=== PATIENT | female | born 1950 | race Two or more races ===

== ENCOUNTER 2019-05-08 20:40 | Inpatient (IN) ==
[2019-05-08] MEDS ORDERED: ONDANSETRON INJ 2 MG/ML 2 ML VIAL IV STA (21:48)
[2019-05-08] MEDS ORDERED: SODIUM CHLORIDE 0.9% 1000ML 1,000 ML IV ONE (21:48)
[2019-05-08 22:01] LABS: Hemoglobin 13.7 g/dL (12.0-16.0); Mean Corpuscular Hgb Conc 34.3 g/dL (32-36); Mean Corpuscular Volume 84.6 fL (80-100); Mean Platelet Volume 10.4 fL (7.4-10.4); Platelet Count 448 K/uL (130-400); RDW Coefficient of Variation 13.1 % (11.5-14.5); RDW Standard Deviation 40.2 fL (36.4-46.3); Red Blood Count 4.73 M/uL (4.2-5.4); White Blood Count 19.02 K/uL (4.8-10.8)
[2019-05-08 22:17] LABS: Alanine Aminotransferase 19 U/L (12-78); Albumin Level 3.5 gm/dl (3.4-5.0); Aspartate Aminotransferase 14 U/L (15-37); BUN Creatinine Ratio 14.8 (10-20); Blood Urea Nitrogen 19 mg/dl (7-18); Calcium 8.9 mg/dl (8.5-10.1); Carbon Dioxide 28 mmol/L (21-32); Chloride 89 mmol/L (98-107); Creatinine Clr Calc Pharmacy 48.2 ml/min; Est GFR (African American) 48.5; Est GFR (Non-African American) 41.8; Glucose 138 mg/dl (70-99); Lipase 323 U/L (73-393); Potassium 3.8 mmol/L (3.5-5.1); Sodium 128 mmol/L (136-145)
[2019-05-08 22:21] LABS: Albumin Globulin Ratio 0.7 (0.9-2); Alkaline Phosphatase 70 U/L (45-117); Bilirubin,Total 0.3 mg/dl (0.2-1); Total Protein 8.5 gm/dl (6.4-8.2); Troponin I < 0.015 ng/ml (0-0.045)
--- NOTE | 2019-05-08 22:48 | Ultrasound Report ---
US gallbladder HISTORY: Pain epigastric pain COMPARISON: None. FINDINGS: Fatty infiltration of liver. Limited visibility the pancreas is unremarkable. Normal gallbladder. Col or wall 5 mm possibly secondary to contracted state. Common bile duct 4 mm. Right kidney is negative for hydronephrosis. Extrarenal pelvis is present. IMPRESSION: 1. Moderately contracted gallbladder. 2. No shadowing gallstones. 3. Slight prominence of the renal pelvis versus extrarenal pelvis. The above report was generated using voice recognition software. It may contain grammatical, syntax or spelling errors. Electronically signed by: Irving Ren M.D. 05/08/2019 10:47 PM
--- NOTE | 2019-05-08 22:49 | XRay Report ---
XR chest 1V portable CLINICAL HISTORY: epigastric pain pain COMPARISON STUDY: No previous studies for comparison. FINDINGS: Interstitial infiltrate left base. Lungs otherwise appear clear. Diaphragms are smooth. IMPRESSION: Interstitial infiltrate left base. The above report was generated using voice recognition software. It may contain grammatical, syntax or spelling errors. Electronically signed by: Irving Ren M.D. 05/08/2019 10:48 PM
[2019-05-08 22:59] LABS: Basophils # (auto) 0.05 K/uL (0-0.2); Basophils % (auto) 0.3 %; Eosinophils # (auto) 0.17 K/uL (0-0.5); Eosinophils % (auto) 0.9 %; Immature Granulocytes # (auto) 0.09 K/uL (0.00-0.02); Immature Granulocytes % (auto) 0.5 %; Lymphocytes # (auto) 7.64 K/uL (1.2-3.4); Lymphocytes % (auto) 40.2 %; Monocytes # (auto) 1.36 K/uL (0.11-0.59); Monocytes % (auto) 7.2 %; Neutrophils # (auto) 9.71 K/uL (1.4-6.5); Neutrophils % (auto) 50.9 %
[2019-05-08 23:22] LABS: Appearance Urine Clear (Clear); Bilirubin Urine Negative (Negative); Blood Urine Negative (Negative); Color Urine Yellow; Glucose Urine UA Negative (Negative); Ketones Urine Negative (Negative); Leukocyte Esterase Urine Negative (Negative); Nitrite Urine Negative (Negative); Protein Urine Negative (Negative); Specific Gravity Urine 1.008 (1.000-1.030); Urobilinogen Urine Negative (Negative); pH Urine 6.5 (4.5-7.5)
--- NOTE | 2019-05-09 | Emergency Department Note ---
Entered by Erinn Cordon acting as a scribe for History of Present Illness General Chief complaint: Vomiting Stated complaint: VOMIT, TROUBLE EATING Time Seen by Provider: 05/08/19 21:35 Source: patient and family History of Present Illness Location: head (Vomiting) Pain Consistency: + other (persistent) Maximum Pain Intensity: 6 Quality: + other (Vomiting) Relieved By: not by medication (Increased diabetic medications) Exacerbated By: + eating Associated symptoms: + cough, + nausea/vomiting and + other (Positive abdominal pain, constipated. Negative dysuria, black or bloody stools.); no chest pain Treatments prior to arrival: none (Azithromycin ) The patient is a 68 year old female presenting to the Emergency Department complaining of persistent vomiting starting 2 weeks. The patients family reports that the patient has been vomiting and nauseous. They state that that the patient has been dealing with a cough. They explain that that her abdomen is painful. They note that the patient is a diabetic and that her Metformin and Insulin were both recently increased. They add that the patient has been taking Azithromycin for the past 5 days. The patients family reports that the patients symptoms worsen when she eats food. They state that the patient is constipated. They explain that the patient follows with Dr. Hamilton PCP. The patient denies dysuria, chest pain and black or bloody stools. History obtained through son interpreting, patient offered language line but declined, rather having her son interpret. Home Medications Home Medications Medication Instructions Recorded Confirmed Type atorvastatin 40 mg PO DAILY 05/08/19 05/08/19 History glimepiride 4 mg PO BID 05/08/19 05/08/19 History hydrochlorothiazide 12.5 mg PO DAILY 05/08/19 05/08/19 History insulin glargine [Basaglar KwikPen 40 unit SUBCUT QPM 05/08/19 05/08/19 History U-100 Insulin] irbesartan 300 mg PO DAILY 05/08/19 05/08/19 History levothyroxine 25 mcg PO UD 05/08/19 05/08/19 History levothyroxine 50 mcg PO .UD 05/08/19 05/08/19 History levothyroxine 100 mcg PO DAILY 05/08/19 05/08/19 History meloxicam 7.5 mg PO DAILY 05/08/19 05/08/19 History metformin 1,000 mg PO BID 05/08/19 05/08/19 History metoprolol succinate 25 mg PO DAILY 05/08/19 05/08/19 History sitagliptin [Januvia] 100 mg PO DAILY 05/08/19 05/08/19 History Allergies Allergy/AdvReac Type Severity Reaction Status Date / Time No Known Allergies Allergy Unverified 05/08/19 23:26 Past Med/Surg History Medical History High cholesterol Arthritis DM (diabetes mellitus) HTN (hypertension) Surgical History History of cholecystectomy Social History Communication Tools: IPad Feels Safe at Home: Yes Smoking Status: Never smoker Review of Systems See HPI for pertinent positives & negatives. and A total of 10 systems reviewed and were otherwise negative Physical Exam Vital Signs Vital Signs - 24 hr 05/08/19 20:47 05/08/19 23:00 05/08/19 23:46 Temperature 36.7 C Temperature Source Oral Sepsis Recent Fever Within 48 Hours No Sepsis New/Unexplained Change in Mental Status No Sepsis Action Taken by Nursing No Action Required Pulse Rate 80 Pulse Rate [Right Finger] 66 67 Respiratory Rate 20 18 18 Respiratory Effort / Characteristics Non-Labored Spontaneous Respiratory Depth Normal Respiratory Pattern Regular Blood Pressure 140/84 Blood Pressure [Left Arm] 137/74 142/75 H Blood Pressure Mean 102 Blood Pressure Mean [Left Arm] 95 97 Blood Pressure Position Sitting Blood Pressure Position [Left Arm] Sitting Sitting Pulse Oximetry 94 95 97 Oxygen Delivery Method Room Air Room Air Room Air General: Uncomfortable appearing middle aged female in no acute distress. HEENT: Normal cephalic atraumatic. Pupils are equal round and reactive to light. Extraocular movements are intact. Oropharynx is pink with moist mucous membranes. No swelling of the mouth lips or tongue. Neck: Supple with a midline trachea. No meningeal signs or stiffness, no JVD or bruits. No Stridor. Chest: Clear to auscultation bilaterally. No wheezes or rhonchi. No increased work of breathing. Heart: regular rate and rhythm. Abdomen: Tender to palpation in epigastric area. Soft, nondistended without rebound guarding or rigidity. Extremities: No cyanosis clubbing or edema. No calf tenderness or asymmetry Spine/Back. Non tender to palpation. No CVA tenderness Skin: Good turgor without rashes. Neurologic exam: Cranial nerves two through 12 are intact. Motor and sensation are intact and symmetrical throughout. Course 2137: The patient was evaluated in room C7, and a complete history and physical examination were performed. 2255: I reevaluated the patient at this time. 2329: I reevaluated the patient at this time and spoke with her family. I am waiting on her CT. 0045: I discussed the patient's case with Dr. Bowling [facility] hospitalist. He will evaluate the patient for further management. Administered Medications Discontinued Medications Sodium Chloride (Nss 1000ml) 1,000 mls @ 999 mls/hr IV .Q1H1M ONE Stop: 05/08/19 22:48 Last Infusion: 05/08/19 22:46 Dose: 0 mls/hr Documented by: [id number] Admin: 05/08/19 21:53 Dose: 999 mls/hr Documented by: [id number] Ondansetron HCl (Zofran) 4 mg IV NOW STA Stop: 05/08/19 21:49 Last Admin: 05/08/19 21:53 Dose: 4 mg Documented by: [id number] Medical Decision Making Differential Diagnosis Differentials include gallbladder disease, electrolyte or metabolic abnormality, cardiac disease, gastritis and peptic ulcer disease amongst others. Medical Records Attestation: I reviewed the patient's medical records. Home Medications Current Medication List: was personally reviewed by me Laboratory Data Attestation: I reviewed the patient's lab results. Result diagrams: 05/08/19 21:29 05/08/19 21:29 Lab Results 05/08/19 05/08/19 05/08/19 Range/Units 21:29 21:29 23:15 WBC 19.02 H (4.8-10.8) K/uL RBC 4.73 (4.2-5.4) M/uL Hgb 13.7 (12.0-16.0) g/dL Hct 40.0 (37-47) % MCV 84.6 (80-100) fL MCH 29.0 (25-34) pg MCHC 34.3 (32-36) g/dL RDW Std Deviation 40.2 (36.4-46.3) fL RDW Coeff of Margaret 13.1 (11.5-14.5) % Plt Count 448 H (130-400) K/uL MPV 10.4 (7.4-10.4) fL Immature Gran % (Auto) 0.5 % Neut % (Auto) 50.9 % Lymph % (Auto) 40.2 % [place] % (Auto) 7.2 % Eos % (Auto) 0.9 % Baso % (Auto) 0.3 % Immature Gran # (Auto) 0.09 H (0.00-0.02) K/uL Neut # (Auto) 9.71 H (1.4-6.5) K/uL Lymph # (Auto) 7.64 H (1.2-3.4) K/uL [place] # (Auto) 1.36 H (0.11-0.59) K/uL Eos # (Auto) 0.17 (0-0.5) K/uL Baso # (Auto) 0.05 (0-0.2) K/uL Sodium 128 L (136-145) mmol/L Potassium 3.8 (3.5-5.1) mmol/L Chloride 89 L (98-107) mmol/L Carbon Dioxide 28 (21-32) mmol/L Anion Gap 11.0 (3-11) BUN 19 H (7-18) mg/dl Creatinine 1.30 H (0.6-1.2) mg/dl Est Cr Clr Drug Dosing 48.2 ml/min Est GFR ( Amer) 48.5 Est GFR (Non-Af Amer) 41.8 BUN/Creatinine Ratio 14.8 (10-20) Glucose 138 H (70-99) mg/dl Calcium 8.9 (8.5-10.1) mg/dl Total Bilirubin 0.3 (0.2-1) mg/dl AST 14 L (15-37) U/L ALT 19 (12-78) U/L Alkaline Phosphatase 70 (45-117) U/L Troponin I < 0.015 (0-0.045) ng/ml Total Protein 8.5 H (6.4-8.2) gm/dl Albumin 3.5 (3.4-5.0) gm/dl Globulin 5.0 H (2.5-4.0) gm/dl Albumin/Globulin Ratio 0.7 L (0.9-2) Lipase 323 (73-393) U/L Urine Color Yellow Urine Appearance Clear (Clear) Urine pH 6.5 (4.5-7.5) Ur Specific [place] 1.008 (1.000-1.030) Urine Protein Negative (Negative) Urine Glucose (UA) Negative (Negative) Urine Ketones Negative (Negative) Urine Blood Negative (Negative) Urine Nitrite Negative (Negative) Urine Bilirubin Negative (Negative) Urine Urobilinogen Negative (Negative) Ur Leukocyte Esterase Negative (Negative) Imaging Data Radiologist's Impression: Radiology results as stated below per my review and the radiologist's interpretation: US gallbladder HISTORY: Pain epigastric pain COMPARISON: None. FINDINGS: Fatty infiltration of liver. Limited visibility the pancreas is unremarkable. Normal gallbladder. Color wall 5 mm possibly secondary to contracted state. Common bile duct 4 mm. Right kidney is negative for hydronephrosis. Extrarenal pelvis is present. IMPRESSION: 1. Moderately contracted gallbladder. 2. No shadowing gallstones. 3. Slight prominence of the renal pelvis versus extrarenal pelvis. The above report was generated using voice recognition software. It may contain grammatical, syntax or spelling errors. Electronically signed by: Irving Ren M.D. 05/08/2019 10:47 PM XR chest 1V portable CLINICAL HISTORY: epigastric pain pain COMPARISON STUDY: No previous studies for comparison. FINDINGS: Interstitial infiltrate left base. Lungs otherwise appear clear. Diaphragms are smooth. IMPRESSION: Interstitial infiltrate left base. The above report was generated using voice recognition software. It may contain grammatical, syntax or spelling errors. Electronically signed by: Irving Ren M.D. 05/08/2019 10:48 PM ECG Data Attestation: I personally reviewed and interpreted this ECG as follows: Indication: + abdominal pain and + vomiting Rate (beats per minute): 73 Rhythm: + normal sinus ECG ST segments: no ST depression and no ST elevation ECG Findings: no PACs and no PVCs Comparison ECG Date: no prior available Blood Pressure Blood Pressure Findings: Elevated blood pressure Blood Pressure Disposition: further management by hospitalist [facility] Narrative This patient comes in after having vomiting for several days. Her son thinks that this may be related to some medications that she has been on. They changed several of her diabetic medications. She also was on amoxicillin recently as well. She had a cough last week but none since she had no fever she complain of epigastric pain. IV access was established. she was hydrated with a 1 L IV normal saline bolus. Chest x-ray shows a possible infiltrate in the left base. She was she does have an elevated white count of 19,000. She has no acute electrolyte or metabolic abnormalities. Her liver functions are lipase are normal which would go against gallbladder liver and pancreas disease. Gallbladder ultrasound was unremarkable. Her sodium is low at 128. BUN and creatinine are also mildly elevated consistent with dehydration. She was also given IV Zofran. I did do a CAT scan of her abdomen as well. CAT scan shows a small hiatal hernia but no other acute findings. It is possible she could have a pneumonia although clinically I think that is less likely at this point I do think she is mostly just dehydrated and has gastritis. I do think she needs to be admitted for further hydration and evaluation. I have consulted Dr. Bowling to admit/observe her for these measures. Impression & Plan Epigastric pain, Dehydration, Vomiting, Elevated WBC count, Hyponatremia Discharge Plan Visit Data Chief Complaint: Vomiting Stated Complaint: VOMIT, TROUBLE EATING ED Provider: Giorgi Pickett Discharge Problem: Epigastric pain, Dehydration, Vomiting, Elevated WBC count, Hyponatremia Patient Disposition: Being Evaluated by Hospitalist Forms Stand Alone Forms: [facility] Prescriptions Prescriptions: No Action metformin 500 mg tablet extended release 24 hr 1,000 mg PO BID RF: 0 hydrochlorothiazide 12.5 mg capsule 12.5 mg PO DAILY RF: 0 Maniaglmor Lara U-100 Insulin 100 unit/mL (3 mL) insulin pen 40 unit subcut QPM RF: 0 atorvastatin 40 mg tablet 40 mg PO DAILY RF: 0 metoprolol succinate 25 mg tablet extended release 24 hr 25 mg PO DAILY RF: 0 glimepiride 4 mg tablet 4 mg PO BID RF: 0 meloxicam 7.5 mg Tablet 7.5 mg PO DAILY RF: 0 Januvia 100 mg tablet 100 mg PO DAILY RF: 0 levothyroxine 100 mcg tablet 100 mcg PO DAILY RF: 0 levothyroxine 50 mcg tablet 50 mcg PO .UD RF: 0 levothyroxine 50 mcg tablet 25 mcg PO UD RF: 0 irbesartan 300 mg tablet 300 mg PO DAILY RF: 0 Referrals Referrals: Yolis Loja MD [Primary Care Provider] - Discharge Problem: Vomiting Qualifiers: Vomiting type: unspecified Vomiting Intractability: unspecified Nausea presence: with nausea Qualified Code(s): R11.2 - Nausea with vomiting, unspecified Elevated WBC count Qualifiers: Leukocytosis type: unspecified Qualified Code(s): D72.829 - Elevated white blood cell count, unspecified The scribe's documentation has been prepared under my direction and personally reviewed by me in its entirety. I confirm that the note above accurately reflects all work, treatment, procedures, and medical decision making performed by me.
[2019-05-09] MEDS ORDERED: ACETAMINOPHEN 325 MG TAB PO PRN (03:06)
[2019-05-09] MEDS ORDERED: LEVOTHYROXINE SODIUM 50 MCG TABLET PO SCH (03:06)
[2019-05-09] MEDS ORDERED: ONDANSETRON INJ 2 MG/ML 2 ML VIAL IV PRN (03:06)
[2019-05-09] MEDS ORDERED: SODIUM CHLORIDE 0.9% 1000ML 1,000 ML IV SCH (03:06)
[2019-05-09] MEDS: FAMOTIDINE 20 MG in SYRINGE 3 ML IV SCH ×2 (03:35→21:06)
[2019-05-09] MEDS: cefTRIAXone SODIUM 2,000 MG in DEXTROSE 5% 50 ML IV SCH (03:36)
[2019-05-09] MEDS ORDERED: AZITHROMYCIN 500 MG in DEXTROSE 5% 250 ML IV ONE (04:00)
[2019-05-09] MEDS ORDERED: CARBOHYDRATES FOR HYPOGLYCEMIA PO PRN (04:15)
[2019-05-09] MEDS ORDERED: DEXTROSE 50% 50 ML SYRINGE IV PRN (04:15)
[2019-05-09] MEDS ORDERED: GLUCAGON FOR INJ 1 MG VIAL IM PRN (04:15)
[2019-05-09] MEDS ORDERED: GLUCOSE 40% GEL 15 GM TUBE PO PRN (04:15)
[2019-05-09] MEDS ORDERED: GLUCOSE 10 TABS/TUBE PO PRN (04:15)
--- NOTE | 2019-05-09 04:43 | History and Physical Report ---
DATE OF ADMISSION: 05/09/2019 CHIEF COMPLAINT: Nausea, vomiting and epigastric abdominal pain. HISTORY OF PRESENT ILLNESS: This is a 68-year-old female with past medical history significant for diabetes type 2, hypothyroidism, hyperlipidemia, hypertension, chronic bilateral low back pain, presents with nausea, vomiting and epigastric abdominal pain since last 4-5 days. The patient speaks Swedish, so all information has got from the welt rougher. Early when the ER physician was examined, her son was there, but her son left. The patient since last 4 or 5 days, she is having several episodes of vomiting and also having epigastric pain. She attributes it to the recent increase in her diabetes medication. She was taking 1 tablet twice daily, now they increased to 2 tablets twice daily. She is also on antibiotic for sinus/URI infection but she thinks her symptoms from diabetic medication. She is not able to keep anything down. She is vomiting whatever she eats. Initially, she thought there could have been small amount of blood in the initial episode, but right now there is no blood in the vomitus. Bowels are moving fine. No black stools or blood in the stools. Pain is in the epigastric region. When she came in, it was 8/10 in severity, but after giving medication in the ER, now pain is much improved. She seems comfortable and hemodynamically stable. A couple of weeks ago, she had cold symptoms with runny nose, sore throat and lot of cough and also left eye redness. She was treated with antibiotics and her symptoms almost gone except she still has some cough, though it is not as bad as before still coughing some yellowish phlegm. Denies any chest pain currently, no shortness of breath currently. Ambulates okay for short distances, has had bilateral knee pains. No blurred visions. She has headaches on and off. ALLERGIES: No known drug allergies. PAST MEDICAL HISTORY: As mentioned above. PAST SURGICAL HISTORY: Colonoscopy, removal of thyroid gland. MEDICATIONS AT HOME: The patient is currently on amoxicillin 500 mg p.o. t.i.d. for 10 days; last dose was 05/13/2019. Basaglar insulin 40 units at bedtime; metformin ER 1000 mg b.i.d.; Januvia 100 mg p.o. daily; hydrochlorothiazide 12.5 mg p.o. daily; Avapro 300 mg p.o. at bedtime; levothyroxine 100 mcg daily; levothyroxine 50 mcg on Wednesday; levothyroxine 25 mcg on Wednesday, Wednesday, Wednesday, , Wednesday, Wednesday; Toprol-XL 25 mg p.o. daily; Lipitor 40 mg p.o. daily; triamcinolone apply topically b.i.d.; loratadine 10 mg p.o. daily; meloxicam 7.5 mg p.o. daily; calcium acetate-magnesium 1 tablet daily; vitamin D 5000 units p.o. daily; aspirin 81 mg p.o. daily. FAMILY HISTORY: Significant for sister who has breast cancer. SOCIAL HISTORY: , currently lives with her son? No smoking, no alcohol, no drug use. REVIEW OF SYMPTOMS: As per HPI. PHYSICAL EXAMINATION: GENERAL: The patient is alert and awake, not in acute distress. VITAL SIGNS: Temperature 36.7, pulse 63, respiratory rate 16, blood pressure 145/77, oxygen 94% room air. HEENT: No pallor, no icterus. Pupils equal, round, and reactive to light. Oral mucosa dry. NECK: No JVD, no neck masses, no carotid bruit. CARDIOVASCULAR: S1, S2 heard, regular rate and rhythm, no murmur, no gallop. RESPIRATORY SYSTEM: Normal AP diameter. No accessory muscle use. No wheezing, no crackles. ABDOMEN: Epigastric tenderness present, no guarding, no rigidity. No distention, no rebound tenderness. CENTRAL NERVOUS SYSTEM: Alert and awake. Obeys simple commands. Moves extremities. EXTREMITIES: No lower extremity edema present, no erythema seen. LABORATORIES DATA: WBC 19, hemoglobin 13.7, hematocrit 40, platelets 448. Sodium 128, potassium 3.8, chloride 89, bicarbonate 28, BUN 19, creatinine 1.3, serum glucose 138, calcium 8.9, total bilirubin 0.3, AST 14, ALT 19, alkaline phosphatase 70. Troponin I less than 0.015. Urinalysis negative. Chest x-ray, interstitial infiltrate left base. Gallbladder ultrasound, moderately contracted gallbladder, no shadowing gallstones, slight prominence of right renal pelvis versus extrarenal.CT bd/pelvis pending EKG: Normal sinus rhythm with rate of 73, no acute ST changes seen. ASSESSMENT AND PLAN: This is a 68-year-old female who recently was treated for upper respiratory symptoms / sinusitis, started on amoxicillin, to be done on 05/13/2019, comes because of nausea, vomiting and epigastric pain since last 4-5 days. She says the pain started since she her diabetes medication increased. . 1. Nausea, vomiting, abdominal pain, leukocytosis, white count 19, otherwise afebrile, hemodynamically stable, possible pneumonia on chest x-ray, left lower lobe. She is also having cough with some yellowish phlegm. It has improved with antibiotic, amoxicillin. Symptoms could be from pneumonia, could be from the recent possibly increase of metformin. We will hold metformin. We will keep her n.p.o. for now, IV antiemetics, IV gentle fluids. We will start on antibiotic Rocephin and azithromycin. Follow the blood cultures and sputum cultures. Monitor on the medical floor. Gallbladder ultrasound is okay and CT scan of the abdomen and pelvis, unofficial read is okay. We will follow the official report. If any concerns, we will consult GI. We will place on IV Pepcid b.i.d. for now. 2. Hyponatremia. Sodium of 128, most likely from nausea and vomiting. Her sodium was normal at 140s in March. She got some fluids in the ER. We will place her on normal saline at 50 mL per hour. We will closely follow the sodium levels. 3. Diabetes. She is currently n.p.o. We will cut back on the Basaglar insulin to 20 units at bedtime, if started on diet will give her full dose. ISS. Holding the metformin, Januvia and glimepiride(glimepiride not in [facility] but seems to be filled in pharmacy). We will follow the blood sugars, follow hemoglobin A1c levels. 4. Hyperlipidemia. Continue statin. 5. Hypothyroidism. Continue Synthroid. 6. Chronic pain. Holding the meloxicam as the patient is having epigastric pain and also acute kidney injury. 7. Acute kidney injury on chronic kidney disease stage III, baseline creatinine around 1, presents with creatinine of 1.3, getting gentle fluids. We will follow the labs in am. Holding the hydrochlorothiazide. If worsens will hold irbesartan. 8. Hypertension. Continue Toprol-XL,irbesartan. Holding hydrochlorothiazide. Follow the blood pressure. 9. Ambulatory dysfunction. has knee pain pt/ot when stable. 10.Lower extremity edema. Mild. HCTZ on hold. Recent echo 09/2018 normal EF.Will monitor. 11. Deep venous thrombosis prophylaxis, sequential compression devices for now. 12. Disposition: Observation in medical floor. Level 1 full code. Addendum: recheck na 132. Stopped fluids. Will follow next labs. Also will check serum osmolality and urine osmolality. MTDD
[2019-05-09] MEDS: INSULIN ASPART 100 UNITS/ML 3 ML PEN SC SCH ×4 (05:05→21:03)
[2019-05-09] MEDS: LEVOTHYROXINE SODIUM 125 MCG TABLET PO SCH (06:26)
[2019-05-09 07:31] LABS: Hematocrit (blood only) 35.2 % (37-47); Hemoglobin 12.2 g/dL (12.0-16.0); Mean Corpuscular Hgb Conc 34.7 g/dL (32-36); Mean Corpuscular Volume 83.8 fL (80-100); Mean Platelet Volume 9.7 fL (7.4-10.4); Platelet Count 346 K/uL (130-400); RDW Coefficient of Variation 13.2 % (11.5-14.5); RDW Standard Deviation 39.8 fL (36.4-46.3); White Blood Count 13.98 K/uL (4.8-10.8)
--- NOTE | 2019-05-09 07:35 | CT Scan Report ---
CT abd pelvis wo con CLINICAL HISTORY: 68 years-old Female presenting with epigastric pain, elevated wbc count. TECHNIQUE: Multidetector CT of the abdomen and pelvis was performed without the use of intravenous co ntrast. IV contrast: None. One or more dose lowering techniques were used consistent with the princip les of ALA (as low as reasonably achievable), including automatic exposure control, mA or kV adjust ment to individual patient size, and/or use of iterative reconstruction. COMPARISON: None. CT DOSE (mGy.cm): The estimated cumulative dose is 957.18 mGy.cm. FINDINGS: Vinyl Installer topogram: Unremarkable. Lung bases: Top normal heart size. No pericardial or pleural effusion. Minimal dependent changes like ly atelectasis. Liver: Normal morphology. Normal density. Biliary: No gross biliary ductal dilatation allowing for noncontrast technique. Gallbladder decompres sed. Pancreas: Normal noncontrast appearance. Spleen: Normal noncontrast appearance. The spleen is top normal in size measuring 12 cm in maximal sa gittal dimension. Adrenal glands: Normal noncontrast appearance. Kidneys and ureters: Macroscopic fat lesion anteriorly in the interpolar region of the right kidney m easuring 1.8 cm, possibly angiomyolipoma or a prominent junctional parenchymal defect. Otherwise norm al noncontrast appearance of the kidneys. No nephrolithiasis or hydronephrosis. Ureters nondistended. Bladder: Incompletely evaluated secondary to underdistention. Pelvic organs: Normal noncontrast appearance. Bowel: Normal appendix. No bowel obstruction. Trace sliding type hiatal hernia. Diverticulum at the j ejunum. Trace if any surrounding fat stranding is present. No significant other small bowel diverticu la are present. Peritoneal cavity: No free fluid or intraperitoneal gas. Lymph nodes: Numerous enlarged lymph nodes primarily in the retroperitoneum in the abdomen measuring up to 11 mm in short axis. These are most evident in the left periaortic, aortocaval, and pericaval r egions. Prominent left axillary lymph nodes are also partially visualized though these are subcentime ter. Scattered subcentimeter prominent mesenteric lymph nodes. Vasculature: Atherosclerosis of the normal caliber abdominal aorta. Abdominal wall: Normal. Musculoskeletal: Degenerative changes of the spine. IMPRESSION: 1. Retroperitoneal lymphadenopathy. This raises concern for an underlying lymphoproliferative diseas e or metastatic disease. A systemic reactive or inflammatory etiology is also possible. This necessit ates follow-up. PET/CT may better demonstrate which of the lymph nodes are most suspicious. 2. Allowing for noncontrast technique, no acute intra-abdominal pathology. 3. Jejunal diverticulum. No convincing evidence of diverticulitis at this time. 4. Possible right renal angiomyolipoma or a prominent junctional parenchymal defect. Electronically signed by: Juan Vazquez M.D. 05/09/2019 7:34 AM
[2019-05-09 08:00] LABS: BUN Creatinine Ratio 14.8 (10-20); Calcium 8.2 mg/dl (8.5-10.1); Creatinine Clr Calc Pharmacy 59.1 ml/min; Est GFR (African American) 62.8; Est GFR (Non-African American) 54.1; Magnesium 1.6 mg/dl (1.8-2.4); Potassium 3.7 mmol/L (3.5-5.1)
[2019-05-09] MEDS: IRBESARTAN 150 MG TAB PO SCH (08:21)
[2019-05-09] MEDS: ASPIRIN 81 MG ECTAB PO SCH (08:22)
[2019-05-09] MEDS: METOPROLOL SUCC 25MG EXT REL TAB PO SCH (08:22)
[2019-05-09] MEDS: ATORVASTATIN 40 MG TAB PO SCH (08:22)
[2019-05-09 08:37] LABS: ALC (manual) 7.12 K/uL (1.2-3.4); ANC (manual) 6.61 K/uL (1.4-6.5); Basophils # (manual) 0.25 K/uL (0-0.2); Basophils % (manual) 1.8 %; Lymphocytes # (manual) 2.95 K/uL (1.2-3.4); Lymphocytes % (manual) 21.1 %; Neutrophils # (manual) 6.61 K/uL (1.4-6.5); Neutrophils % (manual) 47.3 %; Reactive Lymphocytes # (manual) 4.17 K/uL; Reactive Lymphocytes % (manual) 29.8 %
[2019-05-09 08:41] LABS: Estimated Average Glucose 177 mg/dl; Hemoglobin A1C 7.8 % (4.5-5.6)
[2019-05-09] MEDS ORDERED: FAMOTIDINE 20 MG in SYRINGE 3 ML IV SCH (09:00)
--- NOTE | 2019-05-09 14:10 | Gastrointestinal Consultation ---
Date of Consultation May 09, 2019 Assessment & Plan (1) Epigastric pain: Epigastric pain. In addition to diabetic gastroparesis and medication induced nausea, differntials considered are gastritis, ulcer disease. 1. Will plan for EGD tomorrow. 2. May have clear liquids po today. NPO after midnight. Present on Admission?: Yes (2) Vomiting: Consider decreasing the dosage of these medications and using other medication for blood sugar control. Consider NM GES if EGD normal - or can be done as an OP. Could be ordered by Dr. Rod at OP GI f/u. Present on Admission?: Yes (3) Lymphadenopathy: Due to finding of retroperitoneal lymphadenopathy, pt will need a work up to r/o malignancy including lymphoma. Consider repeat CT abd/pelvis with IV and oral contrast. This can be completed as an OP. She will follow up with Dr. Rod in the GI office in 6 wks. He will order gastric emptying and CT scan. Present on Admission?: Yes Supervising Physician Co-Signing Physician Notes I performed a history and physical examination of the patient, including specifically on physical exam - soft, nontender abdomen. I have discussed the patient's management with Marty. Please refer to the nurse practitioner's note for the documented findings and plan of care. 68 yrs old female patient presented with 5 days of nausea, vomiting and abdominal pain, this happened after her DM meds were increased including Metformin and Januvia and recent URTI requiring ABx. Also she was [place] but declined any similar symptoms there. No fever or diarrhea. Feels better now in the hospital. Labs showed some ROSIO with dehydration. CT scan showed enlarged axillary and retroperitoneal LNs. Plan: EGD tomorrow. GES as OP. Consider Hem/Onc evaluation for the enlarged LNs to r/o Lymphoma and repeat CT scan in 3 months as these may be reactive in the setting of gastroenteritis and her recent illness. History of Present Illness Reason for Consultation: abdominal pain, nausea, vomiting Requesting Physician: Dr. Hall Attending Physician: Jeronimo Hall MD History of Present Illness Ms. Brunilda Haque is a 68 yr old [place] female with a hx of DM2, hypothyroidism, hyperlipidemia, hypertension, chronic bilateral low back pain, who presented to the ED late last night for nausea, vomiting and epigastric abdominal pain. Through the use of the yoga coordinator, pt tells me that she experienced a sudden onset of symptoms. Pain is epigastric. Vomiting occurs about 3-4 times per, bringing back up what she eat 1/2 hr to a few hrs previously. She does not have blood in her emesis. Initially, she denied having any symptoms previously but eventually told us that she has chronic early satiety, upper abdomen postprandial fullness. She believes that this occurred because of these med changes: Januvia increased from 1->2 x/day; Glucophage increased from 1->4 times/day. On arrival, WBC 13.9. Hb/Hct and BUN are normal. Na is 131. Cr 1.05. A non contrast CT is suggestive of retroperitoneal lymphadenopathy. On exam, Valeria Haque appears well and has a soft, non-tender abdomen. She has been kept NPO. Allergies Allergy/AdvReac Type Severity Reaction Status Date / Time No Known Allergies Allergy Unverified 05/08/19 23:26 Home Medications Home Medications Medication Instructions Recorded Confirmed Type atorvastatin 40 mg PO DAILY 05/08/19 05/08/19 History glimepiride 4 mg PO BID 05/08/19 05/08/19 History hydrochlorothiazide 12.5 mg PO DAILY 05/08/19 05/08/19 History insulin glargine [Basaglar KwikPen 40 unit SUBCUT QPM 05/08/19 05/08/19 History U-100 Insulin] irbesartan 300 mg PO DAILY 05/08/19 05/08/19 History levothyroxine 25 mcg PO UD 05/08/19 05/08/19 History levothyroxine 50 mcg PO .UD 05/08/19 05/08/19 History levothyroxine 100 mcg PO DAILY 05/08/19 05/08/19 History meloxicam 7.5 mg PO DAILY 05/08/19 05/08/19 History metformin 1,000 mg PO BID 05/08/19 05/08/19 History metoprolol succinate 25 mg PO DAILY 05/08/19 05/08/19 History sitagliptin [Januvia] 100 mg PO DAILY 05/08/19 05/08/19 History Aspirin Low Dose 81 mg PO DAILY 05/09/19 05/09/19 History Patient History Medical History High cholesterol Arthritis DM (diabetes mellitus) HTN (hypertension) Surgical History History of cholecystectomy Social History Preferred Language: Chinese Communication Ability Comment: language barrier Communication Tools: IPad Mri Specialist Required: Video and No Beliefs That Will Affect Care: None Current Living Situation: Family Feels Safe at Home: Yes Safety Concerns: Feels Safe At This Time Smoking Status: Never smoker Hx Alcohol Use: No Hx Substance Use: No Review of Systems Review of Systems: ROS: Gen: Denies weakness, fevers, weight loss Eyes: No eye redness, or pain, no recent vision changes Resp: No SOB, no cough Cardio: No palpitations/irregular beats, no chest pain GI: + mild abdominal pain, + nausea/vomiting : Denies pain on urination Skin: No jaundice, itching or new rashes Physical Exam Constitutional: WD/WN, vitals as above + obese Eyes: PERRL, conjunctivae normal, anicteric sclerae ENMT: external ear and nose normal, oropharynx normal Neck: trachea midline, no thyromegaly Respiratory: normal respiratory effort, lungs clear to auscultation Cardiovascular: RRR, no murmur, no edema Gastrointestinal (Abdomen): Inspection/Auscultation: abdomen normal to inspection and normal bowel sounds Percussion/Palpation: + abdomen tender (mild, epigastric) and abdomen soft Musculoskeletal: no cyanosis or clubbing, extremities motor strength 5/5 Skin: no rashes, warm and dry Neurologic: patellar DTR's 2+ bilat, sensation intact Psychiatric: A+Ox3, euthymic affect Lymphatic: no cervical or axillary lymphadenopathy Results & Data Vital Signs (Past 12 Hours) Vital Signs Temp Pulse Pulse Resp BP BP Pulse Ox 05/09/19 11:32 36.4 C L 72 16 114/67 92 05/09/19 07:37 36.3 C L 65 16 116/73 94 05/09/19 02:58 36.5 C 67 16 152/91 H 92 05/09/19 02:43 61 16 148/84 H 95 Laboratory Results WBC 19->13, Hb 12/Hct 35, BUN 16, Na 128-> 131, Cr 1.05. Diagnostic Findings Non contrast CT on 05/08/19: 1. Retroperitoneal lymphadenopathy. This raises concern for an underlying lymphoproliferative disease or metastatic disease. A systemic reactive or inflammatory etiology is also possible. This necessitates follow-up. PET/CT may better demonstrate which of the lymph nodes are most suspicious. 2. Allowing for noncontrast technique, no acute intra-abdominal pathology. 3. Jejunal diverticulum. No convincing evidence of diverticulitis at this time. 4. Possible right renal angiomyolipoma or a prominent junctional parenchymal defect. US 05/08/19: 1. Moderately contracted gallbladder. 2. No shadowing gallstones. 3. Slight prominence of the renal pelvis versus extrarenal pelvis. (1) Vomiting Nausea presence: with nausea Vomiting Intractability: unspecified Vomiting type: unspecified Qualified Code(s): R11.2 - Nausea with vomiting, unspecified
[2019-05-09] MEDS ORDERED: Nursing to Pharmacy Communication ONE (14:59)
[2019-05-09] MEDS ORDERED: INSULIN GLARGINE SOLOSTAR 100 UNITS/ML 3 ML PEN SC SCH (21:00)
--- NOTE | 2019-05-09 22:48 | Hospitalist Progress Note ---
Date of Service May 09, 2019 Assessment & Plan (1) Epigastric pain: Presented with abdominal pain, nausea, vomiting. Noted small amount of blood. Was taking meloxicam until about a month ago; stopped it because of GI upset. Recently taking occasional doses of ibuprofen. Doses of metformin and sitagliptin recently increased. No acute findings on CT of abdomen and pelvis (although retroperitoneal adenopathy noted as discussed below). GI symptoms may be due to gastropathy, meds, or other etiologies. Receiving IV famotidine. GI consulted. (2) Cough: Recent cough treated with amoxicillin. Admission chest x-ray showed interstitial infiltrate left base. Treated for possible pneumonia with IV ceftriaxone. Lung bases on CT of abdomen / pelvis demonstrated minimal dependent changes, likely atelectatic. Diagnosis of pneumonia uncertain. Continue IV ceftriaxone for now. Check procalcitonin with labs tomorrow. (3) Lymphadenopathy: Retroperitoneal adenopathy noted on CT of abdomen + pelvis. Largest nodes measured 11 mm. Differential diagnosis include infection, inflammatory diseases, malignancy. No apparent systemic symptoms such as fever, sweats, weight loss. Discussed with family. Radiology recommended PET scan as outpatient. Outpatient Hematology / Oncology consultation. (4) Hyponatremia: Serum sodium 128 --> 131. HCTZ and vomiting +/- SIADH. Hold HCTZ. Follow. (5) Hypomagnesemia: Serum Mg 1.6. Replace. Follow. (6) HTN (hypertension): Hold HCTZ because of hyponatremia. Continue irbesartan. (7) Diabetes mellitus type 2, controlled: DM type 2, managed with metformin, glimepiride, sitagliptin, insulin. Recent increased doses of metformin and sitagliptin could be contributing to GI symptoms. Hgb A1C = 7.8. Lantus / NovoLog per protocol. FGS today = 138. Consider stopping or reducing metformin dose upon discharge. (8) DVT prophylaxis: SCD's. Ambulate. (9) Discharge planning issues: Anticipated discharge to home. Internal Medicine follow-up with Dr. Yolis Loja. Subjective Recheck for multiple problems. Patient seen in their room around 1100. Translation service utilized. Sons at bedside and on speakerphone. Admitted yesterday for abdominal pain, nausea, vomiting. GI symptoms improved today. Still has some epigastric discomfort. No further nausea or vomiting. Occasional cough. Review of Systems: Constitutional- no fever. Cardiac- no chest pain. Pulmonary- as noted above. GI- as noted above. - Otherwise, as noted above. Physical Exam Constitutional: no acute distress Respiratory: no respiratory distress Auscultation: lungs clear to auscultation bilaterally Cardiovascular: Rate/Rhythm: regular rate and regular rhythm Heart Sounds: no gallop, no murmur and no cardiac rub Vessels: no JVD Extremities: no calf tenderness and no edema Gastrointestinal (Abdomen): Inspection/Auscultation: normal bowel sounds Percussion/Palpation: + abdomen tender (mild epigastric) and abdomen soft; no guarding Skin: no rashes, warm and dry Psychiatric: Orientation: alert and oriented x 3 Results & Data Vital Signs (Past 12 Hours) Vital Signs Temp Pulse Resp BP BP Pulse Ox 05/09/19 19:48 36.5 C 64 16 124/77 95 05/09/19 15:21 36.7 C 70 18 119/75 95 05/09/19 11:32 36.4 C L 72 16 114/67 92 Laboratory Results 05/09/19 07:15 05/09/19 07:15
[2019-05-10] MEDS: LEVOTHYROXINE SODIUM 125 MCG TABLET PO SCH (06:16)
[2019-05-10 07:13] LABS: Hematocrit (blood only) 38.3 % (37-47); Mean Corpuscular Hemoglobin 28.8 pg (25-34); Mean Corpuscular Hgb Conc 33.9 g/dL (32-36); Mean Corpuscular Volume 84.9 fL (80-100); Mean Platelet Volume 10.1 fL (7.4-10.4); Platelet Count 397 K/uL (130-400); RDW Coefficient of Variation 13.4 % (11.5-14.5); RDW Standard Deviation 41.4 fL (36.4-46.3); Red Blood Count 4.51 M/uL (4.2-5.4); White Blood Count 14.02 K/uL (4.8-10.8)
[2019-05-10 07:41] LABS: BUN Creatinine Ratio 11.4 (10-20); Calcium 8.6 mg/dl (8.5-10.1); Creatinine Clr Calc Pharmacy 64.6 ml/min; Est GFR (African American) 69.9; Est GFR (Non-African American) 60.3; Magnesium 1.8 mg/dl (1.8-2.4); Potassium 3.8 mmol/L (3.5-5.1)
[2019-05-10] MEDS: ATORVASTATIN 40 MG TAB PO SCH (09:17)
[2019-05-10] MEDS: ASPIRIN 81 MG ECTAB PO SCH (09:17)
[2019-05-10] MEDS: METOPROLOL SUCC 25MG EXT REL TAB PO SCH (09:18)
[2019-05-10] MEDS: IRBESARTAN 150 MG TAB PO SCH (09:18)
[2019-05-10] MEDS: cefTRIAXone SODIUM 2,000 MG in DEXTROSE 5% 50 ML IV SCH (09:27)
[2019-05-10] MEDS: FAMOTIDINE 20 MG in SYRINGE 3 ML IV SCH (09:27)
[2019-05-10] MEDS: INSULIN ASPART 100 UNITS/ML 3 ML PEN SC SCH ×2 (10:05→12:00)
--- NOTE | 2019-05-10 11:38 | Anesthesiology Consultation ---
Date of Service May 10, 2019 Assessment & Plan (1) Encounter for pre-operative examination: Chart Review Chart Review: Acceptable Risk for Surgery and Patient NOT seen in Pre Admission Testing Consults Requested none History Surgery Operation Date: 05/10/19 09:00 Proposed Procedures p Esophagogastroduodenoscopy Dr Rod - Sanjay Rod MD Height/Weight Height: 5 ft 4 in Weight: 102.9 kg Allergies Allergy/AdvReac Type Severity Reaction Status Date / Time No Known Allergies Allergy Unverified 05/08/19 23:26 Medications Home Medications Medication Instructions Recorded Confirmed Last Taken atorvastatin 40 mg PO DAILY 05/08/19 05/08/19 Unknown glimepiride 4 mg PO BID 05/08/19 05/08/19 Unknown hydrochlorothiazide 12.5 mg PO DAILY 05/08/19 05/08/19 Unknown insulin glargine [Basaglar KwikPen 40 unit SUBCUT QPM 05/08/19 05/08/19 Unknown U-100 Insulin] irbesartan 300 mg PO DAILY 05/08/19 05/08/19 Unknown levothyroxine 25 mcg PO UD 05/08/19 05/08/19 Unknown levothyroxine 50 mcg PO .UD 05/08/19 05/08/19 Unknown levothyroxine 100 mcg PO DAILY 05/08/19 05/08/19 Unknown meloxicam 7.5 mg PO DAILY 05/08/19 05/08/19 Unknown metformin 1,000 mg PO BID 05/08/19 05/08/19 Unknown metoprolol succinate 25 mg PO DAILY 05/08/19 05/08/19 Unknown sitagliptin [Januvia] 100 mg PO DAILY 05/08/19 05/08/19 Unknown Aspirin Low Dose 81 mg PO DAILY 05/09/19 05/09/19 Unknown Active Medications Generic Name Dose Route Start Last Admin Trade Name Freq PRN Reason Stop Dose Admin Aspirin 81 mg 05/09/19 09:00 05/10/19 09:17 Ecotrin Ectab PO 06/08/19 08:59 81 mg DAILY TAYE Administration Atorvastatin Calcium 40 mg 05/09/19 09:00 05/10/19 09:17 Lipitor PO 06/08/19 08:59 40 mg DAILY TAYE Administration Ceftriaxone Sodium 2,000 mg/ 70 mls @ 100 mls/hr 05/09/19 03:30 11/06/19 10:30 Dextrose IV 05/16/19 03:29 Infused DAILY TAYE Infusion Protocol Famotidine 20 mg/ Syringe 5 mls @ 2.5 mls/min 05/09/19 03:30 05/10/19 09:27 IV 06/08/19 03:29 2.5 mls/min BID TAYE Administration Insulin Aspart 0 units 05/09/19 16:30 05/10/19 10:05 Novolog Flexpen SC 06/08/19 16:29 Not Given ACHS TAYE Insulin Glargine 20 units 05/09/19 21:00 05/09/19 21:02 Lantus Solostar Pen SC 06/08/19 20:59 20 units HS TAYE Administration Irbesartan 300 mg 05/09/19 09:00 05/10/19 09:18 Avapro PO 06/08/19 08:59 300 mg DAILY TAYE Administration Levothyroxine Sodium 125 mcg 05/09/19 06:30 05/10/19 06:16 Synthroid PO 06/08/19 06:29 Not Given [id number] TAYE Metoprolol Succinate 25 mg 05/09/19 09:00 05/10/19 09:18 Toprol Xl PO 06/08/19 08:59 25 mg DAILY TAYE Administration Past Medical History Medical History High cholesterol Arthritis DM (diabetes mellitus) HTN (hypertension) Past Surgical History Surgical History History of cholecystectomy Social History Smoking Status: Never smoker Hx Alcohol Use: No Hx Substance Use: No Physical Exam Vital Signs Last Vital Signs Temp 36.9 C 05/10/19 07:59 Pulse 74 05/10/19 07:59 Resp 16 05/10/19 07:59 BP 146/82 H 05/10/19 07:59 Pulse Ox 96 05/10/19 07:59 Testing Laboratory Results 05/10/19 06:10 05/10/19 06:10 Hemoglobin A1c 7.8 % (4.5-5.6) H 05/09/19 07:15 Urine Color Yellow 05/08/19 23:15 Urine Appearance Clear (Clear) 05/08/19 23:15 Urine pH 6.5 (4.5-7.5) 05/08/19 23:15 Ur Specific [place] 1.008 (1.000-1.030) 05/08/19 23:15 Urine Protein Negative (Negative) 05/08/19 23:15 Urine Glucose (UA) Negative (Negative) 05/08/19 23:15 Urine Ketones Negative (Negative) 05/08/19 23:15 Urine Nitrite Negative (Negative) 05/08/19 23:15 Ur Leukocyte Esterase Negative (Negative) 05/08/19 23:15 05/09/19 03:24 Aerobic Blood Culture - Preliminary Blood No growth in Aerobic bottle after 24 hours. Anaerobic Blood Culture - Preliminary No growth in Anaerobic bottle after 24 hours. 05/08/19 21:30 Aerobic Blood Culture - Preliminary Blood No growth in Aerobic bottle after 24 hours. Anaerobic Blood Culture - Preliminary No growth in Anaerobic bottle after 24 hours.
[2019-05-10] MEDS ORDERED: ePHEDrine sulfate 50 MG/ML AMP IV PRN ×2 (11:47→12:23)
[2019-05-10] MEDS ORDERED: ATROPINE SULFATE 0.1 MG/ML 10ML SYR IV PRN ×2 (11:47→12:23)
[2019-05-10] MEDS ORDERED: PROPOFOL IV EMULSION 10 MG/ML 20 ML VIAL IV ONE (12:06)
[2019-05-10] MEDS ORDERED: LIDOCAINE HCL 2% 2 ML VIAL/AMP(20MG/ML) INFIL ONE (12:06)
--- NOTE | 2019-05-10 12:18 | History & Physical Bridge Note ---
Date of Service May 10, 2019 History & Physical Bridge Note I have examined the patient, reviewed the History & Physical and in the interval since the performance of the History & Physical I have noted the following changes of clinical significance: no changes noted
--- NOTE | 2019-05-10 14:43 | GI REPORT ---
Patient Name: Brunilda Haque Procedure Date: 05/10/2019 12:13 PM Date of : 1950 Admit Type: Inpatient Age: 68 Gender: Female Attending MD: Sanjay Rod MD Procedure: Upper GI endoscopy Providers: Sanjay Rod MD Referring MD: Yolis Loja Indications: Epigastric abdominal pain Medicines: Propofol per Anesthesia Complications: No immediate complications. Estimated Blood Loss: Estimated blood loss: none. Procedure: Pre-Anesthesia Assessment: - Prior to the procedure, a History and Physical was performed, and patient medications, allergies and sensitivities were reviewed. The patient's tolerance of previous anesthesia was reviewed. - The risks and benefits of the procedure and the sedation options and risks were discussed with the patient. All questions were answered and informed consent was obtained. - Patient identification and proposed procedure were verified prior to the procedure by the physician and the nurse. The procedure was verified in the procedure room. - Pre-procedure physical examination revealed no contraindications to sedation. After obtaining informed consent, the endoscope was passed under direct vision. Throughout the procedure, the patient's blood pressure, pulse, and oxygen saturations were monitored continuously. The Endoscope was introduced through the mouth, and advanced to the second part of duodenum. The upper GI endoscopy was accomplished without difficulty. The patient tolerated the procedure well. Findings: A 2 cm hiatal hernia was found. The proximal extent of the gastric folds (end of tubular esophagus) was 38 cm from the incisors. The hiatal narrowing was 40 cm from the incisors. The examined esophagus was normal. Mild inflammation characterized by erosions and erythema was found in the gastric antrum. Biopsies were taken with a cold forceps for Helicobacter pylori testing. Verification of patient identification for the specimen was done by the physician and nurse using the patient's name and date. The duodenal bulb and second portion of the duodenum were normal. Biopsies were taken with a cold forceps for histology. Impression: - 2 cm hiatal hernia. - Normal esophagus. - Gastritis. Biopsied. - Normal duodenal bulb and second portion of the duodenum. Biopsied. Recommendation: - [facility]. - Await pathology results. - Use Protonix (pantoprazole) 40 mg PO daily for 3 months. - Avoid NSAIDs. - Return to GI clinic as previously scheduled. Sanjay Rod MD 05/10/2019 2:42:33 PM This report has been signed electronically. Note Initiated On: 05/10/2019 12:13 PM Number of Addenda: 0 I attest to the content of the Intraoperative Record and orders documented therein, exceptions below {[id number]}
--- NOTE | 2019-05-10 14:47 | Hospitalist Progress Note ---
Date of Service May 10, 2019 Assessment & Plan (1) Epigastric pain: Patient presented with abdominal pain, nausea, vomiting. Unclear etiology. DD: ?Medication induced (NSAIDs)--Meloxicam, Ibuprofen; recently increased on Metformin, sitagliptin; Gastroparesis --CT ABD:Retroperitoneal lymphadenopathy. This raises concern for an underlying lymphoproliferative disease or metastatic disease. A systemic reactive or inflammatory etiology is also possible. This necessitates follow-up. PET/CT may better demonstrate which of the lymph nodes are most suspicious. Allowing for noncontrast technique, no acute intra-abdominal pathology. Jejunal diverticulum. No convincing evidence of diverticulitis at this time. Possible right renal angiomyolipoma or a prominent junctional parenchymal defect. --EGD pending --Discontinue NSAIDs --Appreciate GI Input --Advance diet as tolerated --Continue Pepcid (2) Cough: Recently completed amoxicillin course CXR: Interstitial infiltrate left base. Treated for Azithromycin, IV ceftriaxone for possible pneumonia Lung bases on CT of abdomen / pelvis demonstrated minimal dependent changes, likely atelectatic. Pneumonia unlikely Normal procalcitonin, lactate levels Elevated WBC count likely due to CLL (3) Lymphadenopathy: Retroperitoneal adenopathy noted on CT of abdomen + pelvis. Largest nodes measured 11 mm. No systemic symptoms Peripheral smear with history of atypical lymphocytosis suspicious for CLL. No blast or schistocytes seen. Flow Cytometry pending Discussed with family Needs PET scan, oncology evaluation as outpatient. (4) Hyponatremia: Serum sodium 128 > 131 > 135 Likely due to HCTZ and vomiting +/- SIADH. HCTZ held for now Monitor sodium levels (5) Hypomagnesemia: Resolved Monitor (6) HTN (hypertension): BP relatively low Diuretics held Continue irbesartan with holding parameters monitor (7) Diabetes mellitus type 2, controlled: Hold PO meds Recently was increased on metformin and sitagliptin Hgb A1C: 7.8. Continue Lantus / NovoLog per protocol. Monitor BGs Consider decreasing metformin dose upon discharge. (8) DVT prophylaxis: SCDs for now (9) Discharge planning issues: Expect to discharge home when stable Internal Medicine follow-up with Dr. Yolis Loja. Subjective Patient is seen and examined at bedside Doing well today Denies any nausea, vomiting, abd pain, chest pain, SOB, dizziness Planned for EGD today Offers no other complaints Family at bedside Review of Systems Review of Systems: All systems reviewed & are unremarkable except as noted in HPI & below Physical Exam Physical Exam: Physical Exam: Vitals signs as noted above General Appearance:Obese, apparent distress Head: normocephalic, Atraumatic Eyes: normal inspection, EOMI Neck: supple, Trachea midline Respiratory/Chest: Normal breath sounds, CTA, No accessory muscle use Cardiovascular: S1, S2, No murmur Abdomen/GI:Soft, Mild tender, No guarding or rigidity, Bowel sounds present Extremities/Musculoskelatal:normal inspection, no edema Neurologic/Psych:AAOX3, grossly no focal neurological deficits Skin: normal color, warm Results & Data Vital Signs (Past 12 Hours) Vital Signs Temp Pulse Resp BP Pulse Ox 05/10/19 13:14 76 16 106/64 94 05/10/19 13:01 77 99/64 L 96 05/10/19 12:51 93 H 16 104/70 96 05/10/19 11:43 36.8 C 67 18 120/72 94 05/10/19 07:59 36.9 C 74 16 146/82 H 96 Laboratory Results Short CBC 05/10/19 Range/Units 06:10 WBC 14.02 H (4.8-10.8) K/uL Hgb 13.0 (12.0-16.0) g/dL Hct 38.3 (37-47) % Plt Count 397 (130-400) K/uL BMP 05/10/19 06:10 Sodium 135 L Potassium 3.8 Chloride 99 Carbon Dioxide 27 BUN 11 Creatinine 0.96 Glucose 137 H Calcium 8.6
--- NOTE | 2019-05-10 14:50 | Progress Note ---
Date of Service May 10, 2019 Subjective EGD showed gastritis. Plan: PO PPI. Follow up as OP. Inform PCP to follow up on Lymphadenopathy. i will see her in the office in 6-8 weeks. Recall GI if needed. Results & Data Vital Signs (Past 12 Hours) Vital Signs Temp Pulse Resp BP Pulse Ox 05/10/19 13:14 76 16 106/64 94 05/10/19 13:01 77 99/64 L 96 05/10/19 12:51 93 H 16 104/70 96 05/10/19 11:43 36.8 C 67 18 120/72 94 05/10/19 07:59 36.9 C 74 16 146/82 H 96
--- NOTE | 2019-05-10 15:34 | Discharge Summary ---
Date of Service May 10, 2019 Admission HPI Per Admitting Provider CHIEF COMPLAINT: Nausea, vomiting and epigastric abdominal pain. HISTORY OF PRESENT ILLNESS: This is a 68-year-old female with past medical history significant for diabetes type 2, hypothyroidism, hyperlipidemia, hypertension, chronic bilateral low back pain, presents with nausea, vomiting and epigastric abdominal pain since last 4-5 days. The patient speaks English, so all information has got from [place] [facility]. Early when the ER physician was examined, her son was there, but her son left. The patient since last 4 or 5 days, she is having several episodes of vomiting and also having epigastric pain. She attributes it to the recent increase in her diabetes medication. She was taking 1 tablet twice daily, now they increased to 2 tablets twice daily. She is also on antibiotic for sinus/URI infection but she thinks her symptoms from diabetic medication. She is not able to keep anything down. She is vomiting whatever she eats. Initially, she thought there could have been small amount of blood in the initial episode, but right now there is no blood in the vomitus. Bowels are moving fine. No black stools or blood in the stools. Pain is in the epigastric region. When she came in, it was 8/10 in severity, but after giving medication in the ER, now pain is much improved. She seems comfortable and hemodynamically stable. A couple of weeks ago, she had cold symptoms with runny nose, sore throat and lot of cough and also left eye redness. She was treated with antibiotics and her symptoms almost gone except she still has some cough, though it is not as bad as before still coughing some yellowish phlegm. Denies any chest pain currently, no shortness of breath currently. Ambulates okay for short distances, has had bilateral knee pains. No blurred visions. She has headaches on and off. Admission Exam Per Admitting Provider PHYSICAL EXAMINATION: GENERAL: The patient is alert and awake, not in acute distress. VITAL SIGNS: Temperature 36.7, pulse 63, respiratory rate 16, blood pressure 145/77, oxygen 94% room air. HEENT: No pallor, no icterus. Pupils equal, round, and reactive to light. Oral mucosa dry. NECK: No JVD, no neck masses, no carotid bruit. CARDIOVASCULAR: S1, S2 heard, regular rate and rhythm, no murmur, no gallop. RESPIRATORY SYSTEM: Normal AP diameter. No accessory muscle use. No wheezing, no crackles. ABDOMEN: Epigastric tenderness present, no guarding, no rigidity. No distention, no rebound tenderness. CENTRAL NERVOUS SYSTEM: Alert and awake. Obeys simple commands. Moves extremities. EXTREMITIES: No lower extremity edema present, no erythema seen. Principal Diagnosis Gastritis Lymphadenopathy Hyponatremia Discharge Data Allergies Allergy/AdvReac Type Severity Reaction Status Date / Time No Known Allergies Allergy Unverified 05/08/19 23:26 Consultations 05/09/19 01:21 ED Decision to Admit Stat 05/09/19 13:55 Consult Gastroenterology Routine Procedures Performed Operation Date: 05/10/19 09:00 Actual Procedures p EGD Biopsy Cytology - Sanjay Rod MD --CT ABD:Retroperitoneal lymphadenopathy. This raises concern for an underlying lymphoproliferative disease or metastatic disease. A systemic reactive or inflammatory etiology is also possible. This necessitates follow-up. PET/CT may better demonstrate which of the lymph nodes are most suspicious. Allowing for noncontrast technique, no acute intra-abdominal pathology. Jejunal diverticulum. No convincing evidence of diverticulitis at this time. Possible right renal angiomyolipoma or a prominent junctional parenchymal defect. --EGD: Hiatal hernia, normal esophagus, gastritis, normal duodenal bulb and second portion of duodenum. Ordered Studies 05/08/19 21:48 US gallbladder Stat 05/08/19 23:23 CT abd pelvis wo con [facility] Course (1) Epigastric pain: Patient presented with abdominal pain, nausea, vomiting.---Likely due to Gastritis Unclear etiology. DD: ?Medication induced (NSAIDs)--Meloxicam, Ibuprofen; recently increased on Metformin, sitagliptin; Gastroparesis --CT ABD:Retroperitoneal lymphadenopathy. This raises concern for an underlying lymphoproliferative disease or metastatic disease. A systemic reactive or inflammatory etiology is also possible. This necessitates follow-up. PET/CT may better demonstrate which of the lymph nodes are most suspicious. Allowing for noncontrast technique, no acute intra-abdominal pathology. Jejunal diverticulum. No convincing evidence of diverticulitis at this time. Possible right renal angiomyolipoma or a prominent junctional parenchymal defect. --EGD: Hiatal hernia, normal esophagus, gastritis, normal duodenal bulb and second portion of duodenum. --Discontinue NSAIDs --Appreciate GI Input --Advance diet as tolerated --Continue Pepcid>>> transition to PPI --Needs to continue PPI for 3 months --Biopsy results pending --Needs follow-up with GI in 6 to 8 weeks (2) Cough: Recently completed amoxicillin course CXR: Interstitial infiltrate left base. Treated for Azithromycin, IV ceftriaxone for possible pneumonia Lung bases on CT of abdomen / pelvis demonstrated minimal dependent changes, likely atelectatic. Pneumonia unlikely Normal procalcitonin, lactate levels Elevated WBC count likely due to CLL Discontinue antibiotics (3) Lymphadenopathy: Retroperitoneal adenopathy noted on CT of abdomen + pelvis. Largest nodes measured 11 mm. No systemic symptoms Peripheral smear with history of atypical lymphocytosis suspicious for CLL. No blast or schistocytes seen. Flow Cytometry pending Discussed with family Needs PET scan, oncology evaluation as outpatient. (4) Hyponatremia: Serum sodium 128 > 131 > 135 Likely due to HCTZ and vomiting +/- SIADH. HCTZ held for now Monitor sodium levels (5) Hypomagnesemia: Resolved Monitor (6) HTN (hypertension): BP relatively low Diuretics held Continue irbesartan with holding parameters monitor (7) Diabetes mellitus type 2, controlled: Hold PO meds Recently was increased on metformin and sitagliptin Hgb A1C: 7.8. Continue Lantus / NovoLog per protocol. Monitor BGs Plan to decrease metformin to 500 mg twice daily upon discharge (8) DVT prophylaxis: SCDs for now (9) Discharge planning issues: Expect to discharge home when stable Internal Medicine follow-up with Dr. Yolis Loja. Total Time Total Time Spent Total Time Spent (In Minutes): 39 minutes Total Time Includes: Examination of the Patient, Discharge Planning, Medication Reconciliation, Communication With Other Providers and Other Discharge Plan Discharge Items Patient Disposition: Home - Self-Care Reason For Visit: NAUSEA / VOMITING / EPIGASTRIC PAIN Discharge Diagnosis: Gastritis Lymphadenopathy Hyponatremia Activity: Resume your previous activity Exercise/Sports: Gradually increase as tolerated Non-emergency contact: Primary Care Provider, Ship Surveyor and Oncologist Call non-emergency contact if: you have any medication questions, your symptoms worsen, your pain is not controlled, your pain is worsening, your pain is unusual for you, your pain is concerning for you and you have a fever Follow-up/Referrals: Yolis Loja MD [Primary Care Provider] - Diet: Carb Consistent or DM2 Addtl Attending Provider Instructions: Follow-up with your primary care physician Dr. Theodore Cleary on May 15, 2019 at 10:45 AM Follow-up with your customer support advisor Sanjay Jimenez in 6-8 weeks Follow-up with your oncologist for further evaluation of your lymphadenopathy as advised Avoid any NSAID use--meloxicam, ibuprofen etc Medication changes Start taking Protonix 40 mg daily for 3 months Your Metformin is decreased to 500 mg twice a day secondary to nausea, vomiting Discuss with your Physician for further medications adjustment for your diabetes as advised Your Meloxicam is discontinued Hold aspirin for 3 days and can resume if no recurrence of bleeding Hold HCTZ for 3 days and can resume Seek immediate medical attention if your symptoms reoccur or worsen Pending Studies at Discharge: Yes Studies:: Flow cytometry study is pending at the time of discharge. Follow-up with your physician for results Stand-Alone Forms: My [facility], Smoking Cessation Medications and DC Order Prescriptions: New pantoprazole [Protonix] 40 mg tablet,delayed release (DR/EC) 40 mg PO DAILY Qty: 30 RF: 2 Continued hydrochlorothiazide 12.5 mg capsule 12.5 mg PO DAILY RF: 0 Basaglar KwikPen U-100 Insulin 100 unit/mL (3 mL) insulin pen 40 unit subcut QPM RF: 0 atorvastatin 40 mg tablet 40 mg PO DAILY RF: 0 metoprolol succinate 25 mg tablet extended release 24 hr 25 mg PO DAILY RF: 0 glimepiride 4 mg tablet 4 mg PO BID RF: 0 Januvia 100 mg tablet 100 mg PO DAILY RF: 0 levothyroxine 100 mcg tablet 100 mcg PO DAILY RF: 0 levothyroxine 50 mcg tablet 50 mcg PO .UD RF: 0 levothyroxine 50 mcg tablet 25 mcg PO UD RF: 0 irbesartan 300 mg tablet 300 mg PO DAILY RF: 0 Aspirin Low Dose 81 mg 81 mg PO DAILY RF: 0 Changed metformin 500 mg tablet extended release 24 hr 500 mg PO BID Qty: 0 RF: 0 Discontinued meloxicam 7.5 mg Tablet 7.5 mg PO DAILY RF: 0 Discharge Orders: Discharge Order (Routine); Ordered 05/10/19 Ordered By: Lazarus Blum Admission Data Admit Date/Time: 05/09/19 02:07 Attending Provider: Lazarus Blum Admit Provider: Troy Bowling Primary Care Provider: Yolis Loja Other Providers: Troy Bowling ; Marty Kemp ; Winifred Forman ; Radha Major ; Julio Cesar Hitchcock ; Irma Rice ; Eyad Duckworth ; Caro Schafer ; Mckinley Nunez ; Kwame Miller ; Aimee Shah ; Kendy Olmstead ; Corinna Zelaya ; Adelaide Mary ; Sanjay Rod Other Interventions: Discharge Summary Assessment (RN) Last Done: 05/10/19 16:23 DC Date/Time DO NOT enter until pt leaves facility: 05/10/19 17:43
--- NOTE | 2019-05-10 16:20 | Anesthesiology Progress Note ---
Date of Service May 10, 2019 Anesthesia Post Procedure Vital Signs Vital Signs: Temp Pulse Pulse Resp BP BP Pulse Ox 05/10/19 15:34 36.4 C L 69 18 112/71 92 05/10/19 13:14 76 16 106/64 94 05/10/19 13:01 77 99/64 L 96 05/10/19 12:51 93 H 16 104/70 96 05/10/19 11:43 36.8 C 67 18 120/72 94 05/10/19 07:59 36.9 C 74 16 146/82 H 96 05/09/19 23:18 36.5 C 75 16 124/71 97 05/09/19 19:48 36.5 C 64 16 124/77 95 Pain Intensity Abdomen: Pain Intensity: 5 Transfer of Care Handoff Completed per policy Notes Mental Status: alert / awake / arousable Patient Amnestic to Procedure: Yes Nausea / Vomiting: adequately controlled Pain: adequately controlled Airway Patency, RR, SpO2: stable & adequate BP & HR: stable & adequate Hydration State: stable & adequate Anesthetic Complications: no major complications apparent and Pt Satisfied with anesthetic care
[2019-05-10] MEDS ORDERED: DICYCLOMINE HCL 10 MG CAP PO SCH (16:30)
[2019-05-10] MEDS ORDERED: PANTOprazole 40 MG TAB PO SCH (21:00)
[2019-05-14] MEDS ORDERED: LEVOTHYROXINE SODIUM 150 MCG TABLET PO SCH (06:30)
--- NOTE | 2019-05-15 12:54 | Coding Query ---
CODING QUERY To promote full compliance with coding requirements relating to patient care, provider participation is requested in all cases of application security developer uncertainty. Please assist us with the question(s) below: Coding Question(s): There is documentation on the Discharge Summary of, " Treated for Azithromycin, IV ceftriaxone for possible pneumonia Lung bases on CT of abdomen / pelvis demonstrated minimal dependent changes, likely atelectatic. Pneumonia unlikely". Please clarify below, in your clinical opinion, regarding the Pneumonia. ( ) Possible Pneumonia ( X ) Pneumonia is Ruled-Out ( ) Other: Please Specify Physician's Response(s): Thank you Koki Vitale Principal Diagnosis: "that condition established after study, to be chiefly responsible for occasioning the admission of the patient to the hospital for care." Co-Existing Principal Diagnosis: "when two or more diagnoses equally meet the criteria for principal diagnosis as determined by the circumstances of admission, diagnostic work up, and/or therapy provided, and the Alphabetic Index, Tabular List, or another coding guideline does not provide sequencing direction, any one of the diagnoses may be sequenced first." "When the physician has documented what appears to be a current diagnosis in the body of the record, but has not included the diagnosis in the final diagnostic statement, the physician should be asked whether the diagnosis should be added." ([facility] 2 QTR90. p3-4) ABDIRAHMAN
== END 2019-05-10 17:43 | disposition home or self-care (01) | DRG 392 ==
LOC: 2N 20:40 → ED 20:40 → SUATTDRO 05-09 02:07 → OBSVTOIN 05-09 02:07 → 2N 05-09 02:43

== ENCOUNTER 2022-04-01 12:55 | Inpatient (IN) ==
[2022-04-01 16:11] LABS: Hematocrit (blood only) 37.5 % (34.1-44.9); Hemoglobin 12.3 g/dl (12.0-16.0); Mean Corpuscular Hgb Conc 32.8 g/dL (32.0-36.0); Mean Corpuscular Volume 82.4 fL (80.0-100.0); Mean Platelet Volume 10.2 fL (9.4-12.3); Platelet Count 358 K/uL (130-400); RDW Coefficient of Variation 15.7 % (11.5-14.5); RDW Standard Deviation 47.1 fL (36.4-46.3); Red Blood Count 4.55 M/uL (3.93-5.22); White Blood Count 23.18 K/ul (4.8-10.8)
[2022-04-01 16:31] LABS: Alanine Aminotransferase 9 U/L (7-52); Albumin Globulin Ratio 0.7 (0.9-2); Albumin Level 3.5 gm/dl (3.4-5.0); Alkaline Phosphatase 42 U/L (34-104); Anion Gap 10 (3-11); Aspartate Aminotransferase 13 U/L (13-39); BUN Creatinine Ratio 13.2 (10-20); Bilirubin,Total 0.3 mg/dl (0.2-1.0); Blood Urea Nitrogen 12 mg/dl (6-23); Calcium 8.1 mg/dl (8.5-10.1); Carbon Dioxide 23 mmol/L (21-32); Chloride 95 mmol/L (98-107); Est GFR (African American) 73.1 ml/min; Globulin 4.9 gm/dl (2.5-4.0); Glucose 217 mg/dl (70-99(Fasting)); Sodium 128 mmol/L (136-145); Total Protein 8.4 gm/dl (6.0-8.3)
[2022-04-01] MEDS ORDERED: PIPERACILLIN/TAZOBACTAM 4.5 GM/120 ML BAG IV ONE (16:46)
[2022-04-01] MEDS ORDERED: MoRPHine SULFATE 4 MG/ML 1 ML CARP\\VIAL IV STA (16:46)
[2022-04-01] MEDS ORDERED: SODIUM CHLORIDE 0.9% 1000ML 1,000 ML IV ONE (16:46)
[2022-04-01] MEDS ORDERED: ONDANSETRON INJ 2 MG/ML 2 ML VIAL IV STA (16:46)
[2022-04-01] MEDS ORDERED: ACETAMINOPHEN 325 MG TAB PO STA (16:50)
--- NOTE | 2022-04-01 16:55 | Emergency Department Note ---
Impression & Plan Sepsis, Leukocytosis, Cellulitis of face, Acute hyponatremia, Febrile ED Provider Note NAME: LESLI LINK AGE: 71 SEX: F : 1950 ARRIVES VIA: Walk-In INFORMANT: Patient ED PROVIDER(S): Chidi Cool DO CHIEF COMPLAINT: facial swelling and pain HPI: Patient is a 71-year-old female who wears dentures that presents to the ER for left lower jaw swelling. This started about 4 to 5 days ago. She had this once several months ago and resolved with IV antibiotics. She admits to feeling hot and cold and shaking chills. Denies any headache. It is painful when eating or drinking. Currently an 8 out of 10. Denies any nausea or vomiting. No dysuria, urgency, or frequency. No trouble swallowing. No other exacerbating or remitting factors. She believes that this generally comes from the dentures and they believe they generally do not fit well. ROS: See above HPI for pertinent positives & negatives. A total of 10 systems reviewed and were otherwise negative. PAST MEDICAL HISTORY:See Below PAST SURGICAL HISTORY:See Below FAMILY HISTORY:See Below SOCIAL HISTORY:See Below HOME MEDICATIONS:See Below ALLERGIES:See Below VITALS:See Below PHYSICAL EXAMINATION: GENERAL: Sitting up in bed, slightly ill-appearing, disheveled, mild distress EYE EXAM: normal conjunctiva. PERRL and EOM's grossly intact. OROPHARYNX: White exudate over the left lower cheek internally. Mucous membranes are moist. Dentures were removed both upper and lower. FACE: Swelling left lower mid mandible mandible without any overlying erythema or induration NECK: supple, no nuchal rigidity, no adenopathy, non-tender LUNGS: Clear to auscultation. Normal chest wall mechanics HEART: no murmurs, S1 normal and S2 normal ABDOMEN: abdomen soft, non-tender, normo-active bowel sounds, no masses, no rebound or guarding. UPPER EXTREMITIES: upper extremities are grossly normal. LOWER EXTREMITIES: No pitting edema. NEURO EXAM: Normal sensorium, cranial nerves II-XII grossly intact, normal speech, no gross weakness of arms, no gross weakness of legs. MEDICAL DECISION MAKING: Patient is a 71-year-old female who presents the ER for the boasting complaint. Upon presentation she is found to be tachycardic and borderline febrile. Labs show leukocytosis 23,000. No significant anemia. BMP with mild hyponatremia 128. Glucose slightly elevated at 205. UA was contaminated. COVID-negative. CT of the face shows cellulitis with no clear abscess. Was a question of a lymphoproliferative disease on CT. She was given IV Zosyn. She is updated bedside. She was given IV morphine as well. She was discussed with hospitalist admitted for further work-up. She was given IV fluids as well. Triage Nursing notes reviewed. Limited review of prior medical records performed Vital Signs: reviewed and remarkable for tachy and febrile Differential diagnosis: Differential diagnoses includes but is not limited to dental fracture, dental carries, and dental abscess. ER treatment provided: See below Diagnostics interpreted by me: ECG: none Cardiac Monitoring: An order was placed for continuous cardiac monitoring. The monitor shows a rate of 101 with sinus rhythm. Laboratory studies: As stated above and show below. Imaging studies: CT of the face as described above Consultation(s): Discussed with [facility]ist for further evaluation Procedures: none Critical Care: None Past Med/Surg History Medical History (Updated 04/01/22 @ 21:32 by Chidi Cool DO) Arthritis Chronic lymphocytic leukemia CKD (chronic kidney disease), stage III DM (diabetes mellitus) Controlled and stable GERD (gastroesophageal reflux disease) High cholesterol History of chronic lymphocytic leukemia Per records HTN (hypertension) Hypothyroid Secondary to thyroidectomy - no thyroid cancer per patient Surgical History History of colonoscopy History of esophagogastroduodenoscopy (EGD) History of tubal ligation Hx of thyroidectomy Family History Sister Breast cancer Social History Smoking Status: Never smoker Second Hand Exposure: No; Hx Alcohol Use: No Hx Substance Use: No Preferred Language: Bulgarian Communication Ability: Impaired Communication Tools: IPad Visual Impairment: No Limitations Floorperson Required: Yes Beliefs That Will Affect Care: Yazdanism Current Living Situation: Family Other Information That Helps Us Care for You: No Feels Safe at Home: Yes Safety Concerns: Afraid for Self Assistive Devices: Denture - Upper and Denture - Lower Allergies Allergies Allergy/AdvReac Type Severity Reaction Status Date / Time No Known Allergies Allergy Verified 04/01/22 18:25 Home Meds Home Medications Medication Instructions Recorded Confirmed atorvastatin 40 mg tablet 40 mg PO QAM 05/08/19 04/01/22 levothyroxine 100 mcg tablet 100 mcg PO DAILYBB 05/08/19 04/01/22 metoprolol succinate 25 mg 25 mg PO QAM 05/08/19 04/01/22 tablet,extended release 24 hr pantoprazole 40 mg tablet,delayed 40 mg PO QAM 11/30/19 04/01/22 release (Protonix) aspirin 81 mg tablet,delayed 81 mg PO DAILY 07/26/20 04/01/22 release (Shira Low Dose Aspirin) insulin glargine 100 unit/mL (3 32 unit subcut PM 07/26/20 04/01/22 mL) subcutaneous pen (Lantus Solostar U-100 Insulin) irbesartan 150 mg tablet 150 mg PO QAM 07/26/20 04/01/22 levothyroxine 50 mcg tablet 25 - 50 mcg PO UD 07/26/20 04/01/22 linagliptin 5 mg tablet (Tradjenta) 5 mg PO QAM 07/26/20 04/01/22 metformin 500 mg tablet,extended 1,000 mg PO BIDM 07/26/20 04/01/22 release 24 hr albuterol sulfate 90 mcg/actuation 2 puff inhalation QID PRN cough or 04/01/22 04/01/22 aerosol inhaler (Ventolin HFA) wheezing calcium acetate-magnesium carb 450 1 tab PO DAILY 04/01/22 04/01/22 mg-200 mg tablet cholecalciferol (vitamin D3) 125 125 mcg PO DAILY 04/01/22 04/01/22 mcg (5,000 unit) tablet (Vitamin D3) cyanocobalamin (vitamin B-12) 1,000 mcg IM .EVERY 3 MONTHS 04/01/22 04/01/22 1,000 mcg/mL injection solution diphenhydramine HCl 12.5 mg/5 mL 25 mg PO Q12 PRN allergy or itch 04/01/22 04/01/22 oral elixir fluticasone propionate 50 2 spray intranasal DAILY PRN as 04/01/22 04/01/22 mcg/actuation nasal directed spray,suspension [id number] C-Mn 500 1 cap PO DAILY 04/01/22 04/01/22 mg-400 mg capsule guaifenesin 600 mg tablet, 600 mg PO BID 04/01/22 04/01/22 extended release 12 hr ketotifen fumarate 0.025 % (0.035 1 drp OPL [facility] 04/01/22 04/01/22 %) eye drops loratadine 10 mg tablet 10 mg PO QAM 04/01/22 04/01/22 montelukast 10 mg tablet 10 mg PO HS 04/01/22 04/01/22 Results & Data (ED) Vital Signs Vital Signs - 24 hr 04/01/22 13:23 04/01/22 17:00 04/01/22 17:42 Temperature 37.8 C H 37.4 C Temperature Source Oral Oral Pulse Rate 106 H Pulse Rate [Finger] 79 Respiratory Rate 16 26 H Respiratory Effort / Characteristics Non-Labored Spontaneous Respiratory Depth Normal Respiratory Pattern Regular Blood Pressure 132/77 Blood Pressure [Left Arm] 139/81 Blood Pressure Mean 95 Blood Pressure Mean [Left Arm] 100 Pulse Oximetry 93 92 Oxygen Delivery Method Room Air Room Air Sepsis Recent Fever Within 48 Hours No Sepsis New/Unexplained Change in Mental Status No Sepsis Action Taken by Nursing No Action Required 04/01/22 18:01 04/01/22 18:30 Temperature Temperature Source Pulse Rate 73 67 Pulse Rate [Finger] Respiratory Rate 20 21 Respiratory Effort / Characteristics Respiratory Depth Respiratory Pattern Blood Pressure Blood Pressure [Left Arm] Blood Pressure Mean Blood Pressure Mean [Left Arm] Pulse Oximetry Oxygen Delivery Method Sepsis Recent Fever Within 48 Hours Sepsis New/Unexplained Change in Mental Status Sepsis Action Taken by Nursing Laboratory Data Result diagrams: 04/01/22 15:35 04/01/22 15:35 Lab Results 04/01/22 04/01/22 Range/Units 15:35 15:35 WBC 23.18 H (4.8-10.8) K/ul RBC 4.55 (3.93-5.22) M/uL Hgb 12.3 (12.0-16.0) g/dl Hct 37.5 (34.1-44.9) % MCV 82.4 (80.0-100.0) fL MCH 27.0 (25.0-34.0) pg MCHC 32.8 (32.0-36.0) g/dL RDW Std Deviation 47.1 H (36.4-46.3) fL RDW Coeff of Margaret 15.7 H (11.5-14.5) % Plt Count 358 (130-400) K/uL MPV 10.2 (9.4-12.3) fL Immature Gran % (Auto) 0.5 % Neut % (Auto) 34.1 % Lymph % (Auto) 58.1 % Ray % (Auto) 6.4 % Eos % (Auto) 0.4 % Baso % (Auto) 0.5 % Neut # (Auto) 7.90 H (1.4-6.5) K/uL Lymph # (Auto) 13.47 H (1.2-3.4) K/uL Ray # (Auto) 1.49 H (0.24-0.82) K/uL Eos # (Auto) 0.09 (0-0.50) K/uL Baso # (Auto) 0.12 (0-0.2) K/uL Immature Gran # (Auto) 0.11 H (0.00-0.02) K/uL Sodium 128 L (136-145) mmol/L Potassium 4.0 (3.5-5.1) mmol/L Chloride 95 L (98-107) mmol/L Carbon Dioxide 23 (21-32) mmol/L Anion Gap 10 (3-11) BUN 12 (6-23) mg/dl Creatinine 0.91 (0.6-1.2) mg/dl Est Cr Clr Drug Dosing Not Reportable Est GFR ( Amer) 73.1 ml/min Est GFR (Non-Af Amer) 63.0 ml/min BUN/Creatinine Ratio 13.2 (10-20) Glucose 217 H (70-99(Fasting)) mg/dl Calcium 8.1 L (8.5-10.1) mg/dl Total Bilirubin 0.3 (0.2-1.0) mg/dl AST 13 (13-39) U/L ALT 9 (7-52) U/L Alkaline Phosphatase 42 (34-104) U/L Total Protein 8.4 H (6.0-8.3) gm/dl Albumin 3.5 (3.4-5.0) gm/dl Globulin 4.9 H (2.5-4.0) gm/dl Albumin/Globulin Ratio 0.7 L (0.9-2) Administered Medications Guaifenesin (Guaifenesin 600 Mg Tabcr) 600 mg PO BID TAYE Stop: 05/01/22 20:59 Last Admin: 04/01/22 21:27 Dose: 600 mg Documented By: RAHAT Sodium Chloride (Nss 1000ml) 1,000 mls @ 80 mls/hr IV .[id number] TAYE Stop: 04/02/22 09:06 Last Admin: 04/01/22 21:25 Dose: 80 mls/hr Documented By: RAHAT Montelukast Sodium (Montelukast Sodium 10 Mg Tablet) 10 mg PO HS TAYE Stop: 05/01/22 20:59 Last Admin: 04/01/22 21:31 Dose: 10 mg Documented By: RAHAT Nystatin (Nystatin Susp 500,000 U/5 Ml Udc) 5 ml PO QID TAYE Stop: 04/11/22 20:59 Last Admin: 04/01/22 21:28 Dose: 5 ml Documented By: RAHAT Discontinued Medications Acetaminophen (Acetaminophen 325 Mg Tab) 650 mg PO NOW STA Stop: 04/01/22 16:51 Last Admin: 04/01/22 17:05 Dose: 650 mg Documented By: AIDAN Piperacillin Sod/Tazobactam Sod (Zosyn) 4.5 gm in 120 mls @ 240 mls/hr IV NOW ONE Stop: 04/01/22 17:15 Last Infusion: 04/01/22 17:55 Dose: 0 mls/hr Documented By: Admin: 04/01/22 17:05 Dose: 240 mls/hr Documented By: AIDAN Sodium Chloride (Nss 1000ml) 1,000 mls @ 999 mls/hr IV .Q1H1M ONE Stop: 04/01/22 17:46 Last Infusion: 04/01/22 19:08 Dose: 0 mls/hr Documented By: Admin: 04/01/22 17:00 Dose: 999 mls/hr Documented By: AIDAN Ioversol (Ioversol 350 Mg 100ml Prefilled Syringe) 91 ml IV ONCE ONE Stop: 04/01/22 17:26 Last Admin: 04/01/22 17:26 Dose: 91 ml Documented By: BRANDAN Morphine Sulfate (Morphine Sulfate 4 Mg/Ml 1 Ml Carp\Vial) 4 mg IV NOW STA Stop: 04/01/22 16:47 Last Admin: 04/01/22 17:02 Dose: 4 mg Documented By: AM Ondansetron HCl (Ondansetron Inj 2 Mg/Ml 2 Ml Vial) 4 mg IV NOW STA Stop: 04/01/22 16:47 Last Admin: 04/01/22 17:00 Dose: 4 mg Documented By: AM Imaging Data Radiologist's Impression: Face CT 04/01/22 16:47 CT SCAN OF THE FACIAL BONES WITH IV CONTRAST CLINICAL HISTORY: Left lower jaw swelling. COMPARISON STUDY: CT of the neck dated 07/26/2020. TECHNIQUE: High-resolution CT scan of the facial bones is performed following the IV administration of 91 cc of Optiray 300. Images are reviewed in the axial, sagittal, and coronal planes. IV contrast was administered without complication. A dose lowering technique was utilized adhering to the principles of ALARA. CT DOSE: 196.55 mGy.cm FINDINGS: The skeletal structures are osteopenic. There is no evidence of facial bone fracture. The bony orbits are intact and the orbital contents are within normal limits. The zygomatic arches, nasal bones, and pterygoid plates are preserved. The maxilla and mandible are intact. There are no layering blood products within the paranasal sinuses. There is subtotal opacification of the left frontal sinus and the left anterior ethmoid sinuses. Moderate mucosal thickening seen in the maxillary antra. The sphenoid sinuses are under pneumatized. There are trace mastoid effusions. The visualized calvarium and upper cervical spine are maintained. Partially imaged brain parenchyma is within normal limits noting age-related involutional change. The patient is edentulous. There is bulky cervical lymphadenopathy. Conglomerate adenopathy is seen throughout the neck bilaterally. A ladarius aggregate in the left lower neck on image #26 measures approximately 3 x 2.5 cm there is mild surrounding infiltration. The left cervical chain node on image #2 origin 34 measures 2.3 x 2.2 cm. Intraparotid lymph nodes measure up to 1.1 cm. There is infiltration of the left facial soft tissues with overlying dermal thickening. No organized flui d collection is seen to suggest abscess. There is infiltration of the left parapharyngeal fat. The airway appears patent. The tonsils are edematous. The carotid arteries and jugular veins appear patent. IMPRESSION: 1. No acute facial bone abnormality is identified. 2. There is bulky bilateral cervical lymphadenopathy which is similar to the 07/26/[address] The appearance favors a lymphoproliferative disorder. Correl ate with the patient's oncological history. 3. There is infiltration of the left facial soft tissues suggesting cellulitis. Additionally, there is infiltration around left cervical lymph nodes which may represent lymphadenitis. Clinical correlation will be required, and these findings are similar to the 07/26/[address] 4. No organized fluid collection is seen to indicate abscess. 5. There is infiltration of the left parapharyngeal fat, as well as edema of the tonsils. Correlate clinically for evidence of a tonsillitis/pharyngitis. 6. The patient is edentulous. 7. Paranasal sinus disease as above. ACT 112: Negative or not required by law. Electronically signed by: Skinny Villavicencio M.D. 04/01/2022 5:37 PM Discharge Plan Visit Data Chief Complaint: Referred by Doctor Stated Complaint: [facility] sent, infection mouth and urine, fever, ED Provider: Chidi Cool Discharge Problem: Sepsis, Leukocytosis, Cellulitis of face, Acute hyponatremia, Febrile Patient Disposition: Admitted As Inpatient Discharge Instructions Interventions: ED Discharge Assessment Last Done: 04/01/22 20:20
[2022-04-01 17:02] LABS: Basophils # (auto) 0.12 K/uL (0-0.2); Basophils % (auto) 0.5 %; Eosinophils # (auto) 0.09 K/uL (0-0.50); Eosinophils % (auto) 0.4 %; Immature Granulocytes # (auto) 0.11 K/uL (0.00-0.02); Immature Granulocytes % (auto) 0.5 %; Lymphocytes # (auto) 13.47 K/uL (1.2-3.4); Lymphocytes % (auto) 58.1 %; Monocytes # (auto) 1.49 K/uL (0.24-0.82); Monocytes % (auto) 6.4 %; Neutrophils % (auto) 34.1 %
[2022-04-01] MEDS ORDERED: IOVERSOL 350 MG 100mL Prefilled Syringe IV ONE (17:25)
--- NOTE | 2022-04-01 17:39 | CT Scan Report ---
CT SCAN OF THE FACIAL BONES WITH IV CONTRAST CLINICAL HISTORY: Left lower jaw swelling. COMPARISON STUDY: CT of the neck dated 07/26/2020. TECHNIQUE: High-resolution CT scan of the facial bones is performed following the IV administration of 91 cc of Optiray 300. Images are reviewed in the axial, sagittal, and coronal planes. IV contrast was administered without complication. A dose lowering technique was utilized adhering to the princi ples of ALARA. CT DOSE: 196.55 mGy.cm FINDINGS: The skeletal structures are osteopenic. There is no evidence of facial bone fracture. The b mika orbits are intact and the orbital contents are within normal limits. The zygomatic arches, nasal bones, and pterygoid plates are preserved. The maxilla and mandible are intact. There are no layering blood products within the paranasal sinuses. There is subtotal opacification of the left frontal sin us and the left anterior ethmoid sinuses. Moderate mucosal thickening seen in the maxillary antra. Th e sphenoid sinuses are under pneumatized. There are trace mastoid effusions. The visualized calvarium and upper cervical spine are maintained. Partially imaged brain parenchyma is within normal limits n oting age-related involutional change. The patient is edentulous. There is bulky cervical lymphadenop athy. Conglomerate adenopathy is seen throughout the neck bilaterally. A ladarius aggregate in the left lower neck on image #26 measures approximately 3 x 2.5 cm there is mild surrounding infiltration. The left cervical chain node on image #2 origin 34 measures 2.3 x 2.2 cm. Intraparotid lymph nodes measu re up to 1.1 cm. There is infiltration of the left facial soft tissues with overlying dermal thickeni ng. No organized fluid collection is seen to suggest abscess. There is infiltration of the left parap haryngeal fat. The airway appears patent. The tonsils are edematous. The carotid arteries and jugular veins appear patent. IMPRESSION: 1. No acute facial bone abnormality is identified. 2. There is bulky bilateral cervical lymphadenopathy which is similar to the 07/26/[address] The a ppearance favors a lymphoproliferative disorder. Correlate with the patient's oncological history. 3. There is infiltration of the left facial soft tissues suggesting cellulitis. Additionally, there i s infiltration around left cervical lymph nodes which may represent lymphadenitis. Clinical correlati on will be required, and these findings are similar to the 07/26/[address] 4. No organized fluid collection is seen to indicate abscess. 5. There is infiltration of the left parapharyngeal fat, as well as edema of the tonsils. Correlate c linically for evidence of a tonsillitis/pharyngitis. 6. The patient is edentulous. 7. Paranasal sinus disease as above. ACT 112: Negative or not required by law. Electronically signed by: Skinny Villavicencio M.D. 04/01/2022 5:37 PM
--- NOTE | 2022-04-01 18:28 | History & Physical Report ---
Date of Service April 01, 2022 Assessment & Plan (1) Facial cellulitis: Plan: Patient is 71 y/o F with PMH HTN, HLD, DM II, chronic lymphocytic leukemia/small lymphocytic lymphoma, CKD III, hypothyroidism, GERD presented to ER with c/o facial swelling x 1 week. History obtained from patient through the willow machine tender and through outpatient chart review. Seen outpatient clinic today and referred to ER secondary to fever of 38.4C. Treated for dental/facial infection while in [place] in 01/23 with IV and oral antibiotics with improvement. In ER T: 37.8C, P: 106, BP: 132/77, 93% on RA WBC: 23. (Baseline 28-35) In ER given 1L NSS, Zosyn Blood cultures pending and were obtained after initial antibiotics given in ER Continue Zosyn IVF Will start swish and swallow nystatin for suspected oral candidiasis Will need further outpatient follow up for assistance with proper fitting dentures CBC, BMP in am (2) Hyponatremia: Plan: Corrected Na of 130 for glucose of 217 Monitor (3) Recent urinary tract infection: Plan: 03/13/22 Urine culture positive for Beta Streptococcucs group B. Treated with amoxicillin Pt denies dysuria, hematuria, abdominal pain UA pending from ER (4) Diabetes mellitus type 2, controlled: Plan: A1c: 6.7 on 03/02/22 Hold oral meds Continue home Lantus Novolog sliding scale per protocol (5) HTN (hypertension): Plan: Continue irbesartan, metoprolol succinate (6) Chronic lymphocytic leukemia: Plan: Follows with Dr Bird (7) CKD (chronic kidney disease), stage III: Plan: Cr: 0.9. Baseline 0.9-1.0 Monitor renal functions, avoid nephrotoxic agents when possible (8) Hypothyroid: Plan: Continue levothyroxine (9) GERD (gastroesophageal reflux disease): Plan: Continue PPI DVT Prophylaxis Lovenox SQ Full Code as per discussion with pt and pt's son Follows with Dr Loja for routine care Pt was seen and care coordinated with Dr Olmos. See addendum History of Present Illness Chief Complaint: Fever Primary Care Provider: Yolis Loja MD Patient is 71 y/o F with PMH HTN, HLD, DM II, chronic lymphocytic leukemia/small lymphocytic lymphoma, CKD III, hypothyroidism, GERD presented to ER with c/o facial swelling x 1 week. History obtained from patient through the willow machine tender and through outpatient chart review. Patient speaks danish. Patient unaware if fever at home. Today feeling generalized weakness. Able to speak to her Son and he reports she has been having chronic weakness and has been having home PT twice weekly with improvement until today was feeling more weak. Seen outpatient clinic today and referred to ER secondary to fever of 38.4C. Patient reports left face and mouth inflamed for one week and having trouble eating secondary to discomfort. She states similar symptoms while in [place] with mouth inflamed and was treated with IV and oral antibiotics in January of 2022. Patient reports symptoms improved after the antibiotics until one week ago. Patient states dentures are ill fitting and cause pain as well as she feels this is causing the problem. She states had dentures made here in [employer] but didn't use because was not comfortable. Patient can't chew food well with her ill fitting dentures but is able to swallow foods and liquids without difficulty or choking. Denies sore throat or neck pain. She states did not have her medications today. Denies dysuria, hematuria, abdominal pain. Denies d iaphoresis, N/V/D/C, NEGRETE, dizziness, syncope, vision changes, CP, SOB, cough, otalgia, rhinorrhea, abdominal pain, paresthesias, extremity weakness, extremity edema, rashes. Outpatient chart reviewed and on 03/13/22 PCP visit for cough x 1 day and ongoing generalized weakness and was treated for UTI with amoxicillin and given Ventolin inhaler for suspected bronchitis. Urine culture positive for Beta Streptococcucs group B. Negative SARS-COV-2 NAAT at that time. Allergies Allergy/AdvReac Type Severity Reaction Status Date / Time No Known Allergies Allergy Verified 04/01/22 18:25 Home Medications Medication Instructions Recorded Confirmed Type atorvastatin 40 mg tablet 40 mg PO QAM 05/08/19 04/01/22 History levothyroxine 100 mcg tablet 100 mcg PO DAILYBB 05/08/19 04/01/22 History metoprolol succinate 25 mg 25 mg PO QAM 05/08/19 04/01/22 History tablet,extended release 24 hr pantoprazole 40 mg tablet,delayed 40 mg PO QAM 11/30/19 04/01/22 History release (Protonix) aspirin 81 mg tablet,delayed 81 mg PO DAILY 07/26/20 04/01/22 History release (Shira Low Dose Aspirin) insulin glargine 100 unit/mL (3 32 unit subcut PM 07/26/20 04/01/22 History mL) subcutaneous pen (Lantus Solostar U-100 Insulin) irbesartan 150 mg tablet 150 mg PO QAM 07/26/20 04/01/22 History levothyroxine 50 mcg tablet 25 - 50 mcg PO UD 07/26/20 04/01/22 History linagliptin 5 mg tablet (Tradjenta) 5 mg PO QAM 07/26/20 04/01/22 History metformin 500 mg tablet,extended 1,000 mg PO BIDM 07/26/20 04/01/22 History release 24 hr albuterol sulfate 90 mcg/actuation 2 puff inhalation QID PRN cough or 04/01/22 04/01/22 History aerosol inhaler (Ventolin HFA) wheezing calcium acetate-magnesium carb 450 1 tab PO DAILY 04/01/22 04/01/22 History mg-200 mg tablet cholecalciferol (vitamin D3) 125 125 mcg PO DAILY 04/01/22 04/01/22 History mcg (5,000 unit) tablet (Vitamin D3) cyanocobalamin (vitamin B-12) 1,000 mcg IM .EVERY 3 MONTHS 04/01/22 04/01/22 History 1,000 mcg/mL injection solution diphenhydramine HCl 12.5 mg/5 mL 25 mg PO Q12 PRN allergy or itch 04/01/22 04/01/22 History oral elixir fluticasone propionate 50 2 spray intranasal DAILY PRN as 04/01/22 04/01/22 History mcg/actuation nasal directed spray,suspension [id number] C-Mn 500 1 cap PO DAILY 04/01/22 04/01/22 History mg-400 mg capsule guaifenesin 600 mg tablet, 600 mg PO BID 04/01/22 04/01/22 History extended release 12 hr ketotifen fumarate 0.025 % (0.035 1 drp OPL [facility] 04/01/22 04/01/22 History %) eye drops loratadine 10 mg tablet 10 mg PO QAM 04/01/22 04/01/22 History montelukast 10 mg tablet 10 mg PO HS 04/01/22 04/01/22 History Past Med/Surg History Medical History (Updated 04/01/22 @ 21:32 by Chidi Cool DO) Arthritis Chronic lymphocytic leukemia CKD (chronic kidney disease), stage III DM (diabetes mellitus) Controlled and stable GERD (gastroesophageal reflux disease) High cholesterol History of chronic lymphocytic leukemia Per records HTN (hypertension) Hypothyroid Secondary to thyroidectomy - no thyroid cancer per patient Surgical History History of colonoscopy History of esophagogastroduodenoscopy (EGD) History of tubal ligation Hx of thyroidectomy Family History Sister Breast cancer Social History Smoking Status: Never smoker Second Hand Exposure: No; Hx Alcohol Use: No Hx Substance Use: No Preferred Language: Syriac Communication Ability: Impaired Communication Tools: Language Line Ndt Inspector, Facial Expression and Physical Gestures Visual Impairment: No Limitations Ndt Inspector Required: Yes Beliefs That Will Affect Care: Sikh Current Living Situation: Family Other Information That Helps Us Care for You: No Feels Safe at Home: Yes Safety Concerns: Afraid for Self Assistive Devices: Denture - Upper and Denture - Lower Review of Systems Review of Systems: All systems reviewed & are unremarkable except as noted in HPI & below Physical Exam Physical Exam: General: no distress, WDWN Head: normocephalic, atraumatic Eyes: PERRL, EOM's intact, conjunctiva non-injected, anicteric ENT: normal inspection external ears, nose, mucous membranes moist; +adentulous. left lower gingiva with erythema and edema with white plaques Neck: supple, trachea midline Lungs: clear, no respiratory distress, no wheezing/rhonchi/rales CV: RRR, no murmur, no pretibial edema Abd: normal BS, soft, non-tender Ext: no cyanosis, no calf tenderness Neuro: A&O x 3, no focal deficits noted, normal affect Skin: warm, dry Results & Data Results & Data ([facility]) Vital Signs (Past 12 Hours) Vital Signs Temp Pulse Pulse Resp BP BP Pulse Ox 04/01/22 17:42 79 26 H 139/81 92 04/01/22 17:00 37.4 C 04/01/22 13:23 37.8 C H 106 H 16 132/77 93 O2 Del Method 04/01/22 17:42 Room Air 04/01/22 17:00 04/01/22 13:23 Room Air Laboratory Results Short CBC 04/01/22 Range/Units 15:35 WBC 23.18 H (4.8-10.8) K/ul Hgb 12.3 (12.0-16.0) g/dl Hct 37.5 (34.1-44.9) % Plt Count 358 (130-400) K/uL BMP 04/01/22 15:35 Sodium 128 L Potassium 4.0 Chloride 95 L Carbon Dioxide 23 BUN 12 Creatinine 0.91 Glucose 217 H Calcium 8.1 L Liver Function 04/01/22 Range/Units 15:35 Total Bilirubin 0.3 (0.2-1.0) mg/dl AST 13 (13-39) U/L ALT 9 (7-52) U/L Alkaline Phosphatase 42 (34-104) U/L Albumin 3.5 (3.4-5.0) gm/dl Urine 04/01/22 Range/Units 19:27 Urine Color Yellow Urine Appearance Cloudy A (Clear) Urine pH 5.5 (4.5-7.5) Ur Specific [place] 1.030 (1.000-1.030) Urine Protein Negative (Negative) Urine Glucose (UA) Negative (Negative) Diagnostic Findings Face CT 04/01/22 16:47 CT SCAN OF THE FACIAL BONES WITH IV CONTRAST CLINICAL HISTORY: Left lower jaw swelling. COMPARISON STUDY: CT of the neck dated 07/26/2020. TECHNIQUE: High-resolution CT scan of the facial bones is performed following the IV administration of 91 cc of Optiray 300. Images are reviewed in the axial, sagittal, and coronal planes. IV contrast was administered without complication. A dose lowering technique was utilized adhering to the principles of ALARA. CT DOSE: 196.55 mGy.cm FINDINGS: The skeletal structures are osteopenic. There is no evidence of facial bone fracture. The bony orbits are intact and the orbital contents are within normal limits. The zygomatic arches, nasal bones, and pterygoid plates are preserved. The maxilla and mandible are intact. There are no layering blood products within the paranasal sinuses. There is subtotal opacification of the left frontal sinus and the left anterior ethmoid sinuses. Moderate mucosal thickening seen in the maxillary antra. The sphenoid sinuses are under pneumatized. There are trace mastoid effusions. The visualized calvarium and upper cervical spine are maintained. Partially imaged brain parenchyma is within normal limits noting age-related involutional change. The patient is edentulous. There is bulky cervical lymphadenopathy. Conglomerate adenopathy is seen throughout the neck bilaterally. A ladarius aggregate in the left lower neck on image #26 measures approximately 3 x 2.5 cm there is mild surrounding infiltration. The left cervical chain node on image #2 origin 34 measures 2.3 x 2.2 cm. Intraparotid lymph nodes measure up to 1.1 cm. There is infiltration of the left facial soft tissues with overlying dermal thickening. No organized fluid collection is seen to suggest abscess. There is infiltration of the left parapharyngeal fat. The airway appears patent. The tonsils are edematous. The carotid arteries and jugular veins appear patent. IMPRESSION: 1. No acute facial bone abnormality is identified. 2. There is bulky bilateral cervical lymphadenopathy which is similar to the neck CT. The appearance favors a lymphoproliferative disorder. Correlate with the patient's oncological history. 3. There is infiltration of the left facial soft tissues suggesting cellulitis. Additionally, there is infiltration around left cervical lymph nodes which may represent lymphadenitis. Clinical correlation will be required, and these findings are similar to the 07/26/[address] 4. No organized fluid collection is seen to indicate abscess. 5. There is infiltration of the left parapharyngeal fat, as well as edema of the tonsils. Correlate clinically for evidence of a tonsillitis/pharyngitis. 6. The patient is edentulous. 7. Paranasal sinus disease as above. ACT 112: Negative or not required by law. Electronically signed by: Skinny Villavicencio M.D. 04/01/2022 5:37 PM Supervising Physician Co-Signing Physician Notes Pt seen and examined by me, care coordinated w/ Clarisa Thomas PA-C, pls refer to her note above for further detail. Used willow machine tender via iPad, patient speaks Syriac. Pt is 71 y/o F with HTN, HLD, DM II, chronic lymphocytic leukemia/small lymphocytic lymphoma, CKD III, hypothyroidism, GERD who presents to ER with left facial swelling x 1 week. Reports fever and seen by PCP, referred to ED for further eval. She is having trouble eating secondary to discomfort. She reports similar symptoms while in [place] with mouth inflamed and was treated with IV and oral antibiotics in January of 2022. Patient states dentures are ill fitting and cause pain as well as she feels this is causing the problem. Denies sore throat or neck pain. Recently also diagnosed with UTI as outpatient, and finished antibiotic treatment. In the ED started on Zosyn, which will continue. Given white plaque on physical exam, patient may have oral candidiasis, will also provide nystatin swish and swallow. Continue to closely monitor. MD Nickolas
[2022-04-01 19:50] LABS: Appearance Urine Cloudy (Clear); Bacteria Urine Automated 2+ (Negative); Bilirubin Urine Negative (Negative); Blood Urine 1+ (Negative); Color Urine Yellow; Epithelial Cell Urine Auto >30 /lpf (0-5); Glucose Urine UA Negative (Negative); Ketones Urine Negative (Negative); Leukocyte Esterase Urine 3+ (Negative); Nitrite Urine Negative (Negative); Protein Urine Negative (Negative); Urobilinogen Urine Negative (Negative); WBC Urine Automated >30 /hpf (0-5); pH Urine 5.5 (4.5-7.5)
[2022-04-01] MEDS ORDERED: ONDANSETRON INJ 2 MG/ML 2 ML VIAL IV PRN (20:37)
[2022-04-01] MEDS ORDERED: GLUCAGON FOR INJ 1 MG VIAL SQ PRN (20:37)
[2022-04-01] MEDS ORDERED: SODIUM CHLORIDE 0.9% 1000ML 1,000 ML IV SCH (20:37)
[2022-04-01] MEDS ORDERED: DEXTROSE 50% 50 ML SYRINGE IV PRN (20:37)
[2022-04-01] MEDS ORDERED: FLUTICASONE PROPIONATE NA SPR 16 GM BTL NAE PRN (20:37)
[2022-04-01] MEDS ORDERED: GLUCOSE 40% GEL 15 GM TUBE PO PRN (20:37)
[2022-04-01] MEDS ORDERED: POLYETHYLENE (MIRALAX) 17 GM PACK PO PRN (20:37)
[2022-04-01] MEDS ORDERED: ALBUTEROL HFA 8 GM INHALER INH PRN (20:37)
[2022-04-01] MEDS ORDERED: GLUCOSE 10 TAB/TUBE PO PRN (20:37)
[2022-04-01] MEDS ORDERED: CARBOHYDRATES FOR HYPOGLYCEMIA PO PRN (20:37)
[2022-04-01 20:50] LABS: RBC Urine Automated 0-4 /hpf (0-4)
[2022-04-01] MEDS: guaiFENesin 600 MG TABCR PO SCH (21:27)
[2022-04-01] MEDS: NYSTATIN SUSP 500,000 U/5 ML UDC PO SCH (21:28)
[2022-04-01] MEDS: MONTELUKAST SODIUM 10 MG TABLET PO SCH (21:31)
[2022-04-01] MEDS: ENOXAPARIN INJ 40 MG/0.4 ML SYR SQ SCH (21:35)
[2022-04-01] MEDS: PIPERACILLIN/TAZOBACTAM 3.375 GM in DEXTROSE 5% 100 ML IV SCH (22:14)
[2022-04-01] MEDS: LANTUS PER UNIT CHARGE SQ SCH (22:17)
[2022-04-01] MEDS: INSULIN ASPART PER UNIT SC SCH (22:18)
[2022-04-02 05:57] LABS: Hematocrit (blood only) 30.8 % (34.1-44.9); Hemoglobin 10.2 g/dl (12.0-16.0); Mean Corpuscular Hemoglobin 27.2 pg (25.0-34.0); Mean Corpuscular Hgb Conc 33.1 g/dL (32.0-36.0); Mean Corpuscular Volume 82.1 fL (80.0-100.0); Mean Platelet Volume 9.6 fL (9.4-12.3); Nucleated RBC # (auto) 0.02 K/uL (0-0); Nucleated RBC % (auto) 0.1 %; Platelet Count 275 K/uL (130-400); RDW Coefficient of Variation 15.6 % (11.5-14.5); RDW Standard Deviation 46.9 fL (36.4-46.3); Red Blood Count 3.75 M/uL (3.93-5.22); White Blood Count 18.24 K/ul (4.8-10.8)
[2022-04-02] MEDS: PIPERACILLIN/TAZOBACTAM 3.375 GM in DEXTROSE 5% 100 ML IV SCH ×3 (05:58→22:10)
[2022-04-02] MEDS: LEVOTHYROXINE SODIUM 25 MCG TABLET PO SCH (05:58)
[2022-04-02] MEDS: LEVOTHYROXINE SODIUM 100 MCG TABLET PO SCH (05:58)
[2022-04-02 06:19] LABS: BUN Creatinine Ratio 11.4 (10-20); Calcium 7.3 mg/dl (8.5-10.1); Creatinine Clr Calc Pharmacy 62.2 ml/min; Est GFR (African American) 76.1 ml/min; Est GFR (Non-African American) 65.6 ml/min; Potassium 4.2 mmol/L (3.5-5.1)
[2022-04-02 07:09] LABS: Basophils # (auto) 0.09 K/uL (0-0.2); Basophils % (auto) 0.5 %; Eosinophils # (auto) 0.29 K/uL (0-0.50); Eosinophils % (auto) 1.6 %; Immature Granulocytes # (auto) 0.07 K/uL (0.00-0.02); Immature Granulocytes % (auto) 0.4 %; Lymphocytes # (auto) 12.51 K/uL (1.2-3.4); Lymphocytes % (auto) 68.6 %; Monocytes # (auto) 1.28 K/uL (0.24-0.82); Neutrophils % (auto) 21.9 %; Smudge Cells Present
[2022-04-02] MEDS: INSULIN ASPART PER UNIT SC SCH ×4 (08:49→22:12)
[2022-04-02] MEDS: LANTUS PER UNIT CHARGE SQ SCH ×2 (08:50→22:12)
[2022-04-02] MEDS: PANTOprazole 40 MG TAB PO SCH (08:56)
[2022-04-02] MEDS: LORATADINE 10 MG TAB PO SCH (08:56)
[2022-04-02] MEDS: guaiFENesin 600 MG TABCR PO SCH ×2 (08:56→22:10)
[2022-04-02] MEDS: ATORVASTATIN 40 MG TAB PO SCH (08:56)
[2022-04-02] MEDS: METOPROLOL SUCC 25MG EXT REL TAB PO SCH (08:56)
[2022-04-02] MEDS: IRBESARTAN 150 MG TAB PO SCH (08:57)
[2022-04-02] MEDS: CHOLECALCIFEROL 5,000 UNITS 125 MCG TAB PO SCH (08:57)
[2022-04-02] MEDS: ASPIRIN 81 MG ECTAB PO SCH (08:57)
[2022-04-02] MEDS: SACCHAROMYCES BOULARDII 250 MG CAP PO SCH (08:57)
[2022-04-02] MEDS: NYSTATIN SUSP 500,000 U/5 ML UDC PO SCH ×4 (08:58→22:10)
[2022-04-02] MEDS: ACETAMINOPHEN 325 MG TAB PO PRN ×3 (08:59→22:11)
--- NOTE | 2022-04-02 14:28 | Hospitalist Progress Note ---
Date of Service April 02, 2022 Assessment & Plan (1) Facial cellulitis: Plan: Per admitting service notes with addendum: Patient is 71 y/o F with PMH HTN, HLD, DM II, chronic lymphocytic leukemia/small lymphocytic lymphoma, CKD III, hypothyroidism, GERD presented to ER with c/o facial swelling x 1 week. History obtained from patient through the hat stock laminating machine operator and through outpatient chart review. Seen outpatient clinic today and referred to ER secondary to fever of 38.4C. Treated for dental/facial infection while in [place] in 01/23 with IV and oral antibiotics with improvement. In ER T: 37.8C, P: 106, BP: 132/77, 93% on RA WBC: 23. (Baseline 28-35) In ER given 1L NSS, Zosyn Blood cultures pending and were obtained after initial antibiotics given in ER Continue Zosyn IVF Will start swish and swallow nystatin for suspected oral candidiasis Will need further outpatient follow up for assistance with proper fitting dentures CBC, BMP in am 04/02 Afebrile, leukocytosis improving Blood cultures: Pending Urine culture: High counts of 3 organisms, repeat collection recommend Continue IV Zosyn Nystatin Follow-up cultures Check chest x-ray (2) Hyponatremia: Plan: Repeat sodium 133 (3) Recent urinary tract infection: Plan: 03/13/22 Urine culture positive for Beta Streptococcucs group B. Treated with amoxicillin Pt denies dysuria, hematuria, abdominal pain Urine culture: Recommending repeat collection (4) Diabetes mellitus type 2, controlled: Plan: A1c: 6.7 on 03/02/22 Hold oral meds Continue home Lantus Novolog sliding scale per protocol (5) HTN (hypertension): Plan: Continue irbesartan, metoprolol succinate (6) Chronic lymphocytic leukemia: Plan: Follows with Dr Bird (7) CKD (chronic kidney disease), stage III: Plan: Cr: 0.9. Baseline 0.9-1.0 Monitor renal functions, avoid nephrotoxic agents when possible (8) Hypothyroid: Plan: Continue levothyroxine (9) GERD (gastroesophageal reflux disease): Plan: Continue PPI DVT Prophylaxis Lovenox SQ Full Code as per discussion with pt and pt's son Follows with Dr Loja for routine care plan of care discussed with patient and patient's son in detail and at length all questions answered they are understanding, agreeable, comfortable with the plan of care Admission and Anticipated Discharge Date Admission Date: April 01, 2022 Subjective Follow-up for left face cellulitis, etc. Seen resting in bed, patient's son at the bedside assisting patient with breakfast Translation assisted by patient's son Left face pain is somewhat improved today, no problems with swallowing, no shortness of breath Per son, patient's left facial swelling is better compared to yesterday No fevers or chills, nausea vomiting No other symptoms Review of Systems Review of Systems: all noted and negative except for above Physical Exam Physical Exam: General- oriented x 3, not in distress, speaks in sentences with no effort or accessory muscle use Head- atraumatic Face-positive moderate edema left lower face, left lower jaw area Eyes- PERRL, EOMI, anicteric ENT- Minimal trismus Positive oral thrush Neck- supple, no JVD, no adenopathy, no thyromegaly; carotids +2/2, no bruits appreciated Lungs- clear to auscultation bilaterally, no rales/wheezes Heart- normal rate, regular rhythm; no murmur, no gallop, no rub appreciated Abdomen- normal bowel sounds, nondistended, soft, nontender, no masses or hepatosplenomegaly Extremities- no pretibial edema, no calf tenderness; peripheral pulses intact Neuro- alert, oriented x 3; CN 2-12 grossly intact; motor 5/5 bilaterally;sensation 100% on all extremities; no other gross focal neurologic deficits Skin- warm & dry Results & Data Results & Data ([facility]) Vital Signs (Past 12 Hours) Vital Signs Temp Pulse Resp BP Pulse Ox O2 Del Method 04/02/22 11:22 36.7 C 70 18 119/72 96 04/02/22 11:02 Room Air 04/02/22 08:06 36.9 C 67 18 146/82 H 97 04/02/22 02:51 36.9 C 72 18 135/75 94 Room Air all noted and reviewed including below
--- NOTE | 2022-04-02 15:23 | XRay Report ---
XR chest 1V portable CLINICAL HISTORY: crackles on the right, r/o pneumonia COMPARISON STUDY: Chest radiograph November 20, 2019. FINDINGS: Lung volumes are mildly diminished. Lungs are clear. There is no pneumothorax or pleural ef fusion. Cardiac size is normal. Mediastinal contours are normal. There is no evidence for pulmonary e boris. IMPRESSION: No acute cardiopulmonary findings. ACT 112: Negative or not required by law. Electronically signed by: Adi Escobar M.D. 04/02/2022 3:22 PM
[2022-04-02 19:05] LABS: A calco-baum cmplx NotReported Not Detected (NotDetected); Bact fragilis Not Reported Not Detected (NotDetected); C auris Not Reported Not Detected (NotDetected); Calbicans Not Reported Not Detected (NotDetected); Candida glabrata Not Reported Not Detected (NotDetected); Candida krusei Not Reported Not Detected (NotDetected); Cneoformans/gatti Not Reported Not Detected (NotDetected); Cparapsilosis Not Reported Not Detected (NotDetected); Ctropicalis Not Reported Not Detected (NotDetected); E cloacae compx Not Reported Not Detected (NotDetected); Efaecalis Not Reported Not Detected (NotDetected); Efaecium Not Reported Not Detected (NotDetected); Enterobacterales Not Reported Not Detected (NotDetected); Escherichia coli Not Reported Not Detected (NotDetected); H influenzae Not Reported Not Detected (NotDetected); K aerogenes Not Reported Not Detected (NotDetected); Koxytoca Not Reported Not Detected (NotDetected); Kpneumoniae grp Not Reported Not Detected (NotDetected); Lmonocyt Not Reported Not Detected (NotDetected); N meningitidis Not Reported Not Detected (NotDetected); P aeruginosa Not Reported Not Detected (NotDetected); Proteus spp Not Reported Not Detected (NotDetected); Salmonella spp Not Reported Not Detected (NotDetected); Smarcescens Not Reported Not Detected (NotDetected); Staph lugdunensis Not Reported Not Detected (NotDetected); Staph spp. Not Reported DETECTED (NotDetected); Staphaureus Not Reported Not Detected (NotDetected); Staphepi Not Reported Not Detected (NotDetected); Stenmaltophilia Not Reported Not Detected (NotDetected); Strep agal(GrpB) Not Reported Not Detected (NotDetected); Strep pneum Not Reported Not Detected (NotDetected); Strep pyog (GrpA) Not Reported Not Detected (NotDetected); Strep spp Not Reported Not Detected (NotDetected)
[2022-04-02] MEDS ORDERED: VANCOMYCIN CONSULT ACTIVE PRN (19:30)
[2022-04-02] MEDS ORDERED: VANCOMYCIN HCL 1,750 MG in SODIUM CHLORIDE 0.9% 500 ML IV ONE (20:00)
[2022-04-02 20:03] LABS: Staphylococcus spp. DETECTED (NotDetected)
[2022-04-02] MEDS: ENOXAPARIN INJ 40 MG/0.4 ML SYR SQ SCH (22:10)
[2022-04-02] MEDS: MONTELUKAST SODIUM 10 MG TABLET PO SCH (22:10)
[2022-04-03] MEDS: ACETAMINOPHEN 325 MG TAB PO PRN ×2 (06:02→21:01)
[2022-04-03] MEDS: PIPERACILLIN/TAZOBACTAM 3.375 GM in DEXTROSE 5% 100 ML IV SCH ×3 (06:03→21:12)
[2022-04-03] MEDS: LEVOTHYROXINE SODIUM 25 MCG TABLET PO SCH (06:03)
[2022-04-03] MEDS: LEVOTHYROXINE SODIUM 100 MCG TABLET PO SCH (06:03)
[2022-04-03 07:04] LABS: Hematocrit (blood only) 30.9 % (34.1-44.9); Hemoglobin 10.2 g/dl (12.0-16.0); Mean Corpuscular Hemoglobin 27.2 pg (25.0-34.0); Mean Corpuscular Volume 82.4 fL (80.0-100.0); Mean Platelet Volume 9.9 fL (9.4-12.3); Nucleated RBC # (auto) 0.02 K/uL (0-0); Nucleated RBC % (auto) 0.1 %; Platelet Count 295 K/uL (130-400); RDW Coefficient of Variation 15.4 % (11.5-14.5); RDW Standard Deviation 46.5 fL (36.4-46.3); Red Blood Count 3.75 M/uL (3.93-5.22); White Blood Count 17.05 K/ul (4.8-10.8)
[2022-04-03 07:23] LABS: BUN Creatinine Ratio 9.9 (10-20); Calcium 7.7 mg/dl (8.5-10.1); Creatinine Clr Calc Pharmacy 75.6 ml/min; Est GFR (African American) 98.6 ml/min; Est GFR (Non-African American) 85.1 ml/min; Potassium 3.7 mmol/L (3.5-5.1)
[2022-04-03 08:09] LABS: Basophils % (auto) 0.6 %; Eosinophils # (auto) 0.43 K/uL (0-0.50); Eosinophils % (auto) 2.5 %; Immature Granulocytes # (auto) 0.04 K/uL (0.00-0.02); Immature Granulocytes % (auto) 0.2 %; Lymphocytes # (auto) 12.47 K/uL (1.2-3.4); Lymphocytes % (auto) 73.1 %; Monocytes # (auto) 1.12 K/uL (0.24-0.82); Monocytes % (auto) 6.6 %; Neutrophils # (auto) 2.89 K/uL (1.4-6.5); Smudge Cells Present
[2022-04-03] MEDS: ASPIRIN 81 MG ECTAB PO SCH (08:14)
[2022-04-03] MEDS: SACCHAROMYCES BOULARDII 250 MG CAP PO SCH (08:14)
[2022-04-03] MEDS: NYSTATIN SUSP 500,000 U/5 ML UDC PO SCH ×4 (08:14→21:02)
[2022-04-03] MEDS: guaiFENesin 600 MG TABCR PO SCH ×2 (08:14→21:02)
[2022-04-03] MEDS: CHOLECALCIFEROL 5,000 UNITS 125 MCG TAB PO SCH (08:14)
[2022-04-03] MEDS: METOPROLOL SUCC 25MG EXT REL TAB PO SCH (08:14)
[2022-04-03] MEDS: LORATADINE 10 MG TAB PO SCH (08:14)
[2022-04-03] MEDS: ATORVASTATIN 40 MG TAB PO SCH (08:14)
[2022-04-03] MEDS: IRBESARTAN 150 MG TAB PO SCH (08:14)
[2022-04-03] MEDS: PANTOprazole 40 MG TAB PO SCH (08:14)
[2022-04-03] MEDS: INSULIN ASPART PER UNIT SC SCH ×4 (08:26→21:02)
[2022-04-03] MEDS: LANTUS PER UNIT CHARGE SQ SCH ×2 (08:27→21:03)
--- NOTE | 2022-04-03 18:21 | Hospitalist Progress Note ---
Date of Service April 03, 2022 Assessment & Plan (1) Facial cellulitis: Plan: Per admitting service notes with addendum: Patient is 71 y/o F with PMH HTN, HLD, DM II, chronic lymphocytic leukemia/small lymphocytic lymphoma, CKD III, hypothyroidism, GERD presented to ER with c/o facial swelling x 1 week. History obtained from patient through the court interpreter and through outpatient chart review. Seen outpatient clinic today and referred to ER secondary to fever of 38.4C. Treated for dental/facial infection while in [place] in 01/23 with IV and oral antibiotics with improvement. In ER T: 37.8C, P: 106, BP: 132/77, 93% on RA WBC: 23. (Baseline 28-35) In ER given 1L NSS, Zosyn Blood cultures pending and were obtained after initial antibiotics given in ER Continue Zosyn IVF Will start swish and swallow nystatin for suspected oral candidiasis Will need further outpatient follow up for assistance with proper fitting dentures CBC, BMP in am Chest x-ray: No pneumonia 04/03 Afebrile, leukocytosis improving Blood cultures: Coag neck staph not lugdunensis in 1 bottle Repeat blood cultures: Pending Urine culture: High counts of 3 organisms, repeat collection recommend Repeat urine culture: Pending Continue IV Zosyn Nystatin Follow-up cultures (2) Hyponatremia: Plan: Repeat sodium 136 (3) Recent urinary tract infection: Plan: 03/13/22 Urine culture positive for Beta Streptococcucs group B. Treated with amoxicillin Pt denies dysuria, hematuria, abdominal pain Urine culture: Pending (4) Diabetes mellitus type 2, controlled: Plan: A1c: 6.7 on 03/02/22 Hold oral meds Continue home Lantus Novolog sliding scale per protocol (5) HTN (hypertension): Plan: Continue irbesartan, metoprolol succinate (6) Chronic lymphocytic leukemia: Plan: Follows with Dr Bird (7) CKD (chronic kidney disease), stage III: Plan: Cr: 0.9. Baseline 0.9-1.0 Monitor renal functions, avoid nephrotoxic agents when possible (8) Hypothyroid: Plan: Continue levothyroxine (9) GERD (gastroesophageal reflux disease): Plan: Continue PPI DVT Prophylaxis Lovenox SQ Full Code as per discussion with pt and pt's son Follows with Dr Mainali for routine care plan of care discussed with patient and patient's son over the phone all questions answered they are understanding, agreeable, comfortable with the plan of care Admission and Anticipated Discharge Date Admission Date: April 01, 2022 Subjective Follow-up for left facial cellulitis, etc. Seen resting in bed, awake and alert, appears brighter today compared to yesterday Smart phone pocketed spring assembler utilized to communicate with patient States she feels somewhat better today, pain over the swollen area improving Able to tolerate pured diet, no problems with swallowing or shortness of breath No fevers or chills Denies other symptoms Review of Systems Review of Systems: all noted and negative except for above Physical Exam Physical Exam: General- oriented x 3, not in distress, speaks in sentences with no effort or accessory muscle use Eyes- anicteric Face-mild edema left lower face Oral-mild swelling left buccal mucosa, minimal tenderness, no erythema, no warmth Oral thrush improving Neck-mild swelling left submandibular region, minimal tenderness Lungs- clear breath sounds bilaterally, no rales/wheezes Heart- normal rate, regular rhythm; no murmurs Abdomen- normal bowel sounds, nondistended, soft, nontender Extremities- no pretibial edema, no calf tenderness Neuro- alert, oriented x 3; no new gross focal neurologic deficits Skin- warm & dry Results & Data Results & Data ([facility]) Vital Signs (Past 12 Hours) Vital Signs Temp Pulse Pulse Resp BP BP Pulse Ox 04/03/22 16:02 36.6 C 77 20 170/83 H 93 04/03/22 14:59 74 04/03/22 11:19 36.3 C L 65 18 150/89 H 97 04/03/22 08:00 04/03/22 07:30 63 04/03/22 07:45 36.5 C 64 18 137/86 95 O2 Del Method 04/03/22 16:02 Room Air 04/03/22 14:59 04/03/22 11:19 Room Air 04/03/22 08:00 Room Air 04/03/22 07:30 04/03/22 07:45 all noted and reviewed including below
[2022-04-03] MEDS ORDERED: MELATONIN 3 MG TAB PO PRN (19:54)
[2022-04-03] MEDS ORDERED: VANCOMYCIN HCL 1,000 MG in SODIUM CHLORIDE 0.9% 250 ML IV SCH (20:00)
[2022-04-03] MEDS: MONTELUKAST SODIUM 10 MG TABLET PO SCH (21:01)
[2022-04-03] MEDS: ENOXAPARIN INJ 40 MG/0.4 ML SYR SQ SCH (21:01)
[2022-04-04] MEDS: LEVOTHYROXINE SODIUM 100 MCG TABLET PO SCH (06:23)
[2022-04-04] MEDS: PIPERACILLIN/TAZOBACTAM 3.375 GM in DEXTROSE 5% 100 ML IV SCH (06:24)
[2022-04-04] MEDS: LEVOTHYROXINE SODIUM 25 MCG TABLET PO SCH (06:24)
[2022-04-04 07:32] LABS: Hematocrit (blood only) 31.7 % (34.1-44.9); Hemoglobin 10.5 g/dl (12.0-16.0); Mean Corpuscular Hemoglobin 26.8 pg (25.0-34.0); Mean Corpuscular Hgb Conc 33.1 g/dL (32.0-36.0); Mean Corpuscular Volume 80.9 fL (80.0-100.0); Mean Platelet Volume 9.9 fL (9.4-12.3); Nucleated RBC # (auto) 0.02 K/uL (0-0); Nucleated RBC % (auto) 0.1 %; Platelet Count 313 K/uL (130-400); RDW Coefficient of Variation 14.9 % (11.5-14.5); RDW Standard Deviation 44.1 fL (36.4-46.3); Red Blood Count 3.92 M/uL (3.93-5.22); White Blood Count 19.71 K/ul (4.8-10.8)
[2022-04-04] MEDS: NYSTATIN SUSP 500,000 U/5 ML UDC PO SCH (08:07)
[2022-04-04] MEDS: ASPIRIN 81 MG ECTAB PO SCH (08:07)
[2022-04-04] MEDS: guaiFENesin 600 MG TABCR PO SCH (08:07)
[2022-04-04] MEDS: IRBESARTAN 150 MG TAB PO SCH (08:08)
[2022-04-04] MEDS: SACCHAROMYCES BOULARDII 250 MG CAP PO SCH (08:08)
[2022-04-04] MEDS: CHOLECALCIFEROL 5,000 UNITS 125 MCG TAB PO SCH (08:08)
[2022-04-04] MEDS: PANTOprazole 40 MG TAB PO SCH (08:08)
[2022-04-04] MEDS: ATORVASTATIN 40 MG TAB PO SCH (08:08)
[2022-04-04] MEDS: LORATADINE 10 MG TAB PO SCH (08:08)
[2022-04-04] MEDS: METOPROLOL SUCC 25MG EXT REL TAB PO SCH (08:08)
[2022-04-04 08:19] LABS: BUN Creatinine Ratio 6.1 (10-20); Basophils # (auto) 0.12 K/uL (0-0.2); Basophils % (auto) 0.6 %; Calcium 7.8 mg/dl (8.5-10.1); Creatinine Clr Calc Pharmacy 66.2 ml/min; Eosinophils # (auto) 0.42 K/uL (0-0.50); Eosinophils % (auto) 2.1 %; Est GFR (African American) 82.9 ml/min; Est GFR (Non-African American) 71.5 ml/min; Immature Granulocytes # (auto) 0.06 K/uL (0.00-0.02); Immature Granulocytes % (auto) 0.3 %; Lymphocytes # (auto) 14.94 K/uL (1.2-3.4); Lymphocytes % (auto) 75.8 %; Monocytes % (auto) 5.6 %; Neutrophils # (auto) 3.07 K/uL (1.4-6.5); Neutrophils % (auto) 15.6 %; Potassium 3.5 mmol/L (3.5-5.1); Smudge Cells Present
[2022-04-04] MEDS: LANTUS PER UNIT CHARGE SQ SCH (08:19)
[2022-04-04] MEDS: INSULIN ASPART PER UNIT SC SCH (08:19)
--- NOTE | 2022-04-04 11:45 | Hospitalist Progress Note ---
Date of Service April 04, 2022 Assessment & Plan (1) Facial cellulitis: Plan: Per admitting service notes with addendum: Patient is 71 y/o F with PMH HTN, HLD, DM II, chronic lymphocytic leukemia/small lymphocytic lymphoma, CKD III, hypothyroidism, GERD presented to ER with c/o facial swelling x 1 week. History obtained from patient through the information assurance analyst and through outpatient chart review. Seen outpatient clinic today and referred to ER secondary to fever of 38.4C. Treated for dental/facial infection while in [place] in 01/23 with IV and oral antibiotics with improvement. In ER T: 37.8C, P: 106, BP: 132/77, 93% on RA WBC: 23. (Baseline 28-35) In ER given 1L NSS, Zosyn Blood cultures pending and were obtained after initial antibiotics given in ER Continue Zosyn IVF Will start swish and swallow nystatin for suspected oral candidiasis Will need further outpatient follow up for assistance with proper fitting dentures CBC, BMP in am Chest x-ray: No pneumonia 04/04 Afebrile, leukocytosis improving Blood cultures: Coag neck staph not lugdunensis in 1 bottle Repeat blood cultures: Pending Urine culture: High counts of 3 organisms, repeat collection recommend Repeat urine culture: Pending completed 2 days of IV Zosyn--> transition to Augmentin x 1 week Nystatin--> x 7 more days Follow-up cultures Folllow up with PCP in 1 week (2) Hyponatremia: Plan: Repeat sodium 136 (3) Recent urinary tract infection: Plan: 03/13/22 Urine culture positive for Beta Streptococcucs group B. Treated with amoxicillin Pt denies dysuria, hematuria, abdominal pain Urine culture: Pending (4) Diabetes mellitus type 2, controlled: Plan: A1c: 6.7 on 03/02/22 Hold oral meds Continue home Lantus Novolog sliding scale per protocol (5) HTN (hypertension): Plan: Continue irbesartan, metoprolol succinate (6) Chronic lymphocytic leukemia: Plan: Follows with Dr Bird (7) CKD (chronic kidney disease), stage III: Plan: Cr: 0.9. Baseline 0.9-1.0 Monitor renal functions, avoid nephrotoxic agents when possible (8) Hypothyroid: Plan: Continue levothyroxine (9) GERD (gastroesophageal reflux disease): Plan: Continue PPI DVT Prophylaxis Lovenox SQ Full Code as per discussion with pt and pt's son Follows with Dr Loja for routine care discharge to home ff up with PCP in 1 week Admission and Anticipated Discharge Date Admission Date: April 01, 2022 Subjective ff up for facial cellulitis, etc seen resting in bed, comfortable phone translation utilized feels better today minimal pain on the left face no problems swallowing no tongue/lip swelling, shortness of breath, cough no other symptoms Review of Systems Review of Systems: all noted and negative except for above Physical Exam Physical Exam: General- oriented x 3, not in distress, speaks in sentences with no effort or accessory muscle use Eyes- anicteric Face- minimal edema, left lower face minimal swelling left oral mucosa multiple papules on the face, neck Neck- no JVD Lungs- clear breath sounds bilaterally, no rales/wheezes Heart- normal rate, regular rhythm; no murmurs Abdomen- normal bowel sounds, nondistended, soft, nontender Extremities- no pretibial edema, no calf tenderness Neuro- alert, oriented x 3; no gross focal neurologic deficits Skin- warm & dry Results & Data Results & Data ([facility]) Vital Signs (Past 12 Hours) Vital Signs Temp Pulse Pulse Resp BP BP Pulse Ox 04/04/22 11:41 36.6 C 68 16 161/79 H 156/80 H 94 04/04/22 11:22 36.6 C 68 16 161/79 H 156/80 H 94 04/04/22 07:35 04/04/22 07:49 36.6 C 68 16 161/79 H 94 04/04/22 07:25 65 O2 Del Method 04/04/22 11:41 04/04/22 11:22 04/04/22 07:35 Room Air 04/04/22 07:49 Room Air 04/04/22 07:25 all noted and reviewed including below
[2022-04-04] MEDS ORDERED: AMOXICILLIN/CLAVULANATE 875 MG TAB PO SCH (17:00)
[2022-04-05] MEDS ORDERED: LEVOTHYROXINE SODIUM 50 MCG TABLET PO SCH (06:30)
--- NOTE | 2022-04-20 13:23 | Discharge Summary ---
Discharge Summary Date of Service delayed entry date for service 04/04/22 Notes For Next Care Provider Medication Changes From Visit Augmentin x 1 week Nystatin swish and swallow x 1 week Admission HPI Per Admitting Provider Patient is 71 y/o F with PMH HTN, HLD, DM II, chronic lymphocytic leukemia/small lymphocytic lymphoma, CKD III, hypothyroidism, GERD presented to ER with c/o facial swelling x 1 week. History obtained from patient through the sales activity manager and through outpatient chart review. Patient speaks mongolian. Patient unaware if fever at home. Today feeling generalized weakness. Able to speak to her Son and he reports she has been having chronic weakness and has been having home PT twice weekly with improvement until today was feeling more weak. Seen outpatient clinic today and referred to ER secondary to fever of 38.4C. Patient reports left face and mouth inflamed for one week and having trouble eating secondary to discomfort. She states similar symptoms while in [place] with mouth inflamed and was treated with IV and oral antibiotics in January of 2022. Patient reports symptoms improved after the antibiotics until one week ago. Patient states den tures are ill fitting and cause pain as well as she feels this is causing the problem. She states had dentures made here in [employer] but didn't use because was not comfortable. Patient can't chew food well with her ill fitting dentures but is able to swallow foods and liquids without difficulty or choking. Denies sore throat or neck pain. She states did not have her medications today. Denies dysuria, hematuria, abdominal pain. Denies diaphoresis, N/V/D/C, NEGRETE, dizziness, syncope, vision changes, CP, SOB, cough, otalgia, rhinorrhea, abdominal pain, paresthesias, extremity weakness, extremity edema, rashes. Outpatient chart reviewed and on 03/13/22 PCP visit for cough x 1 day and ongoing generalized weakness and was treated for UTI with amoxicillin and given Ventolin inhaler for suspected bronchitis. Urine culture positive for Beta Streptococcucs group B. Negative SARS-COV-2 NAAT at that time. Admission Exam Per Admitting Provider General: no distress, WDWN Head: normocephalic, atraumatic Eyes: PERRL, EOM's intact, conjunctiva non-injected, anicteric ENT: normal inspection external ears, nose, mucous membranes moist; +adentulous. left lower gingiva with erythema and edema with white plaques Neck: supple, trachea midline Lungs: clear, no respiratory distress, no wheezing/rhonchi/rales CV: RRR, no murmur, no pretibial edema Abd: normal BS, soft, non-tender Ext: no cyanosis, no calf tenderness Neuro: A&O x 3, no focal deficits noted, normal affect Skin: warm, dry Principal Dx & Hospital Course #1 = Principal Diagnosis (1) Cellulitis of face: (1) Facial cellulitis: Plan: Per admitting service notes with addendum: Patient is 71 y/o F with PMH HTN, HLD, DM II, chronic lymphocytic leukemia/small lymphocytic lymphoma, CKD III, hypothyroidism, GERD presented to ER with c/o facial swelling x 1 week. History obtained from patient through the sales activity manager and through outpatient chart review. Seen outpatient clinic today and referred to ER secondary to fever of 38.4C. Treated for dental/facial infection while in [place] in 01/23 with IV and oral antibiotics with improvement. In ER T: 37.8C, P: 106, BP: 132/77, 93% on RA WBC: 23. (Baseline 28-35) In ER given 1L NSS, Zosyn Blood cultures pending and were obtained after initial antibiotics given in ER Chest x-ray: No pneumonia 04/04 Afebrile, leukocytosis improving facial swelling mostly resolved Blood cultures: Coag neck staph not lugdunensis in 1 bottle Repeat blood cultures: Negative Urine culture: High counts of 3 organisms, repeat collection recommend Repeat urine culture: Negative completed 2 days of IV Zosyn--> transition to Augmentin x 1 week Nystatin--> x 7 more days Follow-up cultures Folllow up with PCP in 1 week (2) Hyponatremia: Plan: Repeat sodium 136 (3) Recent urinary tract infection: Plan: 03/13/22 Urine culture positive for Beta Streptococcucs group B. Treated with amoxicillin Pt denies dysuria, hematuria, abdominal pain Urine culture: Negative (4) Diabetes mellitus type 2, controlled: Plan: A1c: 6.7 on 03/02/22 continue outpatient regimen (5) HTN (hypertension): Plan: Continue irbesartan, metoprolol succinate (6) Chronic lymphocytic leukemia: Plan: Follows with Dr Bird (7) CKD (chronic kidney disease), stage III: Plan: Cr: 0.9. Baseline 0.9-1.0 Monitor renal functions, avoid nephrotoxic agents when possible (8) Hypothyroid: Plan: Continue levothyroxine (9) GERD (gastroesophageal reflux disease): Plan: Continue PPI DVT Prophylaxis Lovenox SQ discharge to home ff up with PCP in 1 week Discharge Exam General- oriented x 3, not in distress, speaks in sentences with no effort or accessory muscle use Eyes- anicteric Face- minimal edema, left lower face minimal swelling left oral mucosa multiple papules on the face, neck Neck- no JVD Lungs- clear breath sounds bilaterally, no rales/wheezes Heart- normal rate, regular rhythm; no murmurs Abdomen- normal bowel sounds, nondistended, soft, nontender Extremities- no pretibial edema, no calf tenderness Neuro- alert, oriented x 3; no gross focal neurologic deficits Skin- warm & dry Updated Medication List Medication Instructions Recorded Confirmed Type atorvastatin 40 mg tablet 40 mg PO QAM 05/08/19 04/01/22 History levothyroxine 100 mcg tablet 100 mcg PO DAILYBB 05/08/19 04/01/22 History metoprolol succinate 25 mg 25 mg PO QAM 05/08/19 04/01/22 History tablet,extended release 24 hr pantoprazole 40 mg tablet,delayed 40 mg PO QAM 11/30/19 04/01/22 History release (Protonix) aspirin 81 mg tablet,delayed 81 mg PO DAILY 07/26/20 04/01/22 History release (Shira Low Dose Aspirin) insulin glargine 100 unit/mL (3 32 unit subcut PM 07/26/20 04/01/22 History mL) subcutaneous pen (Lantus Solostar U-100 Insulin) irbesartan 150 mg tablet 150 mg PO QAM 07/26/20 04/01/22 History levothyroxine 50 mcg tablet 25 - 50 mcg PO UD 07/26/20 04/01/22 History linagliptin 5 mg tablet (Tradjenta) 5 mg PO QAM 07/26/20 04/01/22 History metformin 500 mg tablet,extended 1,000 mg PO BIDM 07/26/20 04/01/22 History release 24 hr albuterol sulfate 90 mcg/actuation 2 puff inhalation QID PRN cough or 04/01/22 04/01/22 History aerosol inhaler (Ventolin HFA) wheezing calcium acetate-magnesium carb 450 1 tab PO DAILY 04/01/22 04/01/22 History mg-200 mg tablet cholecalciferol (vitamin D3) 125 125 mcg PO DAILY 04/01/22 04/01/22 History mcg (5,000 unit) tablet (Vitamin D3) cyanocobalamin (vitamin B-12) 1,000 mcg IM .EVERY 3 MONTHS 04/01/22 04/01/22 History 1,000 mcg/mL injection solution diphenhydramine HCl 12.5 mg/5 mL 25 mg PO Q12 PRN allergy or itch 04/01/22 04/01/22 History oral elixir fluticasone propionate 50 2 spray intranasal DAILY PRN as 04/01/22 04/01/22 History mcg/actuation nasal directed spray,suspension [id number]-[id number] C-Mn 500 1 cap PO DAILY 04/01/22 04/01/22 History mg-400 mg capsule guaifenesin 600 mg tablet, 600 mg PO BID 04/01/22 04/01/22 History extended release 12 hr ketotifen fumarate 0.025 % (0.035 1 drp OPL [facility] 04/01/22 04/01/22 History %) eye drops loratadine 10 mg tablet 10 mg PO QAM 04/01/22 04/01/22 History montelukast 10 mg tablet 10 mg PO HS 04/01/22 04/01/22 History Hospital Stay Data Consultations 04/01/22 18:01 ED Decision to Admit Stat Diagnostic Imagining Performed 04/01/22 16:47 CT face [CT facial bones w con] Stat CT SCAN OF THE FACIAL BONES WITH IV CONTRAST CLINICAL HISTORY: Left lower jaw swelling. COMPARISON STUDY: CT of the neck dated 07/26/2020. TECHNIQUE: High-resolution CT scan of the facial bones is performed following the IV administration of 91 cc of Optiray 300. Images are reviewed in the axial, sagittal, and coronal planes. IV contrast was administered without complication. A dose lowering technique was utilized adhering to the principles of ALARA. CT DOSE: 196.55 mGy.cm FINDINGS: The skeletal structures are osteopenic. There is no evidence of facial bone fracture. The bony orbits are intact and the orbital contents are within normal limits. The zygomatic arches, nasal bones, and pterygoid plates are preserved. The maxilla and mandible are intact. There are no layering blood products within the paranasal sinuses. There is subtotal opacification of the left frontal sinus and the left anterior ethmoid sinuses. Moderate mucosal thickening seen in the maxillary antra. The sphenoid sinuses are under pneumatized. There are trace mastoid effusions. The visualized calvarium and upper cervical spine are maintained. Partially imaged brain parenchyma is within normal limits noting age-related involutional change. The patient is edentulous. There is bulky cervical lymphadenopathy. Conglomerate adenopathy is seen throughout the neck bilaterally. A ladarius aggregate in the left lower neck on image #26 measures approximately 3 x 2.5 cm there is mild surrounding inf iltration. The left cervical chain node on image #2 origin 34 measures 2.3 x 2.2 cm. Intraparotid lymph nodes measure up to 1.1 cm. There is infiltration of the left facial soft tissues with overlying dermal thickening. No organized fluid collection is seen to suggest abscess. There is infiltration of the left parapharyngeal fat. The airway appears patent. The tonsils are edematous. The carotid arteries and jugular veins appear patent. IMPRESSION: 1. No acute facial bone abnormality is identified. 2. There is bulky bilateral cervical lymphadenopathy which is similar to the 07/26/[address] The appearance favors a lymphoproliferative disorder. Correlate with the patient's oncological history. 3. There is infiltration of the left facial soft tissues suggesting cellulitis. Additionally, there is infiltration around left cervical lymph nodes which may represent lymphadenitis. Clinical correlation will be required, and these findings are similar to the 07/26/[address] 4. No organized fluid collection is seen to indicate abscess. 5. There is infiltration of the left parapharyngeal fat, as well as edema of the tonsils. Correlate clinically for evidence of a tonsillitis/pharyngitis. 6. The patient is edentulous. 7. Paranasal sinus disease as above. ACT 112: Negative or not required by law. Electronically signed by: Skinny Villavicencio M.D. 04/01/2022 5:37 PM Pending Results Patient Have Any Pending Studies at Discharge: No Discharge Instructions Given to Patient (Per Discharging Provider) PLEASE REFER TO YOUR NEW MEDICATION LIST AND FOLLOW INSTRUCTIONS CAREFULLY. YOUR NEW MEDICATIONS INCLUDE: AUGMENTIN- antibiotic for facial cellulitis NYSTATIN- antifungal medication for yeast infection of the mouth Drink plenty of fluids. Take a probiotic daily x 2 weeks. PLEASE CALL YOUR PRIMARY CARE PHYSICIAN OR RETURN TO THE ER IF WITH WORSENING OF SYMPTOMS, INCLUDING facial swelling, pain, warmth, fever/chills, weakness, etc. FOLLOW UP WITH PRIMARY CARE PHYSICIAN OUTLINED ABOVE. Total Time Total Time Spent Total Time Spent (In Minutes): >30 minutes
== END 2022-04-04 12:10 | disposition home health service (06) | DRG 603 ==
LOC: ED 12:55 → 2N 19:12 → SUATTDRO 19:12 → 2N 20:20

== ENCOUNTER 2022-05-09 16:16 | Inpatient (IN) ==
[2022-05-09 17:28] LABS: Partial Thromboplastin Ratio 1.2; Prothrombin Time 10.8 Seconds (9.0-12.0)
--- NOTE | 2022-05-09 17:34 | CT Scan Report ---
CT head/brain wo con CLINICAL HISTORY: Stroke Alert Technique: Contiguous axial CT images of the head were acquired from the base of the skull to the zohra nacho without intravenous contrast administration. Images were viewed in brain, subdural and bone windo ws. Automated dose lowering techniques and/or adjustment according to patient size were utilized for this exam. Comparison: None available at the time of this dictation. Findings: The ventricles, basal cisterns, and cerebral sulci are normal. There is no acute intracranial hemorrh age or evidence of acute territorial infarction. Neither mass effect, shift of the midline structures , nor abnormal extra-axial fluid collections are shown. Right maxillary sinus disease is noted. The orbits appear normal. There are no acute fractures of th e calvaria or scalp swelling. Impression: 1. No acute intracranial hemorrhage, no evidence of acute territorial infarction or other acute intr acranial disease process. 2. Right maxillary sinus disease. ACT 112: Negative or not required by law. Electronically signed by: Mateo Ferreira M.D. 05/09/2022 5:32 PM
[2022-05-09 17:35] LABS: Albumin Globulin Ratio 0.7 (0.9-2); Albumin Level 3.8 gm/dl (3.4-5.0); BUN Creatinine Ratio 15.6 (10-20); Bilirubin,Total 0.4 mg/dl (0.2-1.0); Calcium 8.6 mg/dl (8.5-10.1); Creatinine Clr Calc Pharmacy 59.8 ml/min; Est GFR (African American) 68.5 ml/min; Est GFR (Non-African American) 59.1 ml/min; Globulin 5.2 gm/dl (2.5-4.0); Magnesium 1.6 mg/dl (1.7-2.4); Potassium 4.3 mmol/L (3.5-5.1)
[2022-05-09 18:06] LABS: Lyme Ab IgM w/WB Rflx Negative (Negative)
--- NOTE | 2022-05-09 18:06 | Emergency Department Note ---
Impression & Plan Acute hyponatremia ADMIT ED Provider Note HPI: The patient is a 71-year-old female who presents the emergency department with a chief complaint of left-sided facial droop and generalized weakness that has been ongoing since she woke up this morning. She presents with her son at the bedside to assist with history, states that his mother has seemed weaker than usual, she has had some left-sided facial droop which includes her forehead, left eye, and left side of her mouth. She has had some difficulty closing her left eye. On arrival here to the ED the patient does not exhibit any focal deficits aside from the left-sided facial droop which is mild to moderate. She is hemodynamically stable and otherwise in no acute distress on my initial assessment. ROS: -Neuro: Left-sided facial droop -General: Generalized weakness *10 point review systems was conducted and is otherwise negative unless stated above *Outpatient medications and allergy history reviewed PE: General: Alert HEENT: Normocephalic, trachea midline, there is mild paralysis of the left side of face including the left forehead, left eyelid, and left-sided facial droop Eyes: Extraocular eye movement is intact, no scleral erythema Pulmonary: Clear to auscultation bilaterally, no wheezing Cardio: Regular rate and rhythm GI: Abdomen is soft, nontender : No suprapubic tenderness MSK: No evidence of trauma or malformation of the extremities, no edema Skin: No evidence of rash Neuro: Alert, left-sided motor deficits as noted above, patient does not have any drift of the upper extremities or lower extremities with testing against gravity, equal bilateral appellate law clerk strength is appreciated Psychiatric: Cooperative monitoring coordinator: - An order was placed for continuous cardiac monitoring - Patient was noted to be in sinus rhythm with a rate of 90 EKG: Rate: 97 Rhythm: Normal sinus rhythm Intervals: Within normal limits ST changes: No ST elevation Time: 1654 Interventions provided in ED: -Prednisone, Valtrex Medical Decision Making: Patient presented to the emergency department with generalized weakness, she was noted to have some complete left-sided facial droop since she woke up this morning. Physical examination is more consistent with a Sarabia's palsy as opposed to stroke, CT imaging of the head is reassuring, I would not consider the patient a stroke alert given that she is outside the window for lysis and stroke is not the most likely diagnosis given complete motor deficits on the left side of the face including the forehead, left eye, and left lower face. Lab work was obtained and is concerning for hyponatremia 125, patient does have some history of this but recent lab work obtained as an outpatient showed a sodium of 134 therefore this is acute. She has had some generalized weakness, no reported seizure-like activity. Magnesium is also low at 1.6. This will be repleted IV. Chest x-ray does not show any obvious pneumonia, urinalysis does not show any obvious infection. Patient does have a history of CLL and white blood cell count is elevated beyond normal baseline at 33,000, blood cultures were ordered however we will hold on broad-spectrum antibiotics at this time given lack of any source of infection. I discussed the above finding with the on-call hospitalist for [facility], Dr. Barreto, who was in agreement to admit the patient for further management of hyponatremia, generalized weakness, and Sarabia palsy. Patient was initiated on prednisone and Valtrex for Saraiba's palsy, patient and her son at the bedside are in agreement to admission and the patient was admitted in stable condition. Diagnosis: 1. Hyponatremia, acute 2. Hypomagnesemia 3. Sarabia palsy, left-sided Disposition: Admission Irving Beach DO Emergency Medicine Past Med/Surg History Medical History (Updated 05/09/22 @ 19:40 by Irving Beach DO) Arthritis Chronic lymphocytic leukemia CKD (chronic kidney disease), stage III DM (diabetes mellitus) Controlled and stable GERD (gastroesophageal reflux disease) High cholesterol History of chronic lymphocytic leukemia Per records HTN (hypertension) Hypothyroid Secondary to thyroidectomy - no thyroid cancer per patient Surgical History History of colonoscopy History of esophagogastroduodenoscopy (EGD) History of tubal ligation Hx of thyroidectomy Family History Sister Breast cancer Social History Smoking Status: Never smoker Second Hand Exposure: No; Hx Alcohol Use: No Hx Substance Use: No Preferred Language: [place] Communication Ability: Impaired Communication Tools: IPad, Letter Board and Other Visual Impairment: No Limitations Tierce Filler Required: Yes Beliefs That Will Affect Care: Christian marital status: / Current Living Situation: Family Feels Safe at Home: Yes Assistive Devices: None Allergies Allergies Allergy/AdvReac Type Severity Reaction Status Date / Time Pork/Porcine Containing Allergy Unknown Unknown Verified 04/02/22 14:58 Products Home Meds Home Medications Medication Instructions Recorded Confirmed atorvastatin 40 mg tablet 40 mg PO QAM 05/08/19 04/01/22 levothyroxine 100 mcg tablet 100 mcg PO DAILYBB 05/08/19 04/01/22 metoprolol succinate 25 mg 25 mg PO QAM 05/08/19 04/01/22 tablet,extended release 24 hr pantoprazole 40 mg tablet,delayed 40 mg PO QAM 11/30/19 04/01/22 release (Protonix) aspirin 81 mg tablet,delayed 81 mg PO DAILY 07/26/20 04/01/22 release (Shira Low Dose Aspirin) insulin glargine 100 unit/mL (3 32 unit subcut PM 07/26/20 04/01/22 mL) subcutaneous pen (Lantus Solostar U-100 Insulin) irbesartan 150 mg tablet 150 mg PO QAM 07/26/20 04/01/22 levothyroxine 50 mcg tablet 25 - 50 mcg PO UD 07/26/20 04/01/22 linagliptin 5 mg tablet (Tradjenta) 5 mg PO QAM 07/26/20 04/01/22 metformin 500 mg tablet,extended 1,000 mg PO BIDM 07/26/20 04/01/22 release 24 hr albuterol sulfate 90 mcg/actuation 2 puff inhalation QID PRN cough or 04/01/22 04/01/22 aerosol inhaler (Ventolin HFA) wheezing calcium acetate-magnesium carb 450 1 tab PO DAILY 04/01/22 04/01/22 mg-200 mg tablet cholecalciferol (vitamin D3) 125 125 mcg PO DAILY 04/01/22 04/01/22 mcg (5,000 unit) tablet (Vitamin D3) cyanocobalamin (vitamin B-12) 1,000 mcg IM .EVERY 3 MONTHS 04/01/22 04/01/22 1,000 mcg/mL injection solution diphenhydramine HCl 12.5 mg/5 mL 25 mg PO Q12 PRN allergy or itch 04/01/22 04/01/22 oral elixir fluticasone propionate 50 2 spray intranasal DAILY PRN as 04/01/22 04/01/22 mcg/actuation nasal directed spray,suspension [id number] C-Mn 500 1 cap PO DAILY 04/01/22 04/01/22 mg-400 mg capsule guaifenesin 600 mg tablet, 600 mg PO BID 04/01/22 04/01/22 extended release 12 hr ketotifen fumarate 0.025 % (0.035 1 drp OPL [facility] 04/01/22 04/01/22 %) eye drops loratadine 10 mg tablet 10 mg PO QAM 04/01/22 04/01/22 montelukast 10 mg tablet 10 mg PO HS 04/01/22 04/01/22 Results & Data (ED) Vital Signs Vital Signs - 24 hr 05/09/22 16:23 05/09/22 18:11 05/09/22 17:23 Temperature 36.0 C L Temperature Source Temporal Artery Scan Pulse Rate 102 H Pulse Rate [Apical] 88 90 Pulse Rhythm Regular Pulse Strength Normal Respiratory Rate 20 16 16 Respiratory Effort / Characteristics Non-Labored Spontaneous Non-Labored Non-Labored Spontaneous Respiratory Depth Normal Normal Normal Respiratory Pattern Regular Regular Blood Pressure 97/63 L Blood Pressure [Right Arm] 146/80 H 107/59 L Blood Pressure Mean 74 Blood Pressure Mean [Right Arm] 102 75 Blood Pressure Position Sitting Pulse Oximetry 95 97 98 Oxygen Delivery Method Room Air Room Air Room Air Sepsis Recent Fever Within 48 Hours No Sepsis New/Unexplained Change in Mental Status No Sepsis Action Taken by Nursing No Action Required Laboratory Data Result diagrams: 05/09/22 17:00 05/09/22 17:00 Lab Results 05/09/22 05/09/22 05/09/22 Range/Units 17:00 17:00 17:00 WBC 33.81 H* (4.8-10.8) K/ul RBC 4.61 (3.93-5.22) M/uL Hgb 12.4 (12.0-16.0) g/dl Hct 37.3 (34.1-44.9) % MCV 80.9 (80.0-100.0) fL MCH 26.9 (25.0-34.0) pg MCHC 33.2 (32.0-36.0) g/dL RDW Std Deviation 43.7 (36.4-46.3) fL RDW Coeff of Margaret 14.9 H (11.5-14.5) % Plt Count 506 H (130-400) K/uL MPV 9.3 L (9.4-12.3) fL PT 10.8 (9.0-12.0) Seconds INR 1.0 (0.9-1.1) APTT 32.0 H (21.0-31.0) Seconds PTT Ratio 1.2 Sodium 125 L (136-145) mmol/L Potassium 4.3 (3.5-5.1) mmol/L Chloride 91 L (98-107) mmol/L Carbon Dioxide 24 (21-32) mmol/L Anion Gap 10 (3-11) BUN 15 (6-23) mg/dl Creatinine 0.96 (0.6-1.2) mg/dl Est Cr Clr Drug Dosing 59.8 ml/min Est GFR ( Amer) 68.5 ml/min Est GFR (Non-Af Amer) 59.1 ml/min BUN/Creatinine Ratio 15.6 (10-20) Glucose 139 H (70-99(Fasting)) mg/dl Calcium 8.6 (8.5-10.1) mg/dl Magnesium 1.6 L (1.7-2.4) mg/dl Total Bilirubin 0.4 (0.2-1.0) mg/dl AST 13 (13-39) U/L ALT 10 (7-52) U/L Alkaline Phosphatase 67 (34-104) U/L Total Protein 9.0 H (6.0-8.3) gm/dl Albumin 3.8 (3.4-5.0) gm/dl Globulin 5.2 H (2.5-4.0) gm/dl Albumin/Globulin Ratio 0.7 L (0.9-2) Urine Color Urine Appearance (Clear) Urine pH (4.5-7.5) Ur Specific [place] (1.000-1.030) Urine Protein (Negative) Urine Glucose (UA) (Negative) Urine Ketones (Negative) Urine Blood (Negative) Urine Nitrite (Negative) Urine Bilirubin (Negative) Urine Urobilinogen (Negative) Ur Leukocyte Esterase (Negative) Urine WBC (Auto) (0-5) /hpf Urine RBC (Auto) (0-4) /hpf U Hyaline Cast (Auto) (0-5) /lpf U Epithel Cells (Auto) (0-5) /lpf Urine Bacteria (Auto) (Negative) Lyme Disease IgG Ab (Negative) Lyme Disease IgM Ab (Negative) 05/09/22 05/09/22 Range/Units 17:00 18:44 WBC (4.8-10.8) K/ul RBC (3.93-5.22) M/uL Hgb (12.0-16.0) g/dl Hct (34.1-44.9) % MCV (80.0-100.0) fL MCH (25.0-34.0) pg MCHC (32.0-36.0) g/dL RDW Std Deviation (36.4-46.3) fL RDW Coeff of Margaret (11.5-14.5) % Plt Count (130-400) K/uL MPV (9.4-12.3) fL PT (9.0-12.0) Seconds INR (0.9-1.1) APTT (21.0-31.0) Seconds PTT Ratio Sodium (136-145) mmol/L Potassium (3.5-5.1) mmol/L Chloride (98-107) mmol/L Carbon Dioxide (21-32) mmol/L Anion Gap (3-11) BUN (6-23) mg/dl Creatinine (0.6-1.2) mg/dl Est Cr Clr Drug Dosing ml/min Est GFR ( Amer) ml/min Est GFR (Non-Af Amer) ml/min BUN/Creatinine Ratio (10-20) Glucose (70-99(Fasting)) mg/dl Calcium (8.5-10.1) mg/dl Magnesium (1.7-2.4) mg/dl Total Bilirubin (0.2-1.0) mg/dl AST (13-39) U/L ALT (7-52) U/L Alkaline Phosphatase (34-104) U/L Total Protein (6.0-8.3) gm/dl Albumin (3.4-5.0) gm/dl Globulin (2.5-4.0) gm/dl Albumin/Globulin Ratio (0.9-2) Urine Color Yellow Urine Appearance Clear (Clear) Urine pH 5.5 (4.5-7.5) Ur Specific [place] 1.014 (1.000-1.030) Urine Protein Negative (Negative) Urine Glucose (UA) Negative (Negative) Urine Ketones Trace H (Negative) Urine Blood Negative (Negative) Urine Nitrite Negative (Negative) Urine Bilirubin Negative (Negative) Urine Urobilinogen Negative (Negative) Ur Leukocyte Esterase 2+ H (Negative) Urine WBC (Auto) 10-30 H (0-5) /hpf Urine RBC (Auto) 0-4 (0-4) /hpf U Hyaline Cast (Auto) 1-5 (0-5) /lpf U Epithel Cells (Auto) >30 H (0-5) /lpf Urine Bacteria (Auto) Negative (Negative) Lyme Disease IgG Ab Positive A (Negative) Lyme Disease IgM Ab Negative (Negative) Imaging Data Radiologist's Impression: Head CT 05/09/22 16:29 CT head/brain wo con CLINICAL HISTORY: Stroke Alert Technique: Contiguous axial CT images of the head were acquired from the base of the skull to the vertex without intravenous contrast administration. Images were viewed in brain, subdural and bone windows. Automated dose lowering techniques and/or adjustment according to patient size were utilized for this exam. Comparison: None available at the time of this dictation. Findings: The ventricles, basal cisterns, and cerebral sulci are normal. There is no acute intracranial hemorrhage or evidence of acute territorial infarction. Neither mass effect, shift of the midline structures, nor abnormal extra-axial fluid collections are shown. Right maxillary sinus disease is noted. The orbits appear normal. There are no acute fractures of the calvaria or scalp swelling. Impression: 1. No acute intracranial hemorrhage, no evidence of acute territorial infarction or other acute intracranial disease process. 2. Right maxillary sinus disease. ACT 112: Negative or not required by law. Electronically signed by: Mateo Ferreira M.D. 05/09/2022 5:32 PM Chest X-Ray 05/09/22 18:23 XR chest 1V portable CLINICAL HISTORY: Weakness, leukocytosis TECHNIQUE: Single frontal radiograph of the chest was obtained. Comparison: Comparison is made to chest radiograph 04/02/2022 FINDINGS: No lines and tubes are seen. Calcified aortic knob is seen. The lungs are clear. No evidence of pleural effusion or pneumothorax. IMPRESSION: No acute chest disease. ACT 112: Negative or not required by law. Electronically signed by: Mateo Ferreira M.D. 05/09/2022 7:31 PM Discharge Plan Visit Data Chief Complaint: Sarabia's Palsy Symptoms Stated Complaint: VOMITING, R SIDE OF FACE DROOPING ED Provider: Irving Beach Discharge Problem: Acute hyponatremia Forms Stand Alone Forms: [facility] Prescriptions Prescriptions: No Action pantoprazole [Protonix] 40 mg tablet,delayed release (DR/EC) 40 mg PO QAM atorvastatin 40 mg tablet 40 mg PO QAM metoprolol succinate 25 mg tablet extended release 24 hr 25 mg PO QAM levothyroxine 100 mcg tablet 100 mcg PO DAILYBB Tradjenta 5 mg tablet 5 mg PO QAM metformin 500 mg tablet extended release 24 hr 1,000 mg PO BIDM aspirin [Shira Low Dose Aspirin] 81 mg Tablet,Delayed Release (Dr/Ec) 81 mg PO DAILY irbesartan 150 mg tablet 150 mg PO QAM levothyroxine 50 mcg tablet 25 - 50 mcg PO UD Rx Instructions: take 1 tablet along with 100 mcg on WEDNESDAY. take 0.5 tablet along with 100 mcg all other days.. take at least 30 min prior to breakfast insulin glargine [Lantus Solostar U-100 Insulin] 100 unit/mL (3 mL) insulin pen 32 unit SUBCUT PM calcium acetate-magnesium carb 450-200 mg Tablet 1 tab PO DAILY albuterol sulfate [Ventolin HFA] 90 mcg/actuation Hfa Aerosol Inhaler 2 puff INHALATION QID PRN (Reason: cough or wheezing) guaifenesin 600 mg Tablet Extended Release 12hr 600 mg PO BID montelukast 10 mg Tablet 10 mg PO HS loratadine 10 mg Tablet 10 mg PO QAM cholecalciferol (vitamin D3) [Vitamin D3] 125 mcg (5,000 unit) Tablet 125 mcg PO DAILY cyanocobalamin (vitamin B-12) 1,000 mcg/mL Solution 1,000 mcg IM .EVERY 3 MONTHS [id number] C-Mn 500-400 mg Capsule 1 cap PO DAILY diphenhydramine HCl 12.5 mg/5 mL Elixir 25 mg PO Q12 PRN (Reason: allergy or itch) ketotifen fumarate 0.025 % (0.035 %) Drops 1 drp OPL [facility] fluticasone propionate 50 mcg/actuation [place],Suspension 2 spray INTRANASAL DAILY PRN (Reason: as directed) Rx Instructions: administer into each nostril Referrals Referrals: Yolis Loja MD [Primary Care Provider] -
[2022-05-09 18:07] LABS: Hematocrit (blood only) 37.3 % (34.1-44.9); Hemoglobin 12.4 g/dl (12.0-16.0); Mean Corpuscular Hemoglobin 26.9 pg (25.0-34.0); Mean Corpuscular Hgb Conc 33.2 g/dL (32.0-36.0); Mean Corpuscular Volume 80.9 fL (80.0-100.0); Mean Platelet Volume 9.3 fL (9.4-12.3); Platelet Count 506 K/uL (130-400); RDW Coefficient of Variation 14.9 % (11.5-14.5); RDW Standard Deviation 43.7 fL (36.4-46.3); Red Blood Count 4.61 M/uL (3.93-5.22); White Blood Count 33.81 K/ul (4.8-10.8)
[2022-05-09 19:02] LABS: Appearance Urine Clear (Clear); Bacteria Urine Automated Negative (Negative); Bilirubin Urine Negative (Negative); Blood Urine Negative (Negative); Color Urine Yellow; Epithelial Cell Urine Auto >30 /lpf (0-5); Glucose Urine UA Negative (Negative); Ketones Urine Trace (Negative); Leukocyte Esterase Urine 2+ (Negative); Nitrite Urine Negative (Negative); Protein Urine Negative (Negative); RBC Urine Automated 0-4 /hpf (0-4); Specific Gravity Urine 1.014 (1.000-1.030); Urobilinogen Urine Negative (Negative); pH Urine 5.5 (4.5-7.5)
[2022-05-09 19:11] LABS: Lyme Ab IgG w/WB Rflx Positive (Negative)
[2022-05-09] MEDS ORDERED: valACYclovir HCL 500 MG TABLET PO ONE (19:31)
--- NOTE | 2022-05-09 19:32 | XRay Report ---
XR chest 1V portable CLINICAL HISTORY: Weakness, leukocytosis TECHNIQUE: Single frontal radiograph of the chest was obtained. Comparison: Comparison is made to chest radiograph 04/02/2022 FINDINGS: No lines and tubes are seen. Calcified aortic knob is seen. The lungs are clear. No evidence of pleur al effusion or pneumothorax. IMPRESSION: No acute chest disease. ACT 112: Negative or not required by law. Electronically signed by: Mateo Ferreira M.D. 05/09/2022 7:31 PM
[2022-05-09] MEDS ORDERED: predniSONE 20 MG TAB PO STA (19:33)
[2022-05-09 19:42] LABS: Influenza A virus by PCR Negative (Neg); Influenza B virus by PCR Negative (Neg); RSV by PCR Negative (Neg); SARS CoV2 RNA(COVID-19)Cepheid NEGATIVE (Negative)
[2022-05-09] MEDS ORDERED: SODIUM CHLORIDE 0.9% 500 ML IV ONE (19:42)
[2022-05-09] MEDS ORDERED: MAGNESIUM SULFATE / D5W 1 GM/100 ML BAG IV STA (19:44)
--- NOTE | 2022-05-09 20:57 | History & Physical Report ---
Date of Service May 09, 2022 Assessment & Plan (1) Acute hyponatremia: Plan: Acute on chronic hyponatremia Possible underlying SIADH with hypovolemic component given ketonuria Sarabia's palsy left, (grade 3/moderate dysfunction on House-Brackman scale) hypertension, slightly elevated hyperlipidemia on statin Rx DM 2 insulin requiring, well-controlled as of recent hemoglobin A1c of 6.08 February 2022 hypothyroidism, euthyroid as of today's states CLL, under observation by [facility] oncologist Medical telemetry Careful correction of sodium Fluid restriction given possible SIADH component Hyponatremia work-up May benefit from Nephrology evaluation. Prednisone course for patient's Sarabia's palsy. Antiviral not indicated given moderate dysfunction. Topical eye care Basal bolus insulin, ISS BG goal 1 10-1 40, carb count coverage PT OT eval DVT prophylaxis. Lovenox subcu Full code Patient son requesting updates from providers. Mr. Bhaskar Haque, contact #[phone]. Text document was generated using [employer] voice recognition software. It may contain grammatical or spelling errors. Kindly contact undersigned for clarification of any documentation item in question. History of Present Illness Chief Complaint: Facial droop, weakness as per family Primary Care Provider: Yolis Loja MD History obtained from patient, family, and records. History somewhat limited from patient secondary to language barrier. Medical history significant for hypertension, hyperlipidemia, DM 2 insulin requiring, postsurgical hypothyroidism, CLL, chronic hyponatremia. Last confinement last month or face cellulitis improved with antibiotic Rx. 2 weeks ago, patient noted cough productive of yellow sputum associated with cold symptoms. Patient drinking a lot of water, more than 2 L a day as per son for the throat/cough discomfort. Symptoms improved after doxycycline course prescribed by PCP for sinusitis. 1 side of patient's face noted to be droopy today as per son. Patient weaker than usual. No focal arm or leg weakness. Some nausea with emesis episode. Patient denies headache, abdominal pain, chest pain, SOB. Patient brought to the ER for evaluation. Stroke alert called upon arrival at the ER. 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 No prior episodes as per son. 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, lives with son Allergies Allergy/AdvReac Type Severity Reaction Status Date / Time Pork/Porcine Containing Allergy Unknown Unknown Verified 05/09/22 20:54 Products Home Medications Medication Instructions Recorded Confirmed Type atorvastatin 40 mg tablet 40 mg PO QAM 05/08/19 05/09/22 History metoprolol succinate 25 mg 25 mg PO QAM 05/08/19 05/09/22 History tablet,extended release 24 hr pantoprazole 40 mg tablet,delayed 40 mg PO QAM 11/30/19 05/09/22 History release (Protonix) aspirin 81 mg tablet,delayed 81 mg PO DAILY 07/26/20 05/09/22 History release (Shira Low Dose Aspirin) insulin glargine 100 unit/mL (3 32 unit subcut PM 07/26/20 05/09/22 History mL) subcutaneous pen (Lantus Solostar U-100 Insulin) irbesartan 150 mg tablet 150 mg PO QAM 07/26/20 05/09/22 History metformin 500 mg tablet,extended 1,000 mg PO QAM 07/26/20 05/09/22 History release 24 hr albuterol sulfate 90 mcg/actuation 2 puff inhalation QID PRN cough or 04/01/22 05/09/22 History aerosol inhaler (Ventolin HFA) wheezing cholecalciferol (vitamin D3) 125 125 mcg PO DAILY 04/01/22 05/09/22 History mcg (5,000 unit) tablet (Vitamin D3) cyanocobalamin (vitamin B-12) 1,000 mcg IM .EVERY 3 MONTHS 04/01/22 05/09/22 History 1,000 mcg/mL injection solution diphenhydramine HCl 12.5 mg/5 mL 25 mg PO Q12 PRN allergy or itch 04/01/22 05/09/22 History oral elixir fluticasone propionate 50 2 spray intranasal DAILY PRN 04/01/22 05/09/22 History mcg/actuation nasal Congestion spray,suspension wkiijzejjeh-disuyebnd-olh C-Mn 500 1 cap PO DAILY 04/01/22 05/09/22 History mg-400 mg capsule ketotifen fumarate 0.025 % (0.035 1 drp OPL [facility] 04/01/22 05/09/22 History %) eye drops loratadine 10 mg tablet 10 mg PO QAM 04/01/22 05/09/22 History montelukast 10 mg tablet 10 mg PO HS 04/01/22 05/09/22 History calcium acetate-magnesium carb 1 tab PO DAILY 05/09/22 05/09/22 History doxycycline hyclate 100 mg capsule 100 mg PO BID 05/09/22 05/09/22 History levothyroxine 125 mcg tablet 125 mcg PO DAILYBB 05/09/22 05/09/22 History linagliptin 5 mg tablet (Tradjenta) 5 mg PO QAM 05/09/22 05/09/22 History metformin 500 mg tablet,extended 500 mg PO .EVENING MEAL 05/09/22 05/09/22 History release 24 hr tacrolimus 0.1 % topical ointment 1 applic topical BID 05/09/22 05/09/22 History Past Med/Surg History Medical History (Updated 05/09/22 @ 19:40 by Irving Beach DO) Arthritis Chronic lymphocytic leukemia CKD (chronic kidney disease), stage III DM (diabetes mellitus) Controlled and stable GERD (gastroesophageal reflux disease) High cholesterol History of chronic lymphocytic leukemia Per records HTN (hypertension) Hypothyroid Secondary to thyroidectomy - no thyroid cancer per patient Surgical History History of colonoscopy History of esophagogastroduodenoscopy (EGD) History of tubal ligation Hx of thyroidectomy Family History Sister Breast cancer Social History Smoking Status: Never smoker Second Hand Exposure: No; Hx Alcohol Use: No Hx Substance Use: No Preferred Language: Swedish Communication Ability: Impaired Communication Tools: IPad, Letter Board and Other Visual Impairment: No Limitations Medical Staff Coordinator Required: Yes Beliefs That Will Affect Care: Synagogue Synagogue Beliefs: No pork or gelatin marital status: / Current Living Situation: Family Current Living Situation Comment: Family Other Information That Helps Us Care for You: No Feels Safe at Home: Yes Assistive Devices: None Review of Systems Review of Systems: Could not be reliably obtained secondary to language barrier Physical Exam Physical Exam: GENERAL: Comfortable, pleasant, no respiratory distress SKIN: Normal color, warm HEENT: [place] palpebral conjunctivae, no ptosis, left facial droop affecting the whole half with complete eye closure, dry buccal mucosa NECK : Supple, no tenderness CHEST : CTA, no tenderness HEART : RRR, no obvious murmurs ABDOMEN: Some distention, nontender EXTREMITIES : Minimal LE swelling, no LE tenderness, no other conspicuous defo rmities noted NEUROLOGIC : Coherent, left facial droop, gait and stance not assessed Results & Data Results & Data ([facility]) Vital Signs (Past 12 Hours) Vital Signs Temp Pulse Pulse Resp BP BP Pulse Ox 05/09/22 20:00 36.6 C 80 20 131/79 95 05/09/22 17:23 90 16 107/59 L 98 05/09/22 18:11 88 16 146/80 H 97 05/09/22 16:23 36.0 C L 102 H 20 97/63 L 95 O2 Del Method 05/09/22 20:00 Room Air 05/09/22 17:23 Room Air 05/09/22 18:11 Room Air 05/09/22 16:23 Room Air Laboratory Results Laboratory Results WBC 33.81 K/ul (4.8-10.8) H* 05/09/22 17:00 RBC 4.61 M/uL (3.93-5.22) 05/09/22 17:00 Hgb 12.4 g/dl (12.0-16.0) 05/09/22 17:00 Hct 37.3 % (34.1-44.9) 05/09/22 17:00 MCV 80.9 fL (80.0-100.0) 05/09/22 17:00 MCH 26.9 pg (25.0-34.0) 05/09/22 17:00 MCHC 33.2 g/dL (32.0-36.0) 05/09/22 17:00 RDW Std Deviation 43.7 fL (36.4-46.3) 05/09/22 17:00 RDW Coeff of Margaret 14.9 % (11.5-14.5) H 05/09/22 17:00 Plt Count 506 K/uL (130-400) H 05/09/22 17:00 MPV 9.3 fL (9.4-12.3) L 05/09/22 17:00 PT 10.8 Seconds (9.0-12.0) 05/09/22 17:00 INR 1.0 (0.9-1.1) 05/09/22 17:00 APTT 32.0 Seconds (21.0-31.0) H 05/09/22 17:00 PTT Ratio 1.2 05/09/22 17:00 Sodium 125 mmol/L (136-145) L 05/09/22 17:00 Potassium 4.3 mmol/L (3.5-5.1) 05/09/22 17:00 Chloride 91 mmol/L (98-107) L 05/09/22 17:00 Carbon Dioxide 24 mmol/L (21-32) 05/09/22 17:00 Anion Gap 10 (3-11) 05/09/22 17:00 BUN 15 mg/dl (6-23) 05/09/22 17:00 Creatinine 0.96 mg/dl (0.6-1.2) 05/09/22 17:00 Est Cr Clr Drug Dosing 59.8 ml/min 05/09/22 17:00 Est GFR ( Amer) 68.5 ml/min 05/09/22 17:00 Est GFR (Non-Af Amer) 59.1 ml/min 05/09/22 17:00 BUN/Creatinine Ratio 15.6 (10-20) 05/09/22 17:00 Glucose 139 mg/dl (70-99(Fasting)) H 05/09/22 17:00 Osmolality 272 mOsm/kg (280-300) L 05/09/22 17:00 Calcium 8.6 mg/dl (8.5-10.1) 05/09/22 17:00 Magnesium 1.6 mg/dl (1.7-2.4) L 05/09/22 17:00 Total Bilirubin 0.4 mg/dl (0.2-1.0) 05/09/22 17:00 AST 13 U/L (13-39) 05/09/22 17:00 ALT 10 U/L (7-52) 05/09/22 17:00 Alkaline Phosphatase 67 U/L (34-104) 05/09/22 17:00 Total Protein 9.0 gm/dl (6.0-8.3) H 05/09/22 17:00 Albumin 3.8 gm/dl (3.4-5.0) 05/09/22 17:00 Globulin 5.2 gm/dl (2.5-4.0) H 05/09/22 17:00 Albumin/Globulin Ratio 0.7 (0.9-2) L 05/09/22 17:00 Procalcitonin < 0.05 ng/ml (0-0.5) 05/09/22 17:00 TSH 2.672 uIu/ml (0.300-4.500) 05/09/22 17:00 Urine Color Yellow 05/09/22 18:44 Urine Appearance Clear (Clear) 05/09/22 18:44 Urine pH 5.5 (4.5-7.5) 05/09/22 18:44 Ur Specific [place] 1.014 (1.000-1.030) 05/09/22 18:44 Urine Protein Negative (Negative) 05/09/22 18:44 Urine Glucose (UA) Negative (Negative) 05/09/22 18:44 Urine Ketones Trace (Negative) H 05/09/22 18:44 Urine Blood Negative (Negative) 05/09/22 18:44 Urine Nitrite Negative (Negative) 05/09/22 18:44 Urine Bilirubin Negative (Negative) 05/09/22 18:44 Urine Urobilinogen Negative (Negative) 05/09/22 18:44 Ur Leukocyte Esterase 2+ (Negative) H 05/09/22 18:44 Urine WBC (Auto) 10-30 /hpf (0-5) H 05/09/22 18:44 Urine RBC (Auto) 0-4 /hpf (0-4) 05/09/22 18:44 U Hyaline Cast (Auto) 1-5 /lpf (0-5) 05/09/22 18:44 U Epithel Cells (Auto) >30 /lpf (0-5) H 05/09/22 18:44 Urine Bacteria (Auto) Negative (Negative) 05/09/22 18:44 Urine Osmolality 351 mOsm/kg (500-800) L 05/09/22 18:44 Ur Random Sodium 19 mmol/L 05/09/22 18:44 Lyme Disease IgG Ab Positive (Negative) A 05/09/22 17:00 Lyme Disease IgM Ab Negative (Negative) 05/09/22 17:00 SARS-CoV-2 (PCR) NEGATIVE (Negative) 05/09/22 18:44 Influenza Type A (PCR) Negative (Neg) 05/09/22 18:44 Influenza Type B (PCR) Negative (Neg) 05/09/22 18:44 RSV (RT-PCR) Negative (Neg) 05/09/22 18:[address] 05/09/22 16:29 CT head/brain wo con CLINICAL HISTORY: Stroke Alert Technique: Contiguous axial CT images of the head were acquired from the base of the skull to the vertex without intravenous contrast administration. Images were viewed in brain, subdural and bone windows. Automated dose lowering techniques and/or adjustment according to patient size were utilized for this exam. Comparison: None available at the time of this dictation. Findings: The ventricles, basal cisterns, and cerebral sulci are normal. There is no acute intracranial hemorrhage or evidence of acute territorial infarction. Neither mass effect, shift of the midline structures, nor abnormal extra-axial fluid collections are shown. Right maxillary sinus disease is noted. The orbits appear normal. There are no acute fractures of the calvaria or scalp swelling. Impression: 1. No acute intracranial hemorrhage, no evidence of acute territorial infarction or other acute intracranial disease process. 2. Right maxillary sinus disease. ACT 112: Negative or not required by law. Electronically signed by: Mateo Ferreira M.D. 05/09/2022 5:32 PM Chest X-Ray 05/09/22 18:23 XR chest 1V portable CLINICAL HISTORY: Weakness, leukocytosis TECHNIQUE: Single frontal radiograph of the chest was obtained. Comparison: Comparison is made to chest radiograph 04/02/2022 FINDINGS: No lines and tubes are seen. Calcified aortic knob is seen. The lungs are clear. No evidence of pleural effusion or pneumothorax. IMPRESSION: No acute chest disease. ACT 112: Negative or not required by law. Electronically signed by: Mateo Ferreira M.D. 05/09/2022 7:31 PM Diagnostic Findings EKG as per my interpretation :Rate 95, NSR, normal axis, ischemia
[2022-05-09] MEDS ORDERED: LANTUS PER UNIT CHARGE SQ SCH (22:59)
[2022-05-09] MEDS ORDERED: FLUTICASONE PROPIONATE NA SPR 16 GM BTL PRN (22:59)
[2022-05-09] MEDS ORDERED: oxyCODONE HCL IR 5 MG TAB (IMMEDIATE RELEASE) PO PRN (22:59)
[2022-05-09] MEDS ORDERED: GLUCOSE 10 TAB/TUBE PO PRN (22:59)
[2022-05-09] MEDS ORDERED: GLUCAGON FOR INJ 1 MG VIAL SQ PRN (22:59)
[2022-05-09] MEDS ORDERED: CARBOHYDRATES FOR HYPOGLYCEMIA PO PRN (22:59)
[2022-05-09] MEDS ORDERED: PROMETHAZINE HCL 12.5 MG in SODIUM CHLORIDE 0.9% 50 ML IV PRN (22:59)
[2022-05-09] MEDS ORDERED: GLUCOSE 40% GEL 15 GM TUBE PO PRN (22:59)
[2022-05-09] MEDS ORDERED: DEXTROSE 50% 50 ML SYRINGE IV PRN (22:59)
[2022-05-09] MEDS: INSULIN ASPART PER UNIT SC SCH (23:25)
[2022-05-10] MEDS: ARTIFICIAL TEARS OPL SCH ×10 (00:20→22:27)
[2022-05-10] MEDS: [UNRECOGNIZED DRUG - REMARK] SCH ×4 (01:11→23:33)
[2022-05-10] MEDS ORDERED: Flu Vaccine-High Dose (Fluzone-HD) PF 65+ 0.7mL SYR IM ONE (02:45)
[2022-05-10 05:44] LABS: Hematocrit (blood only) 33.2 % (34.1-44.9); Hemoglobin 11.3 g/dl (12.0-16.0); Mean Corpuscular Volume 79.2 fL (80.0-100.0); Mean Platelet Volume 9.4 fL (9.4-12.3); Platelet Count 445 K/uL (130-400); RDW Coefficient of Variation 14.8 % (11.5-14.5); RDW Standard Deviation 42.5 fL (36.4-46.3); Red Blood Count 4.19 M/uL (3.93-5.22); White Blood Count 28.26 K/ul (4.8-10.8)
[2022-05-10 05:56] LABS: BUN Creatinine Ratio 19.7 (10-20); Calcium 8.4 mg/dl (8.5-10.1); Creatinine Clr Calc Pharmacy 75.6 ml/min; Est GFR (African American) 90.8 ml/min; Est GFR (Non-African American) 78.4 ml/min; Potassium 4.4 mmol/L (3.5-5.1)
[2022-05-10 06:06] LABS: Basophils # (auto) 0.09 K/uL (0-0.2); Basophils % (auto) 0.3 %; Echinocytes 1+; Eosinophils # (auto) 0.05 K/uL (0-0.50); Eosinophils % (auto) 0.2 %; Immature Granulocytes # (auto) 0.44 K/uL (0.00-0.02); Immature Granulocytes % (auto) 1.6 %; Lymphocytes # (auto) 14.25 K/uL (1.2-3.4); Lymphocytes % (auto) 50.4 %; Monocytes # (auto) 1.79 K/uL (0.24-0.82); Monocytes % (auto) 6.3 %; Neutrophils # (auto) 11.64 K/uL (1.4-6.5); Neutrophils % (auto) 41.2 %
[2022-05-10] MEDS: LEVOTHYROXINE SODIUM 125 MCG TABLET PO SCH (06:17)
[2022-05-10] MEDS ORDERED: SODIUM CHLORIDE 0.9% 1000ML 1,000 ML IV ONE ×2 (06:53→19:34)
[2022-05-10] MEDS ORDERED: PHARMACY GLYCEMIC MGMT CONSULT PRN (07:33)
[2022-05-10] MEDS: ENOXAPARIN INJ 40 MG/0.4 ML SYR SQ SCH (08:27)
[2022-05-10] MEDS: LORATADINE 10 MG TAB PO SCH (08:28)
[2022-05-10] MEDS: ATORVASTATIN 40 MG TAB PO SCH (08:28)
[2022-05-10] MEDS: PANTOprazole 40 MG TAB PO SCH (08:28)
[2022-05-10] MEDS: ASPIRIN 81 MG ECTAB PO SCH (08:28)
[2022-05-10] MEDS: IRBESARTAN 150 MG TAB PO SCH (08:28)
[2022-05-10] MEDS: METOPROLOL SUCC 25MG EXT REL TAB PO SCH (08:28)
[2022-05-10] MEDS: INSULIN ASPART PER UNIT SC SCH ×4 (08:34→21:34)
[2022-05-10] MEDS ORDERED: LANTUS PER UNIT CHARGE SQ ONE (08:45)
[2022-05-10] MEDS: predniSONE 20 MG TAB PO SCH (09:34)
--- NOTE | 2022-05-10 11:14 | Pharmacy Report ---
Pharmacy Glycemic Short Note 2 - Date of Service May 10, 2022 - Glycemic Short BSG Results (Last 24 hours): 05/09/22 05/09/22 05/10/22 17:00 22:58 04:46 Glucose 139 H 260 H POC Glucose 220 H 05/10/22 08:25 Glucose POC Glucose 271 H OUTPATIENT ANTIDIABETIC REGIMEN: * Lantus 32 units QPm, tradjenta, metformin * A1c 6.7% 02/23 per provider notes ASSESSMENT: * Patient admitted with facial droop, weakness, hyponatremia. Type 2 diabetic managed on insulin and oral agents at home. Pharmacy consulted for glycemic management as high dose steroids ordered on admission. * Patient received total of 24 units of insulin yesterday, of which 20 units were basal. Fasting BSG elevated at 271 mg/dL - likely related to prednisone dose given last evening of 80 mg x 1. * Prednisone 60 mg daily ordered ongoing, anticipate continued steroid induced hyperglycemia. Will give an additional 30 units of basal this AM (0.3 units/kg/dose) to help cover steroid effects * Will have scale for Lantus at HS in case BSGs remain elevated PLAN FOR INPATIENT GLYCEMIC CONTROL: * Hold outpatient oral diabetes medications * Basal insulin * Lantus 30 units x 1 * Lantus 0-10 units HS based upon BSG value * Bolus insulin * NovoLog per scale ACHS or Q6hrs while NPO * Goal Range: Low 110 mg/dL - High 140 mg/dL * Correction Factor: 20 mg/dL/unit * Nutritional / Prandial insulin per carb ratio of 1 unit per 6 grams CHO consumed
--- NOTE | 2022-05-10 11:55 | Hospitalist Progress Note ---
Date of Service May 10, 2022 Assessment & Plan (1) Acute hyponatremia: Plan: Acute on chronic hyponatremia Possible underlying SIADH with hypovolemic component given ketonuria Sodium improving from 125, 127 today Continue gentle IV NSS Repeat sodium at 12 noon and 6 PM Fluid restriction 2 L/day Sarabia's palsy left, (grade 3/moderate dysfunction on House-Brackman scale) Symptoms seems to be improving as per patient and her son Continue prednisone 60 mg p.o. daily Antiviral not indicated given moderate dysfunction. Topical eye care Monitor blood glucose levels hypertension Improved Monitor closely hyperlipidemia on statin Rx DM 2 insulin requiring, well-controlled as of recent hemoglobin A1c of 6.08 February 2022 We will consult pharmacy glycemic control service as patient is on high-dose prednisone hypothyroidism, euthyroid as of today's states CLL, under observation by [facility] oncologist PT OT eval DVT prophylaxis. Lovenox subcu Full code plan of care discussed with patient and her son over the phone in detail and at length all questions answered They are understanding, agreeable, comfortable with the plan of care Admission and Anticipated Discharge Date Admission Date: May 09, 2022 Subjective Follow-up for Sarabia's palsy, hyponatremia, etc. Seen resting in bed, comfortable, not distressed, sleeping but easily awakened Translation provided by patient's son over the phone Patient states she feels improved compared to yesterday No facial pain, no dysphagia But has some difficulty chewing secondary to facial droop on the right side Denies headache, dizziness, neurologic symptoms no chest pain, dyspnea, palpitations, dizziness Nasal congestion and cough also much better after course of antibiotics as an outpatient No other symptoms Review of Systems Review of Systems: all noted and negative except for above Physical Exam Physical Exam: General- oriented x 3, not in distress, speaks in sentences with no effort or accessory muscle use Face-mild right-sided facial droop Intact sensation 100% Eyes- anicteric Neck- no JVD Lungs- clear breath sounds bilaterally, no rales/wheezes Heart- normal rate, regular rhythm; no murmurs Abdomen- normal bowel sounds, nondistended, soft, nontender Extremities- no pretibial edema, no calf tenderness Neuro- alert, oriented x 3; no gross focal neurologic deficits Skin- warm & dry Results & Data Results & Data ([facility]) Vital Signs (Past 12 Hours) Vital Signs Temp Pulse Pulse Resp BP Pulse Ox O2 Del Method 05/10/22 11:23 36.8 C 88 20 118/74 92 Room Air 05/10/22 08:15 Room Air 05/10/22 07:33 36.4 C L 75 16 126/73 94 Room Air 05/10/22 07:07 74 05/10/22 04:53 76 05/10/22 03:24 36.4 C L 75 16 103/58 L 94 Room Air all noted and reviewed including below
--- NOTE | 2022-05-10 13:51 | Electrocardiogram Report ---
Test Reason : Blood Pressure : / mmHG Vent. Rate : 097 BPM Atrial Rate : 097 BPM P-R Int : 162 ms QRS Dur : 068 ms QT Int : 382 ms P-R-T Axes : 018 007 060 degrees QTc Int : 485 ms Normal sinus rhythm Poor R wave progression, consider anterior OH vs. lead placement vs. LVH Borderline ECG When compared with ECG of 20-NOV-2019 09:20, Vent. rate has increased BY 41 BPM Confirmed by Edgardo Ma ([id number]) on 05/10/2022 1:51:18 PM Referred By: REFERRED SELF Confirmed By:Edgardo Ma
[2022-05-10] MEDS ORDERED: MONTELUKAST SODIUM 10 MG TABLET PO SCH (21:00)
[2022-05-11] MEDS: ARTIFICIAL TEARS OPL SCH ×4 (05:01→12:40)
[2022-05-11] MEDS: LEVOTHYROXINE SODIUM 125 MCG TABLET PO SCH (05:54)
[2022-05-11] MEDS: [UNRECOGNIZED DRUG - REMARK] SCH (07:15)
[2022-05-11] MEDS ORDERED: LANTUS PER UNIT CHARGE SQ SCH (09:00)
[2022-05-11] MEDS: INSULIN ASPART PER UNIT SC SCH ×2 (09:02→12:39)
[2022-05-11] MEDS: METOPROLOL SUCC 25MG EXT REL TAB PO SCH (09:08)
[2022-05-11] MEDS: ATORVASTATIN 40 MG TAB PO SCH (09:08)
[2022-05-11] MEDS: IRBESARTAN 150 MG TAB PO SCH (09:08)
[2022-05-11] MEDS: LORATADINE 10 MG TAB PO SCH (09:08)
[2022-05-11] MEDS: PANTOprazole 40 MG TAB PO SCH (09:09)
[2022-05-11] MEDS: predniSONE 20 MG TAB PO SCH (09:09)
[2022-05-11] MEDS: ASPIRIN 81 MG ECTAB PO SCH (09:09)
[2022-05-11] MEDS: ENOXAPARIN INJ 40 MG/0.4 ML SYR SQ SCH (09:09)
[2022-05-11 09:20] LABS: Hematocrit (blood only) 35.3 % (34.1-44.9); Hemoglobin 11.6 g/dl (12.0-16.0); Mean Corpuscular Hemoglobin 26.9 pg (25.0-34.0); Mean Corpuscular Hgb Conc 32.9 g/dL (32.0-36.0); Mean Corpuscular Volume 81.7 fL (80.0-100.0); Mean Platelet Volume 9.2 fL (9.4-12.3); Platelet Count 488 K/uL (130-400); RDW Standard Deviation 44.5 fL (36.4-46.3); Red Blood Count 4.32 M/uL (3.93-5.22)
[2022-05-11 09:42] LABS: BUN Creatinine Ratio 20.2 (10-20); Calcium 8.5 mg/dl (8.5-10.1); Creatinine Clr Calc Pharmacy 68.2 ml/min; Est GFR (African American) 80.5 ml/min; Est GFR (Non-African American) 69.4 ml/min; Potassium 3.8 mmol/L (3.5-5.1)
[2022-05-11 10:01] LABS: Basophils # (auto) 0.11 K/uL (0-0.2); Basophils % (auto) 0.2 %; Eosinophils # (auto) 0.01 K/uL (0-0.50); Immature Granulocytes # (auto) 0.81 K/uL (0.00-0.02); Immature Granulocytes % (auto) 1.8 %; Lymphocytes # (auto) 23.21 K/uL (1.2-3.4); Lymphocytes % (auto) 51.5 %; Monocytes # (auto) 3.18 K/uL (0.24-0.82); Monocytes % (auto) 7.1 %; Neutrophils # (auto) 17.78 K/uL (1.4-6.5); Neutrophils % (auto) 39.4 %
--- NOTE | 2022-05-11 13:18 | Hospitalist Progress Note ---
Date of Service May 11, 2022 Assessment & Plan (1) Acute hyponatremia: Plan: (1) Acute hyponatremia: Plan: Acute on chronic hyponatremia Possible underlying SIADH with hypovolemic component given ketonuria Sodium improved from 125, to 135 given IV NSS repeat basic metabolic profile on ff up with PCP Sarabia's palsy left, (grade 3/moderate dysfunction on House-Brackman scale) Symptoms improving Continue prednisone 60 mg p.o. daily x 5 more days to complete 7 day course Antiviral not indicated given moderate dysfunction. Additional 5 units Lantus while on Prednisone hypertension Improved Monitor closely hyperlipidemia on statin Rx DM 2 insulin requiring, well-controlled as of recent hemoglobin A1c of 6.08 February 2022 continue usual regimen hypothyroidism, euthyroid as of today's states CLL,WBC elevated, likely from Prednisone, ff up CBC after Prednisone course DVT prophylaxis. Lovenox subcu given Full code Disposition ff up with PCP in 1 week plan of care discussed with patient and her son over the phone in detail and at length all questions answered They are understanding, agreeable, comfortable with the plan of care Admission and Anticipated Discharge Date Admission Date: May 09, 2022 Subjective ff up for Sarabia's Palsy, etc seen resting in bed, comfortable sitting up alert, brighter translation provided by her son over the phone feels better overall no facial pain able to chew better no problems closing her R eye no other symptoms Review of Systems Review of Systems: all noted and negative except for above Physical Exam Physical Exam: General- oriented x 3, not in distress, speaks in sentences with no effort or accessory muscle use Face- mild r facial droop Eyes- anicteric Neck- no JVD Lungs- clear breath sounds bilaterally, no rales/wheezes Heart- normal rate, regular rhythm; no murmurs Abdomen- normal bowel sounds, nondistended, soft, nontender Extremities- no pretibial edema, no calf tenderness Neuro- alert, oriented x 3; no gross focal neurologic deficits Skin- warm & dry Results & Data Results & Data ([facility]) Vital Signs (Past 12 Hours) Vital Signs Temp Pulse Pulse Pulse Resp BP Pulse Ox 05/11/22 12:56 36.7 C 77 66 18 139/84 94 05/11/22 12:00 36.7 C 66 18 139/84 94 05/11/22 08:09 36.3 C L 59 L 18 159/82 H 95 05/11/22 07:10 60 05/11/22 04:00 36.3 C L 65 22 158/84 H 93 O2 Del Method 05/11/22 12:56 05/11/22 12:00 Room Air 05/11/22 08:09 Room Air 05/11/22 07:10 05/11/22 04:00 Room Air all noted and reviewed including below
--- NOTE | 2022-05-11 13:30 | Discharge Summary ---
Discharge Summary Date of Service May 11, 2022 Notes For Next Care Provider Please repeat basic metabolic profile to evaluate sodium level on follow-up with PCP 1 week postdischarge Repeat CBC after prednisone course Medication Changes From Visit Prednisone 60 mg daily x5 days Increase Lantus by 5 units x 5 days while using prednisone Admission HPI Per Admitting Provider History obtained from patient, family, and records. History somewhat limited from patient secondary to language barrier. Medical history significant for hypertension, hyperlipidemia, DM 2 insulin requiring, postsurgical hypothyroidism, CLL, chronic hyponatremia. Last confinement last month or face cellulitis improved with antibiotic Rx. 2 weeks ago, patient noted cough productive of yellow sputum associated with cold symptoms. Patient drinking a lot of water, more than 2 L a day as per son for the throat/cough discomfort. Symptoms improved after doxycycline course prescribed by PCP for sinusitis. 1 side of patient's face noted to be droopy today as per son. Patient weaker than usual. No focal arm or leg weakness. Some nausea with emesis episode. Patient denies headache, abdominal pain, chest pain, SOB. Patient brought to the ER for evaluation. Stroke alert called upon arrival at the ER. 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 No prior episodes as per son. 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, lives with son Admission Exam Per Admitting Provider GENERAL: Comfortable, pleasant, no respiratory distress SKIN: Normal color, warm HEENT: [place] palpebral conjunctivae, no ptosis, left facial droop affecting the whole half with complete eye closure, dry buccal mucosa NECK : Supple, no tenderness CHEST : CTA, no tenderness HEART : RRR, no obvious murmurs ABDOMEN: Some distention, nontender EXTREMITIES : Minimal LE swelling, no LE tenderness, no other conspicuous deformities noted NEUROLOGIC : Coherent, left facial droop, gait and stance not assessed Principal Dx & Hospital Course #1 = Principal Diagnosis (1) Acute hyponatremia: Acute on chronic hyponatremia Possible underlying SIADH with hypovolemic component given ketonuria Sodium improved from 125, to 135 given IV NSS repeat basic metabolic profile on ff up with PCP Sarabia's palsy left, (grade 3/moderate dysfunction on House-Brackman scale) Symptoms improving Continue prednisone 60 mg p.o. daily x 5 more days to complete 7 day course Antiviral not indicated given moderate dysfunction. Additional 5 units Lantus while on Prednisone Hypertension Improved Monitor closely hyperlipidemia on statin Rx DM 2 insulin requiring, well-controlled as of recent hemoglobin A1c of 6.08 February 2022 continue usual regimen hypothyroidism, euthyroid as of today's states CLL,WBC elevated, likely from Prednisone, ff up CBC after Prednisone course DVT prophylaxis. Lovenox subcu given Full code Disposition ff up with PCP in 1 week plan of care discussed with patient and her son over the phone in detail and at length all questions answered They are understanding, agreeable, comfortable with the plan of care Discharge Exam General- oriented x 3, not in distress, speaks in sentences with no effort or accessory muscle use Face- mild r facial droop Eyes- anicteric Neck- no JVD Lungs- clear breath sounds bilaterally, no rales/wheezes Heart- normal rate, regular rhythm; no murmurs Abdomen- normal bowel sounds, nondistended, soft, nontender Extremities- no pretibial edema, no calf tenderness Neuro- alert, oriented x 3; no gross focal neurologic deficits Skin- warm & dry Updated Medication List Medication Instructions Recorded Confirmed Type atorvastatin 40 mg tablet 40 mg PO QAM 05/08/19 05/09/22 History metoprolol succinate 25 mg 25 mg PO QAM 05/08/19 05/09/22 History tablet,extended release 24 hr pantoprazole 40 mg tablet,delayed 40 mg PO QAM 11/30/19 05/09/22 History release (Protonix) aspirin 81 mg tablet,delayed 81 mg PO DAILY 07/26/20 05/09/22 History release (Shira Low Dose Aspirin) insulin glargine 100 unit/mL (3 32 unit subcut PM 07/26/20 05/09/22 History mL) subcutaneous pen (Lantus Solostar U-100 Insulin) irbesartan 150 mg tablet 150 mg PO QAM 07/26/20 05/09/22 History metformin 500 mg tablet,extended 1,000 mg PO QAM 07/26/20 05/09/22 History release 24 hr albuterol sulfate 90 mcg/actuation 2 puff inhalation QID PRN cough or 04/01/22 05/09/22 History aerosol inhaler (Ventolin HFA) wheezing cholecalciferol (vitamin D3) 125 125 mcg PO DAILY 04/01/22 05/09/22 History mcg (5,000 unit) tablet (Vitamin D3) cyanocobalamin (vitamin B-12) 1,000 mcg IM .EVERY 3 MONTHS 04/01/22 05/09/22 History 1,000 mcg/mL injection solution diphenhydramine HCl 12.5 mg/5 mL 25 mg PO Q12 PRN allergy or itch 04/01/22 05/09/22 History oral elixir fluticasone propionate 50 2 spray intranasal DAILY PRN 04/01/22 05/09/22 History mcg/actuation nasal Congestion spray,suspension ursbtogilbh-atocrckfd-xns C-Mn 500 1 cap PO DAILY 04/01/22 05/09/22 History mg-400 mg capsule ketotifen fumarate 0.025 % (0.035 1 drp OPL [facility] 04/01/22 05/09/22 History %) eye drops loratadine 10 mg tablet 10 mg PO QAM 04/01/22 05/09/22 History montelukast 10 mg tablet 10 mg PO HS 04/01/22 05/09/22 History calcium acetate-magnesium carb 1 tab PO DAILY 05/09/22 05/09/22 History levothyroxine 125 mcg tablet 125 mcg PO DAILYBB 05/09/22 05/09/22 History linagliptin 5 mg tablet (Tradjenta) 5 mg PO QAM 05/09/22 05/09/22 History metformin 500 mg tablet,extended 500 mg PO .EVENING MEAL 05/09/22 05/09/22 History release 24 hr tacrolimus 0.1 % topical ointment 1 applic topical BID 05/09/22 05/09/22 History prednisone 20 mg tablet 60 mg PO DAILY 5 days #15 tabs 05/11/22 Rx Hospital Stay Data Consultations 05/09/22 19:39 ED Decision to Admit Stat Diagnostic Imagining Performed 05/09/22 16:29 CT head/brain wo con Stat Laboratory Results WBC 45.10 K/ul (4.8-10.8) H* 05/11/22 08:46 RBC 4.32 M/uL (3.93-5.22) 05/11/22 08:46 Hgb 11.6 g/dl (12.0-16.0) L 05/11/22 08:46 Hct 35.3 % (34.1-44.9) 05/11/22 08:46 MCV 81.7 fL (80.0-100.0) 05/11/22 08:46 MCH 26.9 pg (25.0-34.0) 05/11/22 08:46 MCHC 32.9 g/dL (32.0-36.0) 05/11/22 08:46 RDW Std Deviation 44.5 fL (36.4-46.3) 05/11/22 08:46 RDW Coeff of Margaret 15.0 % (11.5-14.5) H 05/11/22 08:46 Plt Count 488 K/uL (130-400) H 05/11/22 08:46 MPV 9.2 fL (9.4-12.3) L 05/11/22 08:46 Immature Gran % (Auto) 1.8 % 05/11/22 08:46 Neut % (Auto) 39.4 % 05/11/22 08:46 Lymph % (Auto) 51.5 % 05/11/22 08:46 [place] % (Auto) 7.1 % 05/11/22 08:46 Eos % (Auto) 0.0 % 05/11/22 08:46 Baso % (Auto) 0.2 % 05/11/22 08:46 Neut # (Auto) 17.78 K/uL (1.4-6.5) H 05/11/22 08:46 Lymph # (Auto) 23.21 K/uL (1.2-3.4) H 05/11/22 08:46 [place] # (Auto) 3.18 K/uL (0.24-0.82) H 05/11/22 08:46 Eos # (Auto) 0.01 K/uL (0-0.50) 05/11/22 08:46 Baso # (Auto) 0.11 K/uL (0-0.2) 05/11/22 08:46 Immature Gran # (Auto) 0.81 K/uL (0.00-0.02) H 05/11/22 08:46 Echinocytes 1+ 05/10/22 04:46 PT 10.8 Seconds (9.0-12.0) 05/09/22 17:00 INR 1.0 (0.9-1.1) 05/09/22 17:00 APTT 32.0 Seconds (21.0-31.0) H 05/09/22 17:00 PTT Ratio 1.2 05/09/22 17:00 Sodium 135 mmol/L (136-145) L 05/11/22 08:46 Potassium 3.8 mmol/L (3.5-5.1) 05/11/22 08:46 Chloride 102 mmol/L (98-107) 05/11/22 08:46 Carbon Dioxide 26 mmol/L (21-32) 05/11/22 08:46 Anion Gap 7 (3-11) 05/11/22 08:46 BUN 17 mg/dl (6-23) 05/11/22 08:46 Creatinine 0.84 mg/dl (0.6-1.2) 05/11/22 08:46 Est Cr Clr Drug Dosing 68.2 ml/min 05/11/22 08:46 Est GFR ( Amer) 80.5 ml/min 05/11/22 08:46 Est GFR (Non-Af Amer) 69.4 ml/min 05/11/22 08:46 BUN/Creatinine Ratio 20.2 (10-20) H 05/11/22 08:46 Glucose 134 mg/dl (70-99(Fasting)) H 05/11/22 08:46 POC Glucose 152 mg/dl (70-99) H 05/11/22 11:55 Osmolality 272 mOsm/kg (280-300) L 05/09/22 17:00 Calcium 8.5 mg/dl (8.5-10.1) 05/11/22 08:46 Magnesium 1.6 mg/dl (1.7-2.4) L 05/09/22 17:00 Total Bilirubin 0.4 mg/dl (0.2-1.0) 05/09/22 17:00 AST 13 U/L (13-39) 05/09/22 17:00 ALT 10 U/L (7-52) 05/09/22 17:00 Alkaline Phosphatase 67 U/L (34-104) 05/09/22 17:00 Total Protein 9.0 gm/dl (6.0-8.3) H 05/09/22 17:00 Albumin 3.8 gm/dl (3.4-5.0) 05/09/22 17:00 Globulin 5.2 gm/dl (2.5-4.0) H 05/09/22 17:00 Albumin/Globulin Ratio 0.7 (0.9-2) L 05/09/22 17:00 Procalcitonin < 0.05 ng/ml (0-0.5) 05/09/22 17:00 TSH 2.672 uIu/ml (0.300-4.500) 05/09/22 17:00 Urine Color Yellow 05/09/22 18:44 Urine Appearance Clear (Clear) 05/09/22 18:44 Urine pH 5.5 (4.5-7.5) 05/09/22 18:44 Ur Specific [place] 1.014 (1.000-1.030) 05/09/22 18:44 Urine Protein Negative (Negative) 05/09/22 18:44 Urine Glucose (UA) Negative (Negative) 05/09/22 18:44 Urine Ketones Trace (Negative) H 05/09/22 18:44 Urine Blood Negative (Negative) 05/09/22 18:44 Urine Nitrite Negative (Negative) 05/09/22 18:44 Urine Bilirubin Negative (Negative) 05/09/22 18:44 Urine Urobilinogen Negative (Negative) 05/09/22 18:44 Ur Leukocyte Esterase 2+ (Negative) H 05/09/22 18:44 Urine WBC (Auto) 10-30 /hpf (0-5) H 05/09/22 18:44 Urine RBC (Auto) 0-4 /hpf (0-4) 05/09/22 18:44 U Hyaline Cast (Auto) 1-5 /lpf (0-5) 05/09/22 18:44 U Epithel Cells (Auto) >30 /lpf (0-5) H 05/09/22 18:44 Urine Bacteria (Auto) Negative (Negative) 05/09/22 18:44 Urine Osmolality 351 mOsm/kg (500-800) L 05/09/22 18:44 Ur Random Sodium 19 mmol/L 05/09/22 18:44 Lyme Disease IgG Ab Positive (Negative) A 05/09/22 17:00 Lyme Disease IgM Ab Negative (Negative) 05/09/22 17:00 SARS-CoV-2 (PCR) NEGATIVE (Negative) 05/09/22 18:44 Influenza Type A (PCR) Negative (Neg) 05/09/22 18:44 Influenza Type B (PCR) Negative (Neg) 05/09/22 18:44 RSV (RT-PCR) Negative (Neg) 05/09/22 18:[address] 05/09/22 16:29 CT head/brain wo con CLINICAL HISTORY: Stroke Alert Technique: Contiguous axial CT images of the head were acquired from the base of the skull to the vertex without intravenous contrast administration. Images were viewed in brain, subdural and bone windows. Automated dose lowering techniques and/or adjustment according to patient size were utilized for this exam. Comparison: None available at the time of this dictation. Findings: The ventricles, basal cisterns, and cerebral sulci are normal. There is no acute intracranial hemorrhage or evidence of acute territorial infarction. Neither mass effect, shift of the midline structures, nor abnormal extra-axial fluid collections are shown. Right maxillary sinus disease is noted. The orbits appear normal. There are no acute fractures of the calvaria or scalp swelling. Impression: 1. No acute intracranial hemorrhage, no evidence of acute territorial infarction or other acute intracranial disease process. 2. Right maxillary sinus disease. ACT 112: Negative or not required by law. Electronically signed by: Mateo Ferreira M.D. 05/09/2022 5:32 PM Chest X-Ray 05/09/22 18:23 XR chest 1V portable CLINICAL HISTORY: Weakness, leukocytosis TECHNIQUE: Single frontal radiograph of the chest was obtained. Comparison: Comparison is made to chest radiograph 04/02/2022 FINDINGS: No lines and tubes are seen. Calcified aortic knob is seen. The lungs are clear. No evidence of pleural effusion or pneumothorax. IMPRESSION: No acute chest disease. ACT 112: Negative or not required by law. Electronically signed by: Mateo Ferreira M.D. 05/09/2022 7:31 PM Pending Results Patient Have Any Pending Studies at Discharge: No Discharge Instructions Given to Patient (Per Discharging Provider) PLEASE REFER TO YOUR NEW MEDICATION LIST AND FOLLOW INSTRUCTIONS CAREFULLY. YOUR NEW MEDICATIONS INCLUDE: Prednisone 60 mg daily x5 days-always take with a full stomach Increase Lantus to 37 units daily x5 days (while taking prednisone, to prevent increased blood sugar) PLEASE CALL YOUR PRIMARY CARE PHYSICIAN OR RETURN TO THE ER IF WITH WORSENING OF SYMPTOMS, INCLUDING Worsening of facial droop, trouble swallowing or chewing, trouble with closing the right eye, Blood sugar persistently more than 250, etc. FOLLOW UP WITH PRIMARY CARE PHYSICIAN OUTLINED ABOVE. Total Time Total Time Spent Total Time Spent (In Minutes): >30 minutes
[2022-05-13 07:47] LABS: 18KDIGG Band NON-REACTIVE; 23KDIGG Band REACTIVE; 23KDIGM Band NON-REACTIVE; 28KDIGG Band REACTIVE; 30KDIGG Band NON-REACTIVE; 39KDIGG Band REACTIVE; 39KDIGM Band NON-REACTIVE; 41KDIGG Band REACTIVE; 41KDIGM Band REACTIVE; 45KDIGG Band NON-REACTIVE; 58KDIGG Band REACTIVE; 66KDIGG Band NON-REACTIVE; 93KDIGG Band REACTIVE; Lyme Antibodies, WB IgG POSITIVE (NEGATIVE); Lyme Antibodies, WB IgM NEGATIVE (NEGATIVE)
== END 2022-05-11 13:12 | disposition home or self-care (01) | DRG 644 ==
LOC: ED 16:16 → 2N 20:59